=== PATIENT | male | born 1960 | race African-American/Black ===

== ENCOUNTER 2020-07-26 09:32 | Outpatient (REF) | payer MEDICAID, SELFPAY | END 2020-07-26 09:33 | disposition home or self-care (01) | LOC: HO.LAB 09:32 | PROVIDERS: Visit Provider Internal Medicine | DX: Z20.828 Contact with and (suspected) exposure to other viral communicable diseases (principal) | CPT/HCPCS: C9803; U0003 ==

== ENCOUNTER 2020-09-30 14:05 | Outpatient (REF) | payer MEDICAID, SELFPAY | END 2020-09-30 14:06 | disposition home or self-care (01) | LOC: HO.LAB 14:05 | PROVIDERS: Visit Provider Internal Medicine | DX: Z20.822 Contact with and (suspected) exposure to COVID-19 (principal) | CPT/HCPCS: 36415; C9803; U0003 ==

== ENCOUNTER 2020-12-30 09:43 | Outpatient (REF) | payer MEDICAID, SELFPAY ==
--- NOTE | ~2020-12-30 | CT_ITS ---
EXAMINATION: CT CHEST SCREENING CLINICAL INFORMATION: Smoking history COMPARISON: Previous chest CT scans most recent October 2019 TECHNIQUE: Multidetector volumetric CT imaging of the chest is performed without contrast using low dose technique. Additional 2D coronal and sagittal reformatted images and axial 3D maximum intensity projection (MIP) images are generated on the CT workstation. This CT examination was performed using dose optimization techniques as appropriate, variously including the following: *Automated exposure control *Adjustment of mA and/or kV according to patient size (this includes techniques or standardized protocols for targeted exams where dose is matched to indication/reason for exam; i.e. extremities or head) *Use of iterative reconstruction technique DLP: 62 mGy-cm FINDINGS: LUNGS: There is evidence of emphysema. There is a 3 mm triangular-shaped peripheral or subpleural left upper lobe nodule adjacent to the fissure axial image 111 series 4 that is stable. There is a 2 mm calcified right lower lobe nodule axial image series 4 that is stable. There is a 2 mm peripheral right lower lobe nodule axial image 361 series 5 No new pulmonary nodules are seen. No endobronchial or endotracheal lesion is seen. MEDIASTINUM: There is mild coronary artery calcification. The mediastinum is otherwise normal. PLEURA: There is no pleural effusion. No pleural mass or thickening. AXILLA: No lymphadenopathy. UPPER ABDOMEN: There are several small peripheral calcifications in the liver. There is a small calcification in the spleen. There may be diverticulosis of the colon. OSSEOUS STRUCTURES: There are mild degenerative changes of the spine. CT/CT lung screening IMPRESSION: Emphysema. Stable small pulmonary nodules. Mild coronary artery calcification. ASSESSMENT: Lung-RADS category 2: Benign RECOMMENDATION: Annual low-dose chest CT follow-up recommended.
== END 2020-12-30 09:44 | disposition home or self-care (01) ==
LOC: HO.CT 09:43
PROVIDERS: Visit Provider Surgery
DX: Z12.2 Encounter for screening for malignant neoplasm of respiratory organs (principal); F17.210 Nicotine dependence, cigarettes, uncomplicated
CPT/HCPCS: 71271

== ENCOUNTER 2021-03-21 13:00 | Outpatient (RCR) | payer MEDICARE, MEDICAID, SELFPAY | END 2021-03-31 10:13 | disposition home or self-care (01) | LOC: HO.PT 13:00 | PROVIDERS: PCP Internal Medicine; Visit Provider Internal Medicine | DX: M54.5 Low back pain (principal) | CPT/HCPCS: 97110; 97161 ==

== ENCOUNTER 2021-04-17 11:35 | Outpatient (REF) | payer MEDICARE, MEDICAID, SELFPAY ==
--- NOTE | ~2021-04-17 | XR_ITS ---
EXAMINATION: XR THORACIC SPINE CLINICAL INFORMATION: Low back pain COMPARISON: CT of chest December 30, 2020, November 11, 2018. Chest x-ray March 25, 2017 TECHNIQUE: 3 views of the thoracic spine were obtained. FINDINGS: There is slight anterior wedge compression deformity of the T11 and T10 and T9 vertebrae unchanged since prior chest x-ray March 25, 2017. No fracture line. The alignment of the vertebrae is normal. Minor degenerative lipping at the anterior endplates of lumbar vertebrae. Thoracic disc space heights are normal. XR/XR thoracic spine 3V IMPRESSION: 1. Slight anterior wedge compression deformities of T11, T10 and T9 vertebrae unchanged since chest x-ray March 25, 2017. No acute abnormality. 2. Mild degenerative spondylosis of the spine.
--- NOTE | ~2021-04-17 | XR_ITS ---
EXAMINATION: XR LUMBOSACRAL SPINE CLINICAL INFORMATION: Low back pain. COMPARISON: MRI lumbar spine January 24, 2007 TECHNIQUE: Three views of the lumbosacral spine. FINDINGS: Lumbar vertebrae have normal height. There is no fracture or bone destruction. The alignment of the vertebrae is normal. Mild degenerative lipping at the anterior endplates of lumbar vertebrae. Slight lumbar disc height narrowing at L3-L4. There has been mild progression of lumbar degenerative changes since prior MR exam of 2006. Facet joints are normal. No spondylolysis or spondylolisthesis. XR/XR lumbar spine 2-3V IMPRESSION: 1. No acute abnormality. 2. Mild degenerative spondylosis lumbar spine.
== END 2021-04-17 11:36 | disposition home or self-care (01) ==
LOC: HO.XRAY 11:35
PROVIDERS: PCP Internal Medicine; Visit Provider Internal Medicine
DX: M54.5 Low back pain (principal)
CPT/HCPCS: 72072; 72100

== ENCOUNTER 2022-12-29 08:42 | Outpatient (REF) | payer MEDICARE, MEDICAID, SELFPAY ==
--- NOTE | ~2022-12-29 | CT_ITS ---
EXAMINATION: CT CHEST WITHOUT CONTRAST CLINICAL INFORMATION: Emphysema. Pulmonary nodule. COMPARISON: Previous chest CT most recent December 2020 TECHNIQUE: Multidetector volumetric CT imaging of the chest was done. Axial MIP volume rendering provided. Sagittal and coronal reformatted images were obtained. This CT examination was performed using dose optimization techniques as appropriate, variously including the following: *Automated exposure control *Adjustment of mA and/or kV according to patient size (this includes techniques or standardized protocols for targeted exams where dose is matched to indication/reason for exam; i.e. extremities or head) *Use of iterative reconstruction technique DLP: 145 mGy-cm FINDINGS: GLASS CALIBRATOR: LUNGS: There is a new 4 mm left lower lobe nodule axial image 321 series 5. Pulmonary nodules are otherwise stable. No endobronchial or endotracheal lesion. There is evidence of emphysema. There is mild bronchial wall thickening and increased at peribronchial attenuation in the right lower lobe questionable for airways disease/respiratory bronchiolitis. MEDIASTINUM: Question wall thickening of the distal thoracic esophagus. The mediastinum is otherwise normal. CORONARY ARTERY CALCIFICATION: Mild PLEURA: There is no pleural effusion. No pleural mass or thickening. AXILLA: No lymphadenopathy. UPPER ABDOMEN: Small calcifications in the liver and spleen that are stable. OSSEOUS STRUCTURES: Mild degenerative changes of the spine. CT/CT chest wo IV con IMPRESSION: Emphysema. New 4 mm left lower lobe pulmonary nodule. Pulmonary nodules are otherwise stable. According to the UPDATED 2017 Fleischner Society recommendations, the advised follow-up imaging for less than 6 mm solid nodule: Low risk, no chest CT follow-up and high risk, optional chest CT follow-up in one year. Question wall thickening of the distal thoracic esophagus. Fleischner guidelines were followed.
== END 2022-12-29 08:43 | disposition home or self-care (01) ==
LOC: HO.CT 08:42
PROVIDERS: PCP Internal Medicine; Visit Provider Internal Medicine
DX: R91.8 Other nonspecific abnormal finding of lung field (principal); J43.9 Emphysema, unspecified
CPT/HCPCS: 71250

== ENCOUNTER 2023-06-07 18:34 | Outpatient (REF) | payer MEDICARE, MEDICAID, SELFPAY ==
[2023-06-07 19:42] LABS: Influenza A PCR NEGATIVE (Negative); Influenza B PCR NEGATIVE (Negative); Resp Syncy Virus RNA Qual PCR NEGATIVE (Negative); SARS COV2 PCR INHOUSE NEGATIVE (Negative)
== END 2023-06-07 18:35 | disposition home or self-care (01) ==
LOC: HO.HHCLNP 18:34
PROVIDERS: Visit Provider Internal Medicine
DX: Z20.822 Contact with and (suspected) exposure to COVID-19 (principal); J44.1 Chronic obstructive pulmonary disease with (acute) exacerbation
CPT/HCPCS: 0241U

== ENCOUNTER 2023-06-30 14:43 | Outpatient (AMB) | payer MEDICARE, MEDICAID, SELFPAY ==
--- NOTE | 2023-06-30 14:48 | MHC.OFFVIS ---
Intake Vital Signs 06/30/23 14:51 Height 5 ft 4 in Weight 145 lb 8.081 oz BMI 25.0 BP 120/81 Blood Pressure Location Lt brachial Position Sitting Pulse 84 Intake Visit Reasons: abnormalities of esophagus Intake Note: Ronak presents in the office as a new patient. CC: He states that he is having COPD issues - it has been acting up. He states that he only has pains in his stomach when he coughs. He has burning in his throat and has a constant cough that will not go away. Allergies No Known Allergies [No Known Allergies*] Allergy (Unverified 06/30/23 14:51) HPI HPI Comments History of Present Illness Details This is a 63y.o M with PMH of smoking that has led to COPD who is here for abnormal imaging. Pt reports having annual LDCTs for lung cancer screening. Most recent scan was in December of this year which also incidentally showed thickening of lower esophagus. Pt himself does not report any abd pain, chest pain, difficulty swallowing or unintentional weight loss. In terms of colorectal cancer screening, he reports having a cologuard test done through his PCP's office which was negative. Records not available re this. [facility] Family History (Updated 06/30/23 @ 14:53 by ARCELIA Veronica) Paternal Grandfather Colon cancer Social History (Updated 06/30/23 @ 14:52 by ARCELIA Veronica) Household Members: Family Alcohol intake: current Alcohol intake frequency: holidays/special occasions only Patient Tobacco Use Status: Former Tobacco user Substance Use Type: Marijuana Review of Systems Const All systems reviewed & are unremarkable except as noted in HPI and below Physical Exam Vital Signs: Last Vital Signs Pulse 84 06/30/23 14:51 BP 120/81 06/30/23 14:51 BMI result Body Mass Index 25.0 Gen appear: NAD HEENT: nonicteric, no cervical lymphadenopathy Chest: CTA CVS: Regular S1/S2 Abd: soft, nontender, nondistended, bowel sounds + Ext: no peripheral edema Neuro: A/Ox3, noted to move all extremities spontaneously Psych: interacting appropriately Assessment & Plan Assessment & Plan (1) Esophagitis: Code(s): K20.90 - Esophagitis, unspecified without bleeding (2) Colon cancer screening: Code(s): Z12.11 - Encounter for screening for malignant neoplasm of colon Plan 1. Noted incidentally on imaging in December. Pt does not report any sx currently however due to risk factors: age, sex, smoking status, will proceed with direct visualisation within the next few weeks. Ddx include erosive esophagitis, malignancy, underdistention of lower esophagus. Omeprazole 20 mg PO once daily prescribed empirically to be continued till EGD. 2. CRC screening: as above, cologuard negative this year per his report. Encouraged him to consider a colo for next screening which will be due in 3 years. Follow up after EGD. Orders: Orders Complete Blood Count no Diff 06/30/23 K20.90 - Esophagitis, unspecified without bleeding Medications: New omeprazole 20 mg PO DAILY 90 caps 0RF Coding Level of Care Code New Pt Level 4 (22223) Diagnoses Esophagitis K20.90 Colon cancer screening Z12.11
[2023-06-30 14:51] VITALS: BP 120/81; PULSE 84; BMI 25.0
== END 2023-06-30 16:10 | disposition home or self-care (01) ==
PROVIDERS: PCP Internal Medicine; Visit Provider Internal Medicine
DX: K20.90 Esophagitis, unspecified without bleeding (principal); Z12.11 Encounter for screening for malignant neoplasm of colon
CPT/HCPCS: 99204

== ENCOUNTER → 2023-06-30 14:43 | Outpatient (BNVA) | payer MEDICARE, MEDICAID, SELFPAY | PROVIDERS: PCP Internal Medicine; Visit Provider Internal Medicine ==

== ENCOUNTER 2023-08-27 11:07 | Emergency (ER) | payer MEDICARE, MEDICAID, SELFPAY ==
--- NOTE | ~2023-08-27 | XR_ITS ---
EXAMINATION: XR CHEST CLINICAL INFORMATION: Pain COMPARISON: Previous chest x-ray from [address] most recent December 2022 TECHNIQUE: 2 views of the chest were obtained. FINDINGS: The cardiac and mediastinal contours are stable. The lungs are well-inflated suggestive of COPD. The lungs are clear. No pleural effusion or pneumothorax. Mild degenerative changes of the spine. XR/XR chest 2V IMPRESSION: Well-inflated lungs. No evidence for acute disease in the chest.
[2023-08-27 11:30] VITALS: BP 135/103; PULSE 101; RESP 22; TEMP 36.2; O2SAT 97; BMI 23.4
--- NOTE | 2023-08-27 11:32 | ED.GENADULT ---
HPI - General Adult General Chief complaint: Upper Respiratory Symptoms Stated complaint: sob Time Seen by Provider: 08/27/23 16:13 Source: patient and old records reviewed Mode of arrival: ambulatory Limitations: no limitations History of Present Illness HPI narrative: 63 yo male with PMH of gastritis, COPD, asthma does not use home O2 here with c/o wheezing, sputum production and chills since Wednesday - he states he was possibly around someone sick. He came in as his neb and inhalers are not working. He cannot remember the last time he was on prednisone. MD complaint: asthma exacerbation Onset (ago): day(s) (4) Location: chest Radiation: non-radiation Severity: moderate Quality: other (tightness) Relieving factors: rest Exacerbating factors: other (coughing, exertion) Associated symptoms: cough, fever/chills and loss of appetite Treatments prior to arrival: other (INH and neb) Related Data Home Medications Medication Instructions Recorded Confirmed acetaminophen 500 mg tablet 500 mg PO Q6H PRN mild pain 06/30/23 albuterol sulfate 90 mcg/actuation inhalation 06/30/23 aerosol inhaler (Ventolin HFA) budesonide-formoterol HFA 160 inhalation 06/30/23 mcg-4.5 mcg/actuation aerosol inhaler (Symbicort) umeclidinium 62.5 mcg/actuation 1 inh inhalation DAILY 06/30/23 blister powder for inhalation (Incruse Ellipta) varenicline 1 mg tablet mg PO 06/30/23 vit C 250 mg-vit E 90 mg-zinc 40 1 cap PO BID 06/30/23 mg-copper 1 [id number] capsule (PreserVision AREDS-2) Previous Rx's Medication Instructions Recorded omeprazole 20 mg capsule,delayed 20 mg PO DAILY #90 caps 06/30/23 release azithromycin 250 mg tablet 250 mg PO DAILY 4 days #4 tabs 08/27/23 prednisone 20 mg tablet 40 mg (2 x 20 mg) PO DAILY 5 days 08/27/23 #10 tabs Allergies Allergy/AdvReac Type Severity Reaction Status Date / Time No Known Allergies Allergy Verified 08/27/23 11:30 [No Known Allergies*] Review of Systems Review of Systems: Constitutional : No Fever, pos Chills ENT/Mouth : No Hoarseness, No sore throat, No Rhinorrhea Eyes: No Redness, No Discharge, No Vision Changes Cardiovascular : No Chest Pain, positive SOB, positive Dyspnea on Exertion, No Edema Respiratory : positive Cough, No Sputum, positive Wheezing, Gastrointestinal : No Nausea, No Vomiting, No Diarrhea, No abdominal Pain Genitourinary : No Dysuria, No Hematuria Musculoskeletal : No joint pain, No Myalgias Skin : No rash Neuro : No Weakness, No Numbness, No Headache Psych : No anxiety, depression Heme/Lymph: No Bruising, No Bleeding Endocrine : No Polyuria, No Polydipsia All other systems reviewed and are negative [facility] Past Medical History Attestation statement: The following information was validated with the patient. Source: old records reviewed Medical History COPD (chronic obstructive pulmonary disease) Esophagitis Family History Family History (Updated 06/30/23 @ 14:53 by ARCELIA Veronica) Paternal Grandfather Colon cancer Social History Social History Household Members: Family Alcohol intake: current Alcohol intake frequency: holidays/special occasions only Patient Tobacco Use Status: Former Tobacco user Smoked in Last 30 Days: No Use of substances other than those prescribed or required for medical reasons: No Substance Use Type: Marijuana Advance Directives: No Advance Directives Information Provided: Yes Physical Exam ED Vital Signs: Vital Signs - 24 hr 08/27/23 11:30 08/27/23 16:09 08/27/23 16:09 Temperature 97.2 F 98.5 F Pulse Rate 101 H 100 Respiratory Rate 22 H 20 Blood Pressure 135/103 H 126/82 Pulse Oximetry 97 98 98 Oxygen Delivery Method Room Air Room Air Room Air 08/27/23 17:29 Temperature Pulse Rate 78 Respiratory Rate 18 Blood Pressure Pulse Oximetry Oxygen Delivery Method BMI result Body Mass Index 23.4 Appearance: Alert. Oriented X3. No acute distress. Eyes: Pupils equal, round and reactive to light. ENT: Pharynx normal. Neck: Normal inspection. Neck supple. CVS: Normal heart rate and rhythm. Pulses normal. Respiratory: No respiratory distress. Breath sounds diffuse exp and insp wheezes Abdomen: Soft and nontender. Skin: Skin warm and dry. Normal skin color. Normal skin turgor. Extremities: No lower extremity edema. No calf ttp Neuro: Oriented X 3. No motor deficit. No sensory deficit. Course Course Course Narrative: RME- 63-year-old male presents for evaluation shortness of breath for last 3 days. Reports no improvement with inhalers. Plan for viral swab, chest x-ray Medications Administered Discontinued Medications Generic Name Dose Route Start Last Admin Trade Name Helga PRN Reason Stop Dose Admin Albuterol Sulfate 2.5 mg/ 5 mg 08/27/23 17:20 08/27/23 17:27 Albuterol Sulfate 2.5 mg INHALE 08/27/23 17:21 5 mg ONCE ONE Administration Magnesium Sulfate 2 gm in 50 mls @ 150 mls/hr 08/27/23 16:35 08/27/23 17:10 Magnesium Sulfate/H2o IV 08/27/23 16:54 Infused ONCE ONE Infusion Methylprednisolone Sodium Succinate 60 mg 08/27/23 16:34 08/27/23 16:49 Methylprednisolone Sod Succ 125 Mg/2 Ml Vial IVPUSH 08/27/23 16:35 60 mg ONCE ONE Administration Medical Decision Making Medical Decision Making [facility] Narrative: 63 yo male with PMH of gastritis, COPD, asthma here with 4 days of cough, wheezing and chills - no fevers at this time he is wheezing no hypoxia will obtain basic labs, EKG, CXR, viral panel start on neb and IV steroids along with magnesium. Suspect asthma exacerbation - he smokes THC but not cigarettes Differential Diagnosis Differential Diagnoses: The differential diagnosis associated with the presentation includes asthma, COPD Admission/Observation Consideration of admission/observation: Escalation of care including admission/observation considered 98% on RA< feels much better clear lungs stable for DC at this time Lab Data [facility] Lab Attestation statement: I reviewed the patient's lab results. 08/27/23 16:44 08/27/23 16:43 Labs: Lab Results 08/27/23 08/27/23 08/27/23 Range/Units 11:52 16:43 16:44 WBC 3.6 L (4.8-10.8) X10*3/uL RBC 5.23 (4.60-5.80) X10*6/uL Hgb 15.7 (14.0-18.0) g/dl Hct 45.4 (42.0-52.0) % MCV 86.8 (80.0-98.0) fL MCH 30.0 (27.0-33.0) pg MCHC 34.6 (31.0-36.0) g/dl RDW 13.4 (11.0-16.0) % Plt Count 200 (160-400) X10*3/uL MPV 8.4 L (9.4-12.4) fL Immature Gran % (Auto) 0.3 (0.0-0.4) % Neut % (Auto) 46.4 (45-73) % Lymph % (Auto) 33.5 (20-40) % [place] % (Auto) 19.2 H (2-11) % Eos % (Auto) 0.0 (0-4) % Baso % (Auto) 0.6 (0-2) % Lymph # (Auto) 1.2 (1.2-4.9) X10*3/uL [place] # (Auto) 0.7 (0.1-1.2) X10*3/uL Eos # (Auto) 0.0 (0.0-0.4) X10*3/uL Baso # (Auto) 0.0 (0.0-0.2) X10*3/uL Abs Immat Gran (auto) 0.01 (0.00-0.03) X10*3/uL Absolute Neuts (auto) 1.7 L (2.0-8.3) x10*3/uL Absolute Nucleated RBC 0.000 (0.0-0.012) X10*3/uL Nucleated RBC % (auto) 0.0 (0.0-0.2) /100WBC Sodium 136 (135-145) mmol/L Potassium 4.5 (3.3-5.1) mmol/L Chloride 104 (96-108) mmol/L Carbon Dioxide 25 (22-29) mmol/L Anion Gap 12 (12-20) BUN 14 (9-16) mg/dL Creatinine 1.05 (0.5-1.4) mg/dL Estim Creat Clear Calc 59.5 Estimated GFR > 60 Random Glucose 89 (60-115) mg/dL Calcium 9.3 (8.4-10.2) mg/dL Magnesium 2.3 (1.6-2.6) mg/dL Total Bilirubin 0.3 (0.0-1.0) mg/dL Direct Bilirubin 0.1 (0.0-0.5) mg/dL AST 20 (5-37) U/L ALT 13 (0-40) U/L Alkaline Phosphatase 103 (39-117) U/L Total Protein 7.8 (6.5-8.0) g/dL Albumin 4.2 (3.5-5.0) g/dL Influenza Type A (PCR) NEGATIVE (Negative) Influenza Type B (PCR) NEGATIVE (Negative) RSV RNA Qual (PCR) NEGATIVE (Negative) SARS-CoV-2 RNA (RT-PCR) NEGATIVE (Negative) Independent Interpretation I performed an independent interpretation of an: EKG and Plain X-Ray (normal ) Interpretation: Rate: 91 Rhythm: NSR [place]: normal Normal P waves. Normal RAIN. RBBB ST T wave : inverted t wave V1, no ROHAN qTC: normal prior studies: no priors since 2006 RBBB is new The study has been interpreted contemporaneously by me. . Radiology Impression Discussion of test interpretation with radiology: I have reviewed the radiologist's reading. External Record Review External record reviewed: Inpatient record Prescription Management I considered prescription management with: Antibiotic and Other Discharge Plan Discharge Clinical Impression: Acute bronchitis with COPD Patient Disposition: Home, Self-Care Instructions: COPD (Chronic Obstructive Pulmonary Disease) (ED) Additional Instructions: return for worsening breathing, fevers, chest pain no improvement or any other concerns. take all medications. continue to use your inhalers and nebulizer. Prescriptions: New azithromycin 250 mg tablet 250 mg PO DAILY 4 Days Qty: 4 0RF Rx Instructions: start on day 2 of therapy prednisone 20 mg tablet 40 mg PO DAILY 5 Days Qty: 10 0RF No Action albuterol sulfate [Ventolin HFA] 90 mcg/actuation HFA aerosol inhaler inhalation budesonide-formoterol [Symbicort] 160-4.5 mcg/actuation HFA aerosol inhaler inhalation Incruse Ellipta 62.5 mcg/actuation blister with device 1 inh inhalation DAILY acetaminophen 500 mg tablet 500 mg PO Q6H PRN (Reason: mild pain) PreserVision AREDS-2 250-90-40-1 mg capsule 1 cap PO BID varenicline 1 mg tablet PO omeprazole 20 mg capsule,delayed release(DR/EC) 20 mg PO DAILY Qty: 90 0RF
[2023-08-27 12:40] LABS: Influenza A PCR NEGATIVE (Negative); Influenza B PCR NEGATIVE (Negative); Resp Syncy Virus RNA Qual PCR NEGATIVE (Negative); SARS COV2 PCR INHOUSE NEGATIVE (Negative)
[2023-08-27 16:09] VITALS: BP 126/82; PULSE 100; RESP 20; TEMP 36.9; O2SAT 98
--- NOTE | 2023-08-27 16:15 | PC.NURSE ---
a&ox4, vss and up to date aside from being borderline sinus tachy on the laboratory monitor. pt comes in today w/ UR sx x few days. pt verbalizes feeling increased sob upon exertion. pt displays w/ slight sob/wob. pt able to speak in full/clear sentences but tries to catch his breath when speaking. fine crackles noted throughout upon auscultation. O2 stable on RA. no decelerations in O2 when speaking w/ pt. respirations even/slightly labored. pt aware of swab results/waiting to speak w/ ED provider at this time. call pulido placed within reach.
--- NOTE | 2023-08-27 16:34 | ECG_ITS ---
Test Reason : DYPSNEA Blood Pressure : / mmHG Vent. Rate : 091 BPM Atrial Rate : 091 BPM P-R Int : 130 ms QRS Dur : 110 ms QT Int : 336 ms P-R-T Axes : 056 058 056 degrees QTc Int : 413 ms Normal sinus rhythm Low voltage QRS Right bundle branch block Abnormal ECG When compared with ECG of 26-NOV-2006 12:48, Right bundle branch block is now Present Referred By: Melissa Irby Electronically Signed By:KRUPA RICE
[2023-08-27 16:47] LABS: MANUAL DIFF FLAG NO
[2023-08-27] MEDS: methylPREDNISolone Sod Succ 125 MG/2 ML VIAL 60 MG IVPUSH (16:49)
[2023-08-27 16:50] LABS: Basophils Percent Auto 0.6 % (0-2); Hematocrit 45.4 % (42.0-52.0); Hemoglobin 15.7 g/dl (14.0-18.0); Imm Gran Abs Auto 0.01 X10*3/uL (0.00-0.03); Imm Gran Pct Auto 0.3 % (0.0-0.4); Lymphocytes Absolute Auto 1.2 X10*3/uL (1.2-4.9); Lymphocytes Percent Auto 33.5 % (20-40); Mean Corpuscular HGB Conc 34.6 g/dl (31.0-36.0); Mean Corpuscular Volume 86.8 fL (80.0-98.0); Mean Platelet Volume 8.4 fL (9.4-12.4); Monocytes Absolute Auto 0.7 X10*3/uL (0.1-1.2); Monocytes Percent Auto 19.2 % (2-11); Neutrophils Absolute Auto 1.7 x10*3/uL (2.0-8.3); Neutrophils Percent Auto 46.4 % (45-73); Platelet Count 200 X10*3/uL (160-400); Red Blood Count 5.23 X10*6/uL (4.60-5.80); Red Cell Distribution Width 13.4 % (11.0-16.0); White Blood Count 3.6 X10*3/uL (4.8-10.8)
[2023-08-27] MEDS: Magnesium Sulfate/H2O 2 GM/50 ML PIGGYBACK IV (16:50)
--- NOTE | 2023-08-27 16:50 | PC.NURSE ---
20gIV placed in the left AC w/o difficulty - labs drawn and sent to lab. medication administered per provider order.
[2023-08-27 17:07] LABS: Alanine Aminotransferase 13 U/L (0-40); Albumin Level 4.2 g/dL (3.5-5.0); Alkaline Phosphatase 103 U/L (39-117); Anion Gap 12 (12-20); Aspartate Amino Transferase 20 U/L (5-37); Bilirubin Direct 0.1 mg/dL (0.0-0.5); Bilirubin Total 0.3 mg/dL (0.0-1.0); Blood Urea Nitrogen 14 mg/dL (9-16); Calcium 9.3 mg/dL (8.4-10.2); Carbon Dioxide 25 mmol/L (22-29); Chloride 104 mmol/L (96-108); Creatinine Clr Calc Pharmacy 59.5; Estimated Glomerular Filt Rate > 60; Glucose Random 89 mg/dL (60-115); Magnesium 2.3 mg/dL (1.6-2.6); Potassium 4.5 mmol/L (3.3-5.1); Sodium 136 mmol/L (135-145); Total Protein 7.8 g/dL (6.5-8.0)
--- NOTE | 2023-08-27 17:24 | PC.NURSE ---
RT bedside - pt now receiving nebulizer treatment.
[2023-08-27] MEDS: Albuterol Sulfate 2.5 MG, Albuterol Sulfate (0.083%) 2.5 MG 5 MG INHALE (17:27)
[2023-08-27 17:29] VITALS: PULSE 78; RESP 18; O2SAT 96
--- NOTE | 2023-08-27 17:58 | PC.NURSE ---
pt speaking w/ ED provider at this time. pt aware of plan of care.
[2023-08-27] MEDS: Azithromycin 500 MG TABLET PO (18:05)
--- NOTE | 2023-08-27 18:07 | PC.NURSE ---
medication administered per provider order.
== END 2023-08-27 18:17 | disposition home or self-care (01) ==
PROVIDERS: Physician Assistant; Emergency Provider Emergency Medicine
DX: J40 Bronchitis, not specified as acute or chronic (principal); J44.9 Chronic obstructive pulmonary disease, unspecified; R06.02 Shortness of breath; R07.89 Other chest pain; R05.9 Cough, unspecified; R50.9 Fever, unspecified; Z20.822 Contact with and (suspected) exposure to COVID-19; Z20.828 Contact with and (suspected) exposure to other viral communicable diseases; Z79.899 Other long term (current) drug therapy
CPT/HCPCS: 0241U; 36415; 71046; 80048; 80076; 83735; 85025; 93005; 94640; 96365; 96375; 99284; 99285; J2930; J3475

== ENCOUNTER → 2023-08-27 16:34 | Outpatient (BNV) | payer MEDICARE, MEDICAID, SELFPAY | PROVIDERS: Emergency Provider Emergency Medicine; Visit Provider Internal Medicine | DX: R94.31 Abnormal electrocardiogram [ECG] [EKG] (principal) | CPT/HCPCS: 93010 ==

== ENCOUNTER 2023-09-21 12:10 | Outpatient (REF) | payer MEDICARE, MEDICAID, SELFPAY | END 2023-09-21 12:11 | disposition home or self-care (01) | LOC: HO.HHCX 12:10 | PROVIDERS: Visit Provider Internal Medicine | DX: M25.522 Pain in left elbow (principal) | CPT/HCPCS: 73080 ==

== ENCOUNTER 2023-10-28 13:33 | Outpatient (AMB) | payer MEDICARE, MEDICAID, SELFPAY ==
--- NOTE | 2023-10-28 13:36 | MHC.OFFVIS ---
Intake Vital Signs 10/28/23 13:42 Height 5 ft 4 in Weight 141 lb BMI 24.2 BP 90/60 Blood Pressure Location Lt brachial Position Sitting Pulse 72 Pulse Oximetry (%) 98 Intake Visit Reasons: pulmonary emphysema Allergies No Known Allergies [No Known Allergies*] Allergy (Verified 10/28/23 13:36) HPI HPI Comments History of Present Illness Details The patient is here for pulmonary evaluation. The patient is a 63 year old gentleman with known history of COPD and tobacco dependency. The patient states that he has had worsening respiratory symptoms for the last few months. Significant chronic bronchitis significant mucus production. He does complain of shortness of breath even with minimal activity. He has not been able to participate in his kids activities due to the fact that he gets short of breath. He has been on Symbicort and also Incruse. He also has a nebulizer that is helpful. Unfortunately he restarted smoking. He spent about 6 months without smoking. Initially he was able to quit with Chantix and then he stopped the Chantix and it was to stay smoke free. But then something happened that getting back to smoking now smoking about half a pack a day. Since he has been smoking his respiratory status has been worsening. We did review his last CT scan of the chest that was back in December 2022 demonstrating extensive emphysema in addition to that the patient does have pulmonary nodules. He will need a follow-up CT scan. At this point though will work on getting him to swab smoking were also get him to do pulmonary function studies and then hopefully get him to pulmonary rehabilitation as soon as possible. I do believe this will help him improve his respiratory status. Then after that when he follows up with talk about further imaging studies. [facility] Medical History (Updated 10/29/23 @ 08:44 by Rafael Vinson MD) Pulmonary nodules Tobacco dependence Asthma-COPD overlap syndrome COPD (chronic obstructive pulmonary disease) Esophagitis Surgical History (Updated 08/31/23 @ 14:14 by Rachel Armstrong RN) Hx of bilateral cataract extraction Family History (Updated 06/30/23 @ 14:53 by ARCELIA Veronica) Paternal Grandfather Colon cancer Social History (Updated 10/28/23 @ 13:45 by ARCELIA Louis) Household Members: Family Alcohol intake: current Alcohol intake frequency: holidays/special occasions only Patient Tobacco Use Status: Current everyday Tobacco user Cigarette Packs Per Day: 0.5 Cigarettes Per Day: 10 Years Smoked: 30 + Substance Use Type: Marijuana Review of Systems Const Denies weight loss Eyes Denies change in vision ENT Denies change in voice Card Denies chest pain and Reports dyspnea on exertion Resp Reports chest congestion, Reports cough, Reports dyspnea on exertion and Reports wheezing GI Reports no additional complaints Musc Reports no additional complaints Skin/Breast Denies rash Neuro Reports no additional complaints Isidro/Lymph Denies lymphadenopathy Aller/Immun Reports wheezing Physical Exam Vital Signs: Last Vital Signs Pulse 72 10/28/23 13:42 BP 90/60 10/28/23 13:42 Pulse Ox 98 10/28/23 13:42 BMI result Body Mass Index 24.2 Const General: comfortable HEENT Head: Yes normocephalic Neck Neck: Yes supple Chest Chest palpation & inspection: normal inspection of the chest Resp Effort & Inspection: normal respiratory effort and prolonged expiratory phase Auscultation: rhonchi, wheezes and diminished lung sounds Cardio Heart sounds: S1 normal heart sound present and S2 normal heart sound present GI Palpation (GI): Soft to palpation Skin General skin exam: no rashes or lesions noted Extrem General: Yes clubbing, No cyanosis and No edema Assessment & Plan Assessment & Plan (1) Asthma-COPD overlap syndrome: Code(s): J44.89 - Other specified chronic obstructive pulmonary disease (2) Tobacco dependence: Code(s): F17.200 - Nicotine dependence, unspecified, uncomplicated (3) Pulmonary nodules: Code(s): R91.8 - Other nonspecific abnormal finding of lung field Plan stop Symbicort/incruse start Trelegy nebulizer 1-2 times a day start Azithromycin MWF start chantix PFTs/Pulmonary rehab will need addtional imaging studies, will arrange during his f/u F/U 2-3 months Orders: Orders PFT pulmonary function test 10/28/23 J44.89 - Other specified chronic obstructive pulmonary disease Pulmonary Rehab 10/28/23 J44.89 - Other specified chronic obstructive pulmonary disease Medications: New varenicline (Chantix Starting Month Box) PO PER PKG DIR 53 ea 0RF azithromycin Take 1 tablet on Wednesday/Wednesday/Wednesday 250 mg PO 3XW 28 days 12 tabs 2RF K21.9 - Gastro-esophageal reflux disease without esophagitis wxwfzhkilxm-shumydhdx-bdivepav 200-62.5-25 mcg (Trelegy Ellipta) 1 inh inhalation DAILY 30 days 60 ea 12RF Coding Level of Care Code New Pt Level 4 (53760) Diagnoses Asthma-COPD overlap syndrome J44.89 Tobacco dependence F17.200 Pulmonary nodules R91.8 Time Spent (min) 37
[2023-10-28 13:42] VITALS: BP 90/60; PULSE 72; O2SAT 98; BMI 24.2
== END 2023-10-28 14:04 | disposition home or self-care (01) ==
PROVIDERS: PCP Internal Medicine; Referring Provider Internal Medicine; Visit Provider Hospitalist
DX: J44.89 Other specified chronic obstructive pulmonary disease (principal); F17.200 Nicotine dependence, unspecified, uncomplicated; R91.8 Other nonspecific abnormal finding of lung field
CPT/HCPCS: 99204

== ENCOUNTER → 2023-10-28 13:33 | Outpatient (BNVA) | payer MEDICARE, MEDICAID, SELFPAY | PROVIDERS: PCP Internal Medicine; Referring Provider Internal Medicine; Visit Provider Hospitalist | DX: J44.89 Other specified chronic obstructive pulmonary disease (principal); R91.8 Other nonspecific abnormal finding of lung field; F17.210 Nicotine dependence, cigarettes, uncomplicated | CPT/HCPCS: 99202 ==

== ENCOUNTER 2023-12-03 09:50 | Outpatient (REF) | payer MEDICARE, MEDICAID, SELFPAY ==
--- NOTE | 2023-12-03 11:34 | PFT_ITS ---
Indication: COPD Spirometry [FEV1 to FVC 44%; FEV1 1.8 L; FVC 4.1 L. There was a significant response to bronchodilators noted. Maximum voluntary ventilation 61% predicted ] Lung Volumes [Total lung capacity 125% predicted; residual volume 184% predicted] Diffusion Capacity [DLCO 46% predicted] Comparisons [None] Interpretation [There has an obstructive ventilatory defect consistent with moderate COPD. There was a significant response to bronchodilators noted. The patient does have a moderate decrease in maximum voluntary ventilation secondary to likely deconditioning and also worsening dynamic inspiratory capacity. Lung volumes with significant air trapping hyperinflation due to the COPD. The patient also has a moderate to severe diffusion impairment secondary to emphysema and or other parenchymal lung conditions should also be considered. Clinical correlation warranted.] MTDD
== END 2023-12-03 09:51 | disposition home or self-care (01) ==
LOC: HO.RESP 09:50
PROVIDERS: PCP Internal Medicine; Visit Provider Hospitalist
DX: J44.89 Other specified chronic obstructive pulmonary disease (principal)
CPT/HCPCS: 94010; 94727; 94729

== ENCOUNTER → 2023-12-03 11:34 | Outpatient (BNV) | payer MEDICARE, MEDICAID, SELFPAY | PROVIDERS: PCP Internal Medicine; Visit Provider Hospitalist | DX: J44.89 Other specified chronic obstructive pulmonary disease (principal) | CPT/HCPCS: 94060; 94727; 94729 ==

== ENCOUNTER 2025-03-22 10:47 | Outpatient (REF) | payer MEDICARE, MEDICAID, SELFPAY ==
--- NOTE | ~2025-03-22 | XR_ITS ---
EXAMINATION: XR CHEST CLINICAL INFORMATION: cough, sob COMPARISON: August 2023 TECHNIQUE: 2 views of the chest were obtained. FINDINGS: Lungs remain hyperinflated. Lungs are clear. Heart and mediastinal contours are within normal limits. XR/XR chest 2V IMPRESSION: Hyperinflation/air trapping. Electronically signed by: Tung Keenan MD 03/22/2025 11:40 AM EDT
[2025-03-22 14:08] LABS: Alanine Aminotransferase 22 U/L (0-40); Albumin Level 4.5 g/dL (3.5-5.0); Alkaline Phosphatase 103 U/L (39-117); Anion Gap 12 (12-20); Aspartate Amino Transferase 26 U/L (5-37); Blood Urea Nitrogen 15 mg/dL (9-16); Calcium 9.6 mg/dL (8.4-10.2); Carbon Dioxide 27 mmol/L (22-29); Chloride 104 mmol/L (96-108); Estimated Glomerular Filt Rate > 60; Potassium 4.0 mmol/L (3.3-5.1); Sodium 139 mmol/L (135-145); Total Protein 7.2 g/dL (6.5-8.0)
== END 2025-03-22 10:48 | disposition home or self-care (01) ==
LOC: HO.HHCX 10:47
PROVIDERS: PCP Internal Medicine; Visit Provider Internal Medicine
DX: J44.1 Chronic obstructive pulmonary disease with (acute) exacerbation (principal); Z12.5 Encounter for screening for malignant neoplasm of prostate; Z00.00 Encounter for general adult medical examination without abnormal findings
CPT/HCPCS: 36415; 71046; 80053; 84153

== ENCOUNTER → 2025-03-22 11:27 | Outpatient (BNV) | payer MEDICARE, MEDICAID, SELFPAY | PROVIDERS: PCP Internal Medicine; Visit Provider Radiology Diagnostic Radiology | DX: R05.9 Cough, unspecified (principal); R06.02 Shortness of breath | CPT/HCPCS: 71046 ==

== ENCOUNTER 2025-03-26 13:47 | Outpatient (REF) | payer MEDICARE, MEDICAID, SELFPAY ==
[2025-03-26 17:25] LABS: Hematocrit 45.6 % (42.0-52.0); Hemoglobin 15.8 g/dl (14.0-18.0); Mean Corpuscular HGB Conc 34.6 g/dl (31.0-36.0); Mean Corpuscular Hemoglobin 29.9 pg (27.0-33.0); Mean Corpuscular Volume 86.2 fL (80.0-98.0); NRBC Abs Auto 0.000 X10*3/uL (0.0-0.012); NRBC Pct Auto 0.0 /100WBC (0.0-0.2); Platelet Count 310 X10*3/uL (160-400); Red Blood Count 5.29 X10*6/uL (4.60-5.80); White Blood Count 4.7 X10*3/uL (4.8-10.8)
[2025-03-26 17:26] LABS: Alanine Aminotransferase 25 U/L (0-40); Albumin Level 4.2 g/dL (3.5-5.0); Alkaline Phosphatase 96 U/L (39-117); Anion Gap 10 (12-20); Aspartate Amino Transferase 25 U/L (5-37); Blood Urea Nitrogen 15 mg/dL (9-16); Calcium 8.9 mg/dL (8.4-10.2); Carbon Dioxide 27 mmol/L (22-29); Chloride 105 mmol/L (96-108); Estimated Glomerular Filt Rate > 60; Potassium 4.1 mmol/L (3.3-5.1); Sodium 138 mmol/L (135-145); Total Protein 7.0 g/dL (6.5-8.0)
[2025-03-26 17:54] LABS: Iron 72 mcg/dL (45-160); Percent Iron Saturation 22 % (15-50); Total Iron Binding Capacity 326 mcg/dL (228-428); Unsaturated Iron Binding 254 ug/dL
[2025-03-26 18:11] LABS: Ferritin 40 ng/mL (20-250)
== END 2025-03-26 13:48 | disposition home or self-care (01) ==
LOC: HO.HHCL 13:47
PROVIDERS: Absent Provider Internal Medicine; PCP Internal Medicine; Visit Provider Internal Medicine
DX: Z00.00 Encounter for general adult medical examination without abnormal findings (principal); J44.1 Chronic obstructive pulmonary disease with (acute) exacerbation; K20.90 Esophagitis, unspecified without bleeding; R91.8 Other nonspecific abnormal finding of lung field; R06.02 Shortness of breath; R06.01 Orthopnea; F17.210 Nicotine dependence, cigarettes, uncomplicated
CPT/HCPCS: 36415; 80053; 82728; 83540; 84153; 85027; 99212

== ENCOUNTER 2025-03-26 15:27 | Outpatient (AMB) | payer MEDICARE, MEDICAID, SELFPAY ==
--- NOTE | 2025-03-26 15:34 | A.OFFVIS_ITS ---
Vital Signs 03/26/25 15:35 Height 5 ft 4 in Weight 149 lb 14.629 oz BMI 25.7 BP 97/65 Blood Pressure Location Lt brachial Position Sitting Pulse 81 Intake Visit Reasons: abn of esophagus Intake Note: Ronak presents in the office as a follow up for esophgitis. CC: He states he was sent here because they want him to have the EGD - he was having issues with swallowing but it got better. States he was told he has black spots inside his chest. 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 Was last seen 06/2023 and terri for EGD which was canceled a few times due to acute resp issues. Pt has known asthma/COPD overlap, sees pulmonology but reports that his shortness of breath persists. Worse with lying flat and bending. Reports he has previously been told about a weak heart more than a few years ago. Unable to recall where he had cardiac testing. Reports used to smoke 1 PPD now smokes 1-2 cigarettes a day. Peripheral symptoms include cold, numb fingertips at moderate temperatures. [facility] Medical History Pulmonary nodules Tobacco dependence Asthma-COPD overlap syndrome COPD (chronic obstructive pulmonary disease) Esophagitis Surgical History Hx of bilateral cataract extraction Family History Paternal Grandfather Colon cancer Social History Household Members: Family Alcohol intake: current Alcohol intake frequency: holidays/special occasions only Patient Tobacco Use Status: Current everyday Tobacco user Cigarette Packs Per Day: 0.5 Cigarettes Per Day: 10 Years Smoked: 30 + Substance Use Type: Marijuana Review of Systems Const All systems reviewed & are unremarkable except as noted in HPI and below Physical Exam Vital Signs: Last Vital Signs Pulse 81 03/26/25 15:35 BP 97/65 07/07/25 15:35 BMI result Body Mass Index 25.7 No apparent distress Nonicteric Abdomen soft, nondistended Alert and oriented x3, normal gait Assessment & Plan Assessment & Plan (1) Orthopnea: Code(s): R06.01 - Orthopnea Category: Medical (2) Asthma-COPD overlap syndrome: Code(s): J44.89 - Other specified chronic obstructive pulmonary disease Category: Medical (3) Pulmonary nodules: Code(s): R91.8 - Other nonspecific abnormal finding of lung field Category: Medical (4) Dyspnea: Code(s): R06.00 - Dyspnea, unspecified Category: Medical Plan 1. Esophagitis. As above, noted on CT chest 2022. Will start with barium swallow and see if EGD is even indicated at this point. - Plan for barium esophagogram. 2. Dyspnea While likely from asthma/COPD given report of orthopnea and previous weak heart will check echo. Will also get labs to r/o anemia. - Echo - Labs 3. Tobacco Use Disorder - Advise cessation --- Pt was informed and consented to the use of ambient scribe for this encounter. --- Orders: Orders Complete Blood Count no Diff Today R06.00 - Dyspnea, unspecified FL barium swallow Today K20.90 - Esophagitis, unspecified without bleeding CA echo transthoracic complete Today R06.01 - Orthopnea IRON PROFILE Today R06.00 - Dyspnea, unspecified Ferritin Today R06.00 - Dyspnea, unspecified Patient Instructions: - Get the scheduled X-ray esophagua and echocardiogram. - Follow up with your baker pie. - Continue to reduce tobacco use. - Complete scheduled blood work. Coding Level of Care Code Est Pt Level 4 (41697) Diagnoses Orthopnea R06.01 Asthma-COPD overlap syndrome J44.89 Pulmonary nodules R91.8 Dyspnea R06.00
[2025-03-26 15:35] VITALS: BP 97/65; PULSE 81; BMI 25.7
== END 2025-03-26 15:53 | disposition home or self-care (01) ==
LOC: HO.HGI 15:28
PROVIDERS: PCP Internal Medicine; Visit Provider Internal Medicine
DX: R06.01 Orthopnea (principal); J44.89 Other specified chronic obstructive pulmonary disease; R91.8 Other nonspecific abnormal finding of lung field; R06.00 Dyspnea, unspecified
CPT/HCPCS: 99214

== ENCOUNTER → 2025-05-01 10:55 | Outpatient (REF) | payer MEDICARE, MEDICAID, SELFPAY ==
--- NOTE | 2025-05-01 10:57 | CA_ITS ---
Transthoracic Echocardiogram Patient (Last, First, Middle): Ronak Gómez, Gender: Male Date of : 1960 Age: 65 Procedure Date: 05/01/2025 Procedure Type: Transthoracic Echocardiogram Location: OP Height: 162.56 cm Weight: 67.59 kg BSA: 1.73 m2 Heart Rate: bpm BP: 97 / 65 mmHg Carpenter Form: CHRISTINA Referring MD: Wendy Badillo MD Symptoms: R06.01 - Orthopnea Study Quality: Fair ECG Rhythm: Sinus Conclusions: - The left ventricular systolic function is normal. The calculated ejection fraction is 68% by biplane method. - No obvious valvular pathology seen on this study. Findings Left Ventricle Normal left ventricular cavity size. There is normal left ventricular wall thickness. The left ventricular systolic function is normal. The calculated ejection fraction is 68% by biplane method. There is no evidence of regional wall motion abnormalities. Diastolic function is normal for age. Right Ventricle Normal right ventricular cavity size and systolic function. Atria Both atria are normal in size. Aortic Valve There is a normal trileaflet aortic valve. There is no aortic valve stenosis. There is no aortic valve regurgitation. Mitral Valve The mitral valve appears normal. There is no mitral valve regurgitation. There is no mitral valve stenosis. Pulmonic Valve The pulmonic valve is likely normal. Tricuspid Valve There is trace tricuspid valve regurgitation. There is no evidence of pulmonary hypertension. Great Vessels The asc aorta is normal in size. Venous The inferior vena cava is normal in size and collapses greater than 50% with inspiration. Pericardium/Pleural There is no evidence of pericardial effusion. Prior Study Comparison No prior study available for comparison. Recommendations, Care & Conclusions No obvious valvular pathology seen on this study. Measurements 2D Linear Measurements IVSd: 1.00 0.6-0.9/0.6-1.0 cm LVIDd: 3.57 3.9-5.3/4.2-5.9 cm LVIDd Index: 2.06 2.4-3.2/2.2-3.1 cm/m2 LVIDs: 2.40 2.0-3.6 cm LVPWd: 0.91 0.7-1.1 cm LA Diam: 3.50 2.7-3.8/3.0-4.0 cm LAIDs Index: 2.02 1.5-2.3 cm/m2 LV Mass: 123.83 67-162/88-224 g LV Mass Index: 71.58 43-95/49-115 g/m2 LVOT Diam: 2.20 3.0+(-)1.3 cm 2D Systolic Function EF 4C: 67.90 >55% EF 2C: 67.60 >55% EF BiP: 68.20 >55% Mitral Valve MV Pk E: 0.48 MV PK A: 0.70 MV Decel Time: 332.00 E/A: 0.70 E'Lateral: 9.46 E'Medial: 6.64 E/E' Med: 7.20 E/E' Lat: 5.00 PHT: 97.00 MVA PHT: 2.27 Decel Chariton: 1.43 Aortic Valve AoV Pk Trevon: 0.92 AoV Mn Trevon: 0.71 AoV VTI: 0.21 AoV Pk Grad: 3.00 Aov Mn Grad: 2.00 YANNICK Cont.VTI: 2.91 LVOT LVOT Pk Trevon: 0.75 LVOT Mn Trevon: 0.50 LVOT VTI: 0.16 LVOT Pk Grad: 2.00 LVOT Mn Grad: 1.00 LVOT Diam: 2.20 LVOT Area: 3.80 Diastolic Function MV Pk E: 0.48 MV Pk A: 0.70 E/A: 0.70 E'Medial: 6.64 E/E' Med: 7.20 E' Laterial: 9.46 E/E' Lat: 5.00 Right Ventricle TAPSE (mm): 22.60 TVS' Trevon: 10.00 Tricuspid Valve TR Pk Trevon: 1.90 TR Pk Grad: 14.00 RA Press: 3.00 RVSP: 17.00 Great Vessels Aorta Sinus of Valsalva: 3.63 2.0-3.[address] Ridge: 2.97 1.7-3.4 cm Ao Asc: 3.60 2.1-3.4 cm Updated in Other Vendor System with Status of Final Robson Carlos MD electronically signed on 05/01/2025 12:37:14 PM with status of Final
--- OUTSIDE RECORDS SUMMARY | 2025-05-01 12:02 | XMS_ITS | Encounter Summary ---
Author Organization [employer] Address [address] [place] [address] Care Team Providers Care Tech Writer Name Role Phone Emmanuel Hyatt MD Primary Care Provi [facility] Encounter Details Date Type Department Care Team (Late st Contact Info) Description 04/27/2025 Telephone Lung Screening Program - [address] [place] [address] Audrey Mattson MA Social History Tobacco Use Types Packs/Day Years Used Date Smoking Tobacco: Every Day Cigarettes 1 58.7 Started: 09/05/1966 Smokeless Tobacco: Never Sex and Gender Information Value Date Recorded Sex Assigned at Not on file Legal Sex Male 2:16 AM EST Gender Identity Not on file Sexual Orientation Not on file documented as of this encounter Progress Notes * Audrey Mattson MA - 04/27/2025 8:06 AM EDT Ronak Gómez was contacted by the Lung Cancer Screening Program today to confirm the appointment of their Lung Cancer Screening. The patient is currently scheduled to have their screening on [id number], at 730 AM at [facility]. Patient needs to reschedule his appointment,due to day and time wants Wednesday -Wednesday 10 AM or after . New date is May at 1115 AM For all screenings scheduled during the week, the patient will check in at Patient Registration on the first floor of the main hospital. For screenings that take place on the weekend or after 5pm, check-in directly in Radiology. The patient was given the Lung Cancer Screening Program phone number, , to contact if they have any additional questions, concerns or need to reschedule. Patients are encouraged to call our office and reschedule if they are exhibiting any cold-like symptoms, have recently been treated for Pneumonia or Influenza (the flu) or have had another CT of their Chest since their last screening. documented in this encounter Plan of Treatment Upcoming Encounters Date Type Department Care Team (Late st Contact Info) Description 05/24/2025 11:15 AM EDT Appointment [facility] CT Scan [address] [place] [address] documented as of this encounter Visit Diagnoses Not on filedocumented in this encounter Care Teams Tech Writer Relationship Specialty Start Date End Date Emmanuel Hyatt MD [address] [place] [address] [place] [address] PCP - General 09/21/23 documented as of this encounter
--- OUTSIDE RECORDS SUMMARY | 2025-05-01 12:02 | XMS_ITS | Encounter Summary ---
Author Organization [employer] Address [address] [place] [address] [address] [place] [address] Care Team Providers Care Graphite Disk Assembler Name Role Phone Emmanuel Mccarthy MD Primary Care Provide r Reason for Referral * Consultation (Routine) - Authorized Specialty Diagnoses / Procedures Referred By Contprem t Referred To Contact Urology Diagnoses Elevated PSA Emmanuel Mccarthy MD [address] [place] [address] Phone: tel: fax: [facility] Referral ID Status Reason Start Date Expiration Date Visits Requested Visits Authorized [id number] Authorized Specialty Services Required 03/27/2025 03/27/2026 1 1 Reason for Visit * Reason Onset Date Comments Results 03/27/2025 Encounter Details Date Type Department Care Team (Latest Contact Info) Description 03/27/2025 Results Follow-Up [facility] [address] [place], [place] [phone] Emmanuel Mccarthy MD [address] [place], [place] [phone] PSA, Screen, Comprehensive Metabolic Panel Social History Tobacco Use Types Packs/Day Years Used Date Smoking Tobacco: Some Days Cigarettes Passive Smoke Exposure: Current Smokeless Tobacco: Never Alcohol Use Standard Drinks/Week Comments Not Currently 0 (1 standard drink = 0.6 oz pur e alcohol) Depression Answer Date Recorded Patient Health Questionnaire-9 Score 11 12/21/2024 Patient Health Questionnaire-9 Score 11 12/21/2024 Last PHQ-9: Questionnaire Data Not on file 0 12/21/2024 Housing Stability Answer Date Recorded What is your housing situation today? I have zoila foley 01/04/[address] you li ve. Do you have problems with any of the following? None of the above 01/04/2024 Food Insecurity Answer Date Recorded Within the past 12 months, y ou worried that your food would run out before you got money to buy more: Never True 01/04/2024 Within the past 12 months,th e food you bought just didn't last and you didn't have enough money to get more: Never True Transportation Answer Date Recorded In the past 12 months, has l ack of transportation kept you from medical appts, meetings, work or from getting things needed for daily living? No 01/04/2024 Utilities Answer Date Recorded In the past 12 months, has t he electric, gas, oil or water company threatened to shut off services in your home? No 01/04/2024 Depression Answer Date Recorded Patient Health Questionnaire-2 Score 4 12/21/2024 Internet Access Answer Date Recorded Internet Access Q1 Yes 12/21/2024 Internet Access Q2 Not on file 12/21/2024 Sex and Gender Information Value Date Recorded Sex Assigned at Male 07/20/2022 10:16 AM EDT Legal Sex Male 10:16 AM EDT Gender Identity Male 07/20/2022 10:16 AM EDT Sexual Orientation Straight 07/20/2022 10 :16 AM EDT documented as of this encounter Miscellaneous Notes * Telephone Encounter - Juliette Rios RN - 04/27/2025 8:47 AM EDT Placed call to [facility] who states that the pt has a scheduled appt for 05/28/2025 at 2 PM. The ptwill be seeing Dariana Miguel and has been notified of this appt. * Telephone Encounter - Baylee Iraheta RN - 03/27/2025 4:22 PM EDT Called pt, notified of elevated PSA level and that PCP placed urology referral (pending). Advised pt that referral letter will be mailed out in next 10 days and to expect call from urology office to schedule appt. Advised pt to call back if no word regarding the referral in 10 days, pt verbalized understanding, no further questions. * Telephone Encounter - Baylee Iraheta RN - 03/27/2025 4:22 PM EDT ----- Message from Emmanuel Cash MD sent at 03/27/2025 4:05 PM EDT ----- Please contact patient to let him know , his PSA is slightly elevated. I am placing a referral to Urology ----- Message ----- From: Interface, Lab Results In Sent: 03/22/2025 2:09 PM EDT To: Emmanuel Cash MD * Result Encounter Note - Emmanuel Cash MD - 03/27/2025 4:05 PM EDT Please contact patient to let him know , his PSA is slightly elevated. I am placing a referral to Urology documented in this encounter Plan of Treatment Upcoming Encounters Date Type Department Care Team (Late st Contact Info) Description 06/21/2025 11:15 AM EDT Office Visit [facility] [address] [place] [address] Emmanuel Mccarthy MD [address] [place] [address] Scheduled Referrals Name Type Priority Associated Diagnoses Orde r Schedule Referral to Urology Outpatient Referral Routine Elevated PSA Expected: 03/27/2025 (Approximate), Expires: 03/27/2026 documented as of this encounter Visit Diagnoses Diagnosis Elevated PSA- Primary Elevated prostate specific antigen (PSA) documented in this encounter Additional Health Concerns Assessment Noted Time PHQ-9 Depression Total Score: 11 025 1:01 PM EDT documented as of this encounter Care Teams Graphite Disk Assembler Relationship Specialty Start Date End Date Emmanuel Mccarthy MD [address] [place] [id number] PCP - General Internal Medicine 07/31/20 documented as of this encounter
== END ==
LOC: HO.CARD 10:55
PROVIDERS: PCP Internal Medicine; Visit Provider Internal Medicine
DX: R06.01 Orthopnea (principal)
CPT/HCPCS: 93306

== ENCOUNTER → 2025-05-01 10:57 | Outpatient (BNV) | payer MEDICARE, MEDICAID, SELFPAY | PROVIDERS: PCP Internal Medicine; Visit Provider Internal Medicine | DX: R06.01 Orthopnea (principal) | CPT/HCPCS: 93306 ==

== ENCOUNTER 2025-05-28 13:58 | Outpatient (AMB) | payer MEDICARE, MEDICAID, SELFPAY ==
--- OUTSIDE RECORDS SUMMARY | 2025-05-24 11:09 | XMS_ITS | Encounter Summary ---
Author Organization [employer] Address [address] [place] [address] Care Team Providers Care Plating Machine Operator Name Role Phone Emmanuel Hyatt MD Primary Care Provi paz Reason for Referral * Imaging (Routine) - Authorized Specialty Diagnoses / Procedures Referred By Earlac t Referred To Contact Radiology Diagnoses Encounter for screening for malignant neoplasm of respiratory organs Nicotine dependence, cigarettes, uncomplicated Procedures CT Lung Screening Lisbet Morse MD [address] [address] Phone: tel: fax: [address] [address] Phone: tel: Referral ID Status Reason Start Date Expiration Date V isits Requested Visits Authorized [id number] Authorized 04/11/2025 04/11/2026 1 1 Reason for Visit * Imaging (Routine) - Authorized Specialty Diagnoses / Procedures Referred By Contac t Referred To Contact Radiology Diagnoses Encounter for screening for malignant neoplasm of respiratory organs Nicotine dependence, cigarettes, uncomplicated Procedures CT Lung Screening Lisbet Morse MD [address] [address] Phone: tel: fax: [address] [address] Phone: tel: Referral ID Status Reason Start Date Expiration Date V isits Requested Visits Authorized [id number] Authorized 04/11/2025 04/11/2026 1 1 Encounter Details Date Type Department Care Team (Latest Contact Info) Description 05/24/2025 11:09 AM EDT - 05/24/2025 11:59 PM EDT Hospital Encounter [facility] CT Scan [address] [place] [address] Encounter for screening for malignant neoplasm of respiratory organs; Nicotine dependence, cigarettes, uncomplicated Discharge Disposition: Home or Self Care Social History Tobacco Use Types Packs/Day Years Used Date Smoking Tobacco: Every Day Cigarettes 1 58.7 Started: 09/05/1966 Smokeless Tobacco: Never Sex and Gender Information Value Date Recorded Sex Assigned at Not on file Legal Sex Male 2:16 AM EST Gender Identity Not on file Sexual Orientation Not on file documented as of this encounter Discharge Disposition Disposition Code Departure Means Destination Home or Self Care documented in this encounter Plan of Treatment Pending Results Name Type Priority Associated Diagnoses Date /Time CT Lung Screening Imaging Routine Encounter for screening for malignant neoplasm of respiratory organs Nicotine dependence, cigarettes, uncomplicated 05/24/2025 11:20 AM EDT Scheduled Orders Name Type Priority Associated Diagnoses Orde r Schedule CT Lung Screening Imaging Routine Encounter for screening for malignant neoplasm of respiratory organs Nicotine dependence, cigarettes, uncomplicated Once for 1 Occurrences starting 05/24/2025 until 05/24/2025 documented as of this encounter Visit Diagnoses Diagnosis Encounter for screening for malignant neoplasm of respiratory organs Nicotine dependence, cigarettes, uncomplicated documented in this encounter Care Teams Plating Machine Operator Relationship Specialty Start Date End Date Emmanuel Hyatt MD [address] [place] [address] PCP - General 09/21/23 documented as of this encounter
--- NOTE | 2025-05-28 14:19 | MHC.OFFVIS ---
Intake Visit Reasons: elevated PSA 5.27 Intake Note: Patient is present for ELEVATED PSA Urology Medication:NONE Antibiotic Allergy:NONE Blood Thinner:NONE TODAY'S PVR:0ML'S Cell Maker Required: No Allergies No Known Allergies (No Known Allergies*) Allergy (Verified 05/28/25 14:50) Medication List - Last Reconciled 05/28/25 by MIRTA Rodrigez- albuterol sulfate 90 mcg/actuation (Ventolin HFA) inhalation budesonide-formoterol 160-4.5 mcg/actuation (Symbicort) inhalation wqmexromjmv-cqfhefrkk-focmxzkh 200-62.5-25 mcg (Trelegy Ellipta) 1 inh inhalation DAILY 30 days omeprazole 20 mg PO DAILY umeclidinium 62.5 mcg/actuation (Incruse Ellipta) 1 inh inhalation DAILY varenicline tartrate (Chantix Starting Month Box) PO PER PKG DIR vit C,J-Mp-wztsf-lutein-zeaxan 250-90-40-1 mg (PreserVision AREDS-2) 1 cap PO BID HPI Comments Details: Ronak is a pleasant 65-year-old male patient of . He has a past medical history of pulmonary nodules, tobacco dependence, asthma-COPD overlap syndrome, and esophagitis. He presents to the office today as a new patient for an elevated PSA. In discussion with the patient today he reports having followed up with his PCP and had blood work done at which time recommendations were made for redraw of blood work as well as referral to Urology for further assessment evaluation. These results were reviewed and communicated with the patient today. PSA: 04/13 5.3, 04/13 4.3 We did discussed at length potential causes of elevated PSA as well as labile PSA. KATE was offered however deferred. He does not believe he has a family history of prostate cancer. He denies any bothersome urinary issues or concerns. He denies urinary urgency, urinary frequency, incontinence, nocturia, hematuria, dysuria, foul smelling urine, changes to urinary stream, flank pain, fever, and or chills. He is happy with his current voiding parameters. We discussed further workup in risks and benefits of these interventions. All questions were answered. He otherwise offers no other issues or concerns at this time. FORMERLY [facility], [facility] Medical History Pulmonary nodules Tobacco dependence Asthma-COPD overlap syndrome COPD (chronic obstructive pulmonary disease) Esophagitis Surgical History Hx of bilateral cataract extraction Family History Paternal Grandfather Colon cancer Social History Household Members: Family Alcohol intake: current Alcohol intake frequency: holidays/special occasions only Patient Tobacco Use Status: Current everyday Tobacco user Cigarette Packs Per Day: 0.5 Cigarettes Per Day: 10 Years Smoked: 30 + Substance Use Type: Marijuana Review of Systems Const All systems reviewed & are unremarkable except as noted in HPI and below Physical Exam Const General: cooperative, healthy appearing, comfortable, no acute distress, well developed, alert and awake Orientation/consciousness: patient oriented x3 Limitations: no limitations HEENT Head: Yes normal to inspection, Yes normocephalic and Yes atraumatic Ears: hearing grossly normal bilaterally Eyes General: appearance normal, both eyes and all related structures Neck Neck: Yes normal visual inspection and Yes trachea midline Chest Chest palpation & inspection: normal inspection of the chest Resp Effort & Inspection: normal respiratory effort and able to speak in complete sentences Cardio Rate: regular rate GI Inspection: Yes normal to inspection General: Yes no CVA tenderness Back/Spine/Pelvis Back: no CVA tenderness Skin General skin exam: no rashes or lesions noted Neuro General: patient oriented x3 Extrem General: Yes normal to inspection Psych Appearance: grossly normal and well kempt Mental Status: mental status grossly normal Speech and movement: Normal speech and movement present and Clear speech present Affect: normal affect Attitude: cooperative Thought process: Normal thought process present Thought content: Normal thought content present Insight: Fair insight present (Psych) Judgement: Fair judgement present (Psych) Office Procedures Post Void Residual Post Residual Void Post Void Residual (PVR): 0 [id number]-[id number] Void Residual by ultrasound Results AMB Urinalysis, Automated UA Leukoctes 15 Gene/uL Last Edit by JOLENE Escamilla on 05/28/25 16:27 UA Nitrite Negative Last Edit by JOLENE Escamilla on 05/28/25 16:27 UA Urobilinogen 0.2 mg/dL [facility]/28[facility]25 16:27 UA Protein 15 mg/dL Last Edit by Sugar Anderson [facility] on 05/28/25 16:27 UA pH 6.0 Last Edit by Sugar Anderson [facility] on 05/28/25 16:27 UA Blood 0 Alexx/uL Last Edit by Sugar Anderson [facility] on 05/28/25 16:27 UA Specific [place] 1.025 Last Edit by Sugar Anderson [facility] on 05/28/25 16:27 UA Ketone Positive Last Edit by Sugar Anderson [facility] on 05/28/25 16:27 UA Bilirubin 1 mg/dL Last Edit by Sugar Anderson [facility] on 05/28/25 16:27 UA Glucose 0 mg/dL Last Edit by Sugar Anderson [facility] on 05/28/25 16:27 Results Reviewed Results Reviewed: Laboratory Last Values Urine pH (Auto) 6.0 05/28/25 16:25 Specific [place] (Auto) 1.025 05/28/25 16:25 Urine Protein (Auto) 15 mg/dL 05/28/25 16:25 Glucose (UA)(Auto) 0 mg/dL 05/28/25 16:25 Urine Ketones (Auto) Positive 05/28/25 16:25 Urine Blood (Auto) 0 Alexx/uL 05/28/25 16:25 Urine Nitrite (Auto) Negative 05/28/25 16:25 Urine Bilirubin (Auto) 1 mg/dL 05/28/25 16:25 Urine Urobilinogen (Auto) 0.2 mg/dL 05/28/25 16:25 Leukocyte Esterase (Auto) 15 Gene/uL 05/28/25 16:25 Assessment & Plan Assessment & Plan (1) Elevated PSA: Code(s): R97.20 - Elevated prostate specific antigen [PSA] Category: Medical Plan In office urinalysis results reviewed with the patient today; as noted above. PVR 0 mL He currently denies any bothersome urinary issues or concerns. He reports be happy with current voiding parameters. Recent PSA results reviewed with the patient today; as noted above. KATE was offered however deferred. We did discussed at length potential causes of elevated/labile PSA and further treatment options and risks and benefits of these treatment options. All questions were answered. Discussed redraw of PSA with no sex the night before, no caffeine morning of, and no heavy lifting 1-2 days prior. Will obtain retroperitoneal ultrasound for further assessment evaluation. Follow-up in 1-3 months with labs and imaging; or sooner with any issues, concerns, and or questions. Orders: Orders AMB Urinalysis Automated Today Z13.9 - Encounter for screening, unspecified US retroperitoneal comp Today R97.20 - Elevated prostate specific antigen [PSA] PSA,Total (Free>4and<10) Today R97.20 - Elevated prostate specific antigen [PSA] Patient Instructions: The patient had an opportunity to ask questions regarding the treatment plan. All questions were answered. Physical exam, labs, and imaging were discussed and reviewed in detail. As well as risks, benefits, and discussion of treatment choices. No major barriers to understanding were identified. The patient expressed understanding and agreement with the above treatment plan. The patient was made aware they should contact our office by phone for worsening of their current condition, the appearance of new symptoms, or with any questions or concerns. Compliance is encouraged with any medications and follow up testing that is ordered. It is a privilege to be allowed the opportunity to participate in? your urological care.? Again, if you have any questions or concerns If you have any questions or concerns please do not hesitate to contact me. The office is [phone]. This note is constructed using voice recognition software. While every effort has been made to ensure accuracy semiautomatic taper operator errors may have been included. Yours sincerely, SALO Rodrigez Coding Level of Care Code New Pt Level 3 (28639) Diagnoses Elevated PSA R97.20 CPT Codes Post Residual Void - PVR CPT Code: 04643-Ueoj Void Residual by ultrasound ([id number])
--- OUTSIDE RECORDS SUMMARY | 2025-05-28 16:21 | XMS_ITS | Clinical Summary ---
Author Organization [employer] Address [address] [place] [address] [address] [place] [address] Care Team Providers Care Marketing Director Assisted Living Name Role Phone Emmanuel Mccarthy MD Primary Care Provide r Allergies No known active allergies Medications Multiple Vitamins-Mineral s (PreserVision AREDS 2) capsule Take 1 capsule by mouth 2 times daily. Take with food. 60 capsule 11 3 Active silver sulfADIAZINE (Silvadene) 1 % cream Apply topically in the morning. 50 g 3 Active naproxen (Naprosyn) 500 MG tabletIndication s:Left elbow pain Take 1 tablet (500 mg) by mouth with breakfast and with evening meal. 60 tablet 3 Active azithromycin (Zithromax Z-Severiano) 250 MG tabletIndication s:Chronic obstructive pulmonary disease with acute exacerbation (CMS/HCC) Take 2 tabs po x 1 day then 1 tab po daily x 4 days 6 tablet 5 Active albuterol (2.5 MG/3ML) 0.083% nebulizer solutionIndicati ons:COPD exacerbation (CMS/HCC) Take 3 mL (2.5 mg) by nebulization every 6 (six) hours if needed for wheezing. 90 mL 3 5 Active Fluticasone-Umec lidin-Vilant (Trelegy Ellipta) 200-62.5-25 MCG/ACT aerosol powderIndication s:Chronic obstructive pulmonary disease with acute exacerbation (CMS/HCC) Inhale 1 puff Once per day. 28 each 3 5 Active albuterol 108 (90 Base) MCG/ACT inhalerIndicatio ns:Chronic obstructive pulmonary disease with acute exacerbation (CMS/HCC) Inhale 2 puffs every 4 (four) hours if needed for wheezing. 18 g 3 5 Active varenicline (Chantix) 1 MG tabletIndication s:Tobacco dependence syndrome TAKE 1 TABLET BY MOUTH TWICE DAILY WITH A FULL GLASS OF WATER 56 tablet 1 5 Active Active Problems Problem Noted Date Diagnosed Date Left elbow pain 09/16/2023 Assessment & Plan (01/04/2024 1:42 PM EDT): Pt with previous c/o left elbow pain for months, reports hx of an injury years ago Exam suggestive of epicondylitis Plan: NSAIDS, Avoid overuse Plain films left elbow showed: No displaced fracture. Recommend follow-up imaging in 10-14 days if fracture is suspected. Assessment & Plan (09/16/2023 1:48 PM EST): Pt with c/o left elbow pain for months, reports hx of an injury years ago Exam suggestive of epicondylitis Plan: NSAIDS, Avoid overuse Plain films left elbow given hx of injury If no improvement may need a steroid injection Ingrown nail of great toe of right foot 09/16/20 Assessment & Plan (09/16/2023 1:47 PM EST): Pt c/o pain right great toe toenail, difficulty wearing shoes as a result, on exam no redness, no discharge Plan: Podiatry consult Abnormality of esophagus 02/09/2023 Assessment & Plan (03/22/2025 9:58 AM EDT): Pt here for a follow up Previous Incidental finding on CT of Chest for lung cancer screening on 12/29/2022 showed: Question wall thickening of the distal thoracic esophagus. Given that he is a smoker he needed an endoscopy to rule out malignancy Seen by GI 06/30/2023 they recommended EGD. Pt missed the appointment. Last visit he was referred back again, He is supposed to call and schedule his appointment at a time that is convenient for him He has yet to do so. Again I discussed with him that it is very important that he undergoes EGD to rule out an esophageal malignancy that could potentially be deadly if not evaluated on time He verbalizes understanding once again. Assessment & Plan (12/21/2024 1:01 PM EDT): Previous Incidental finding on CT of Chest for lung cancer screening on 12/29/2022 showed: Question wall thickening of the distal thoracic esophagus. Given that he is a smoker he needed an endoscopy to rule out malignancy Seen by GI 06/30/2023 they recommended EGD. Pt missed the appointment , Last visit he told me that he would call to reschedule. He has yet to do so Again I discussed with him that it is very important that he undergoes EGD to rule out an esophageal malignancy that could potentially be deadly if not evaluated on time He verbalizes understanding Assessment & Plan (01/04/2024 1:41 PM EDT): Incidental finding on CT of Chest for lung cancer screening on 12/29/2022 showed: Question wall thickening of the distal thoracic esophagus. Given that he is a smoker he needed an endoscopy to rule out malignancy Seen by GI 06/30/2023 they recommended EGD. Pt missed the appointment , Last visit he told me that he would call to reschedule Assessment & Plan (09/16/2023 1:38 PM EST): Incidental finding on CT of Chest for lung cancer screening on 12/29/2022 showed: Question wall thickening of the distal thoracic esophagus. Given that he is a smoker he needed an endoscopy to rule out malignancy Seen by GI 06/30/2023 they recommended EGD. Pt missed the appointment , today he tells me he will call to reschedule Assessment & Plan (02/09/2023 9:21 AM EDT): Incidental finding on CT of Chest for lung cancer screening on 12/29/2022 showed: Question wall thickening of the distal thoracic esophagus. Given that he is a smoker he needs an endoscopy to rule out malignancy Plan: GI referral Chronic obstructive pulmonar y disease with acute exacerbation 12/17/2022 Assessment & Plan (03/22/2025 10:20 AM EDT): Patient is here for a follow up. Unfortunately, he is still smoking CT of chest 11/14/2019 showed Emphysema (mild) and multiple pulmonary nodules. He used to have a [employer] at [facility]. Dr. Campoverde last note from 02/2021, I counseled about smoking cessation again. I have refilled his Incruse Ellipta, Symbicort and Albuterol He used to be under the care of [employer] Dr Rafael Vinson at [facility] . Last visit he told me he wanted to go to [facility] instead. Referral was placed Last PFTs 12/03/2023 showed Mod emphysema with bronchodilator response Repeat PFTs ordered he no showed appointment 02/01/2025. Today c/o cough productive of phlegm and wheezing. Plan: Refill inhalers, Prednisone taper, Z-pack, Chest x-ray Pt awaiting pulmonology appointment F/u if no improvement Assessment & Plan (12/21/2024 1:57 PM EDT): Patient is here for a follow up. Unfortunately, he is still smoking CT of chest 11/14/2019 showed Emphysema (mild) and multiple pulmonary nodules. He used to have a [employer] at [facility]. Dr. Campoverde last note from 02/2021, I counseled about smoking cessation again. I have refilled his Incruse Ellipta, Symbicort and Albuterol He used to be under the care of [employer] Dr Rafael Vinson at [facility] . Today he tells me he would like to go to [facility] Pul[facility] instead Last PFTs 12/03/2023 showed Mod emphysema with bronchodilator response Today with c/o productive cough and wheezing Office Visit on 12/21/2024 Component Date Value Rapid COVID Ag 12/21/2024 Negative QC Media Lot # 12/21/2024 [id number] Lot# Expiration Date 12/21/2024 [id number] Influenza A 12/21/2024 Negative QC Media Lot # 12/21/2024 [id number] Lot# Expiration Date 12/21/2024 [id number] Influenza B 12/21/2024 Negative QC Media Lot # 12/21/2024 [id number] Lot# Expiration Date 12/21/2024 [id number] Plan: Prednisone taper, Z-pack Referred to [facility] Assessment & Plan (01/04/2024 1:40 PM EDT): Patient is here for a follow up. He is still smoking CT of chest 11/14/2019 showed Emphysema (mild) and multiple pulmonary nodules. He used to have a [employer] at [facility]. Dr. Campoverde last note from 02/2021, But it is unclear if he is still seeing him or not pt is a very poor historian I counseled about smoking cessation again. I have refilled his Incruse Ellipta, Symbicort and Albuterol Repeat CT chest 12/29/2022 showed: IMPRESSION: Emphysema. New 4 mm left lower lobe pulmonary nodule. Pulmonary nodules are otherwise stable. According to the UPDATED 2017 Fleischner Society recommendations, the advised follow-up imaging for less than 6 mm solid nodule: Low risk, no chest CT follow-up and high risk, optional chest Had a repeat LDCT 03/31/2023 No new nodules or findings 1 year repeat recommended Under the care of [employer] Dr Rafael Vinson at [facility] Assessment & Plan (09/16/2023 1:33 PM EST): Patient is here for a follow up. He is still smoking half a pack per day CT of chest 11/14/2019 showed Emphysema (mild) and multiple pulmonary nodules. He used to have a [employer] at [facility]. Dr. Campoverde last note from 02/2021, But it is unclear if he is still seeing him or not pt is a very poor historian I counseled about smoking cessation again. I have refilled his Incruse Ellipta, Symbicort and Albuterol Repeat CT chest 12/29/2022 showed: IMPRESSION: Emphysema. New 4 mm left lower lobe pulmonary nodule. Pulmonary nodules are otherwise stable. According to the UPDATED 2017 Fleischner Society recommendations, the advised follow-up imaging for less than 6 mm solid nodule: Low risk, no chest CT follow-up and high risk, optional chest Had a repeat LDCT 03/31/2023 No new nodules or findings 1 year repeat recommended Plan: Will refer to Pul[place]ology today at [facility] Assessment & Plan (02/09/2023 9:18 AM EDT): Patient is here for a follow up.He is still smking half a pack per day and denies any recent exacerbations CT of chest 11/14/2019 showed Emphysema (mild) and multiple pulmonary nodules. He used to have a [employer] at [facility]. Dr. Campoverde last note from 02/2021, But it is unclear if he is still seeing him or not pt is a very poor historian I counseled about smoking cessation again. I have refilled his Incruse Ellipta, Symbicort and Albuterol Repeat CT chest 12/29/2022 showed: IMPRESSION: Emphysema. New 4 mm left lower lobe pulmonary nodule. Pulmonary nodules are otherwise stable. According to the UPDATED 2017 Fleischner Society recommendations, the advised follow-up imaging for less than 6 mm solid nodule: Low risk, no chest CT follow-up and high risk, optional chest CT follow-up in one year. Assessment & Plan (12/17/2022 3:41 PM EDT): Patient is here after a very long hiatus, he tells me he was living in [facility], but then proceeds to tell me he is seeing a Band Aid Machine Operator in [place] but does not know his name and does not recall who sent him there He is still smking half a pack per day and denies any recent exacerbations CT of chest 11/14/2019 showed Emphysema (mild) and multiple pulmonary nodules. He used to have a [employer] at [facility]. Dr. Campoverde last note from 02/2021, But it is unclear if he is still seeing him or not pt is a very poor historian I counseled about smoking cessation again. I contacted our Pharmacy pt last filled Incruse Ellipta, Symbicort and Albuterol in 2021 He is not using Combivent. I have agreed to refill for him. Blood in stool 12/17/2022 Assessment & Plan (02/09/2023 9:19 AM EDT): Pt had a Positive FOBT, Back in 2020 discussed with him the need for colonoscopy to r/o colon malignancy. Pt verbalized understanding and agreed with plan. He was referred to Dr Kennedy, pt missed appointment . This was then rescheduled and pt did not go. Today he tells me he does not want to do it, rather . CBC in November 2022 was normal Cologuard 01/04/2023 was NEGATIVE will repeat in 3 years Assessment & Plan (12/17/2022 2:46 PM EDT): Pt had a Positive FOBT, Back in 2020 discussed with him the need for colonoscopy to r/o colon malignancy. Pt verbalized understanding and agreed with plan. He was referred to Dr Kennedy, pt missed appointment . This was then rescheduled and pt did not go. Today he tells me he does not want to do it, rather . I have asked if he would be willing to do the Cologuard and he agreed Preventative health care 12/17/2022 Assessment & Plan (03/22/2025 9:59 AM EDT): PSA 12/18/2022: Normal, last visit we ordered a repeat, he has yet to do it, ordered again. Colonoscopy: Refused in the past, Stool cards brought in 03/21/2021 positive, Cologuard 01/04/2023 negative He has been referred to GI multiple times pt keeps not going Assessment & Plan (12/21/2024 1:02 PM EDT): PSA 12/18/2022: Normal Colonoscopy: Refused in the past, Stool cards brought in 03/21/2021 positive, Cologuard 01/04/2023 negative He has been referred to GI multiple times pt keeps not going Assessment & Plan (09/16/2023 1:26 PM EST): Colonoscopy: Refused in the past, Stool cards brought in 03/21/2021 positive, He has been referred to GI multiple times pt keeps not going Cologuard 01/04/2023 negative Assessment & Plan (12/17/2022 2:46 PM EDT): Colonoscopy: Refused in the past, Stool cards brought in 03/21/2021 positive, He has been referred to GI multiple times pt keeps not going Agreed to Cologuard Pulmonary nodules 12/17/2022 Assessment & Plan (12/21/2024 12:58 PM EDT): Chest CT 12/29/2022 showed: IMPRESSION: Emphysema. New 4 mm left lower lobe pulmonary nodule. Pulmonary nodules are otherwise stable. According to the UPDATED 2017 Fleischner Society recommendations, the advised follow-up imaging for less than 6 mm solid nodule: Low risk, no chest CT follow-up and high risk, optional chest CT follow-up in one year. Repeat LDCT 03/31/2023 No new nodules or findings 1 year repeat recommended Most recent 05/19/2024 at [facility]: [facility] 2 1 year follow up recommended Assessment & Plan (09/16/2023 1:25 PM EST): Chest CT 12/29/2022 showed: IMPRESSION: Emphysema. New 4 mm left lower lobe pulmonary nodule. Pulmonary nodules are otherwise stable. According to the UPDATED 2017 Fleischner Society recommendations, the advised follow-up imaging for less than 6 mm solid nodule: Low risk, no chest CT follow-up and high risk, optional chest CT follow-up in one year. Had a repeat LDCT 03/31/2023 No new nodules or findings 1 year repeat recommended Assessment & Plan (02/09/2023 9:18 AM EDT): Chest CT 12/29/2022 showed: IMPRESSION: Emphysema. New 4 mm left lower lobe pulmonary nodule. Pulmonary nodules are otherwise stable. According to the UPDATED 2017 Fleischner Society recommendations, the advised follow-up imaging for less than 6 mm solid nodule: Low risk, no chest CT follow-up and high risk, optional chest CT follow-up in one year. Will repeat in 1 year Assessment & Plan (12/17/2022 3:42 PM EDT): Will schedule for a follow up Chest CT he is high risk for pulmonary malignancy Chronic low back pain 09/07/2012 Assessment & Plan (12/17/2022 2:32 PM EDT): Pt here for a f/u Previous work up included an MRI of his LS spine back in 01/24/07 showed anterior disc bulge L3-S1 with no herniation or stenosis. He has no radicular symptoms. Previous PCP ( Dr Mijares ) was prescribing naproxen 500mg bid and acetaminophen prn. Pt went to PT twice but was discharged due to 2 no shows Plan films 04/17/2021 showed: 1. Slight anterior wedge compression deformities of T11, T10 and T9 vertebrae unchanged since chest x-ray March 25, 2017. No acute abnormality. 2. Mild degenerative spondylosis of the spine. Back in 2020 pt was referred to [facility] for consideration of epidural injections. Tobacco dependence syndrome 09/07/2012 Assessment & Plan (12/21/2024 1:13 PM EDT): Patient started to smoke again Interested in Chantix Assessment & Plan (09/16/2023 1:37 PM EST): Pt tells me he quit smoking Assessment & Plan (12/17/2022 3:42 PM EDT): Smoking half a pack per day, Interested in Chantix he has used in the past with success, knows risks of increase depression, notes to stop if he is to experience Suicidal thoughts or ideation or feels depressed Resolved Problems Problem Noted Date Diagnosed Date Resolved Date Sore throat 01/04/2024 03/22/2025 Assessment & Plan (01/04/2024 2:03 PM EDT): Pt with c/o mild sore throat, dry cough, generalized malaise Rapid strep, Covid and Flu Plan: Supportive measures: Increase fluids, tylenol PRN F/u if c/o productive cough, sob or difficulty breathing Encounters Date Type Department Care Team Description 04/11/2025 Refill [facility] [address] [place] [id number] Denise Merino MD Tobacco dependence syndrome 03/27/2025 Results Follow-Up [address] [address] Emmanuel Mccarthy MD PSA, Screen, Comprehensive Metabolic Panel 03/22/2025 10:00 AM EDT Office Visit [facility] [address] [place] [id number] Emmanuel Mccarthy MD Chronic obstructive pulmonary disease with acute exacerbation (CMS/HCC) (Primary Dx); Abnormality of esophagus; Preventative health care; COPD exacerbation (CMS/HCC) 03/22/2025 Telephone [facility] [address] [facility] [place] [address] Emmanuel Mccarthy MD CRITICAL LAB 03/22/2025 Telephone [facility] [address] [place] [address] Emmanuel Mccarthy MD Appointment Confirmation 03/22/2025 Travel 03/21/2025 Telephone [facility] [address] [place] [address] Emmanuel Mccarthy MD CHART PREP from Last 3 Months Immunizations Immunization Administration Dates Next Due Influenza injectable quadriv alent IIV4 with preservative 07/30/2015 TD (adult), 2 Lf tetanus tox oid, preservative free, adsorbed 08/26/2000 Tdap 08/02/2023,09/07/2012 Family History Medical History Relation Name Comments Lung cancer Father Glaucoma Paternal Grandfather Diabetes Paternal Grandmother Glaucoma Paternal Grandmother Relation Name Status Comments Father Paternal Grandfather Paternal Grandmother Social History Tobacco Use Types Packs/Day Years Used Date Smoking Tobacco: Some Days Cigarettes Passive Smoke Exposure: Current Smokeless Tobacco: Never Tobacco Cessation:Ready to Q uit: Not Asked; Counseling Given: Not Answered Alcohol Use Standard Drinks/Week Comments Not Currently [...] Orientation Straight 07/20/2022 10 :16 AM EDT Last Filed Vital Signs Vital Sign Reading Time Taken Comments Blood Pressure 130/80 03/22/2025 9:58 AM EDT Pulse 95 03/22/2025 9:58 AM EDT Temperature 36.2 C (97.2 F) 03/22/2025 9:58 AM EDT Respiratory Rate 24 03/22/2025 9:58 AM EDT Oxygen Saturation 98% 03/22/2025 9:58 AM EDT Inhaled Oxygen Concentration - - Weight 69.6 kg (153 lb 6.4 oz) 03/22/2025 9:58 A M EDT Height 162.6 cm (5' 4 ) 03/22/2025 9:58 AM EDT Body Mass Index 26.33 03/22/2025 9:58 AM EDT Plan of Treatment Upcoming Encounters Date Type Department Care Team (Late st Contact Info) Description 06/21/2025 11:15 AM EDT Office Visit [facility] [address] [place], [place] [phone] Emmanuel Mccarthy MD [address] [place] [address] Health Maintenance Due Date Last Done Comments CT Colonography 1959 Colonoscopy 1959 FIT 1959 FOBT 1959 Sigmoidoscopy 1959 Pneumococcal Vaccine: 50+ Years (1 of 2 - PCV) 1978 Zoster Vaccines (1 of 2) 2009 RSV Patients and Patients Aged 60 years or older (1 - Risk 60-74 years 1-dose series) 2019 COVID-19 Vaccine (3 - 2024-2 6 season) 2025 12/31/2020, 12/03/2020 Influenza Vaccine (#1) 2025 07/30/2015 Depression Monitoring 06/22/2025 12/21/2024 , 12/21/2024 Alcohol/Substance Use Screening 12/21/2025 12/21/2024 SDOH Screening 12/21/2025 12/21/2024 Colorectal Cancer Screening 02/09/2026 FIT DNA/Cologuard 02/09/2026 02/09/2023 Tobacco Screening 03/22/2026 03/22/2025 Lipid Panel 12/19/2027 12/18/2022, 01/28/2021 DTaP/Tdap/Td Vaccines (3 - T d or Tdap) 08/02/2033 08/02/2023, 09/07/2012, 08/26/2000 Hepatitis C Screening Completed 12/18/2022 HIB Vaccines Aged Out No longer eligi ble based on patient's age to complete this topic HPV Vaccines Aged Out No longer eligi ble based on patient's age to complete this topic Hepatitis A Vaccines Aged Out No long er eligible based on patient's age to complete this topic Hepatitis B Vaccines Aged Out No long er eligible based on patient's age to complete this topic IPV Vaccines Aged Out No longer eligi ble based on patient's age to complete this topic Meningococcal B Vaccine Aged Out No l onger eligible based on patient's age to complete this topic Meningococcal Vaccine Aged Out No candice hair eligible based on patient's age to complete this topic RSV under 20 months Aged Out No longe r eligible based on patient's age to complete this topic Rotavirus Vaccines Aged Out No longer eligible based on patient's age to complete this topic Procedures Procedure Name Priority Date/Time Associated Diagnosis Comments FERRITIN Routine 03/26/2025 4:08 PM EDT Chronic obstructive pulmonary disease with acute exacerbation (CMS/HCC) IRON AND TOTAL IRON BINDING CAPACITY Routine 03/26/2025 4:08 PM EDT Chronic obstructive pulmonary disease with acute exacerbation (CMS/HCC) CBC Routine 03/26/2025 4:08 PM EDT Chronic obstructive pulmonary disease with acute exacerbation (CMS/HCC) PSA, SCREEN Routine 03/26/2025 1:50 PM EDT Chronic obstructive pulmonary disease with acute exacerbation (CMS/HCC) Preventative health care COMPREHENSIVE METABOLIC PANEL Routine 03/26/2025 1:50 PM EDT Preventative health care COMPREHENSIVE METABOLIC PANEL Routine 03/22/2025 11:00 AM EDT Chronic obstructive pulmonary disease with acute exacerbation (CMS/HCC) PSA, SCREEN Routine 03/22/2025 11:00 AM EDT Preventative health care XR CHEST 2 VIEWS Routine 03/22/2025 10:4 8 AM EDT Chronic obstructive pulmonary disease with acute exacerbation (CMS/HCC) HEPATITIS C AB W/REFL TO HCV RNA, QN, PCR Routine 12/18/2022 2:07 PM EDT Preventative health care LIPID PANEL WITH REFLEX TO DIRECT LDL Routine 12/18/2022 2:07 PM EDT Pulmonary emphysema, unspecified emphysema type (CMS/HCC) from Last 3 Months or Most Recently Relevant to Health Maintenance Results * Iron And Total Iron Binding Capacity (03/26/2025 4:08 PM EDT) Iron 72 45 - 160 mcg/dL [facility] Total Iron Binding Capacity 326 228 - 428 mcg/dL [facility] Percent Iron Saturation 22 15 - 50 % [facility] Unsaturated Iron Binding 254 ug/dL [facility] 03/26/2025 4:08 PM EDT 03/26/2025 4:10 PM EDT us Generic External Data Provider LAB BLOOD ORDERAB LES Final Result Performing Organization Address City/[facility]/ZIP Co de Phone Number [facility] [address] [place] [phone] * (ABNORMAL) CBC (03/26/2025 4:08 PM EDT) White Blood Count 4.7(L) 4.8 - 10.8 X10*3/uL [facility] Red Blood Count 5.29 4.60 - 5.80 X10*6/uL [facility] Hemoglobin 15.8 14.0 - 18.0 g/dl [facility] Hematocrit 45.6 42.0 - 52.0 % [facility] Mean Corpuscular Volume 86.2 80.0 - 98.0 fL [facility] Mean Corpuscular Hemoglobin 29.9 27.0 - 33.0 pg [facility] Mean Corpuscular HGB Conc 34.6 31.0 - 36.0 g/dl [facility] Red Cell Distribution Width 13.6 11.0 - 16.0 % [facility] Platelet Count 310 160 - 400 X10*3/uL [facility] Mean Platelet Volume 8.7(L) 9.4 - 12.4 fL [facility] NRBC Pct Auto 0.0 0.0 - 0.2 /100WBC [facility] NRBC Abs Auto 0.000 0.0 - 0.012 X10*3/uL [facility] 03/26/2025 4:08 PM EDT 03/26/2025 4:10 PM EDT us Generic External Data Provider LAB BLOOD ORDERAB LES Final Result Performing Organization Address City/[facility]/ZIP Co de Phone Number [facility] [address] [place] [phone] * Ferritin (03/26/2025 4:08 PM EDT) Pathologist [facility] Ferritin 40 20 - 250 ng/mL [facility] 03/26/2025 4:08 PM EDT 03/26/2025 4:10 PM EDT us Generic External Data Provider LAB BLOOD ORDERAB LES Final Result Performing Organization Address City/[facility]/ZIP Co de Phone Number [facility] [facility] [address] [place] [phone] * (ABNORMAL) PSA, Screen (03/26/2025 1:50 PM EDT) Only the most recent of2 resultswithin the time period is included. [facility] PSA, Total 4.29(H) <0.05 - 4.0 ng/mL [facility] Comment:PSA methodology: Abb tatyana Lo i ChemiluminescentMicroparticle Immunoassay (CMIA) Blood Venous blood specimen / Unknown 03/26/2025 1:50 PM EDT 03/26/2025 5:08 PM EDT us Emmanuel Cash MD LAB BLOOD ORDERABLES Final Result Performing Organization Address [facility] Co de Phone Number [facility] [address] [place] [phone] * (ABNORMAL) Comprehensive Metabolic Panel (03/26/2025 1:50 PM EDT) Only the most recent of2 resultswithin the time period is included. [facility] Sodium 138 135 - 145 mmol/L [facility] Potassium 4.1 3.3 - 5.1 mmol/L [facility] Chloride 105 96 - 108 mmol/L [facility] Carbon Dioxide 27 22 - 29 mmol/L [facility] Anion Gap 10(L) 12 - 20 [facility] Urea Nitrogen (BUN) 15 9 - 16 mg/dL [facility] Creatinine, Serum 0.99 0.5 - 1.4 mg/dL [facility] Estimated Glomerular Filt Rate >60 [facility] Comment:Chronic Kidney Disea se: Estimated GFR < 60 mL/min/1.44r3Sacmnl Kidney Disease: Estimated GFR < 15 mL/min/1.73m2 Glucose 150(H) 60 - 115 mg/dL [facility] Calcium 8.9 8.4 - 10.2 mg/dL [facility] Bilirubin, Total 0.3 0.0 - 1.0 mg/dL [facility] Aspartate Amino Transferase 25 5 - 37 U/L [facility] Alanine Aminotransferase 25 0 - 40 U/L [facility] Total Protein 7.0 6.5 - 8.0 g/dL [facility] Albumin Level 4.2 3.5 - 5.0 g/dL [facility] Alkaline Phosphatase 96 39 - 117 U/L [facility] Blood Venous blood specimen / Unknown 03/26/2025 1:50 PM EDT 03/26/2025 5:08 PM EDT us Emmanuel Cash MD LAB BLOOD ORDERABLES Final Result Performing Organization Address City/State/[facility] Co de Phone Number [facility] [address] [place] [address] [phone] * XR Chest 2 Views (03/22/2025 10:48 AM EDT) Anatomical Region Laterality Modality Chest Radiographic Ariana ging 03/22/2025 10:4 8 AM EDT Narrative 03/22/2025 11:43 AM EDT [address] [address] XRay Report Signed Patient: Ronak Gómez MR#: [id number] [birth year] : 1960 Acct:[id number] Age/Sex: 64 / M ADM Date: 03/22/25 Loc: HO.HHCX Attending Dr: Emmanuel Hyatt MD Ordering Physician: Emmanuel Hyatt MD Date of Service: 03/22/25 Procedure(s): XR chest 2V Accession Number(s): [id number] cc: Emmanuel Hyatt MD EXAMINATION: XR CHEST CLINICAL INFORMATION: cough, sob COMPARISON: August 2023 TECHNIQUE: 2 views of the chest were obtained. FINDINGS: Lungs remain hyperinflated. Lungs are clear. Heart and mediastinal contours are within normal limits. XR/XR chest 2V IMPRESSION: Hyperinflation/air trapping. Electronically signed by: Tung Keenan MD 03/22/2025 11:40 AM EDT RP Dictated By: Tung Keenan MD Signed By: <Electronically signed by Tung Keenan MD in OV> 03/22/25 1140 DD/ 1048 TD/TT: 03/22/25 1136 Technical Support Specialist: Procedure Note Donotuseinterpreter, Image - 03/22/2025 [place] [address] XRay Report Signed Patient: Eleni Gómez#: [id number] 03 : 1960cct:[id number] Age/Sex: 64 / MADM Date: 03/22/25 Loc: HO.HHCX Attending Dr: Emmanuel Hyatt MD Ordering Physician: Emmanuel Hyatt MD Date of Service: 03/22/25 Procedure(s): XR chest 2V Accession Number(s): [id number] cc: Emmanuel Hyatt MD EXAMINATION: XR CHEST CLINICAL INFORMATION: cough, sob COMPARISON: August 2023 TECHNIQUE: 2 views of the chest were obtained. FINDINGS: Lungs remain hyperinflated. Lungs are clear. Heart and mediastinal contours are within normal limits. XR/XR chest 2V IMPRESSION: Hyperinflation/air trapping. Electronically signed by: Tung Keenan MD 03/22/2025 11:40 AM EDT RP Dictated By: Tung Keenan MD Signed By: <Electronically signed by Tung Keenan MD in OV> 03/22/25 1140 DD/ 1048 TD/TT: 03/22/25 1136 Technical Support Specialist: Emmanuel Cash MD IMG XR PROCEDURES Juve dwight Result - Final * (ABNORMAL) Lipid Panel with Reflex to Direct LDL (12/18/2022 2:07 PM EDT) Cholesterol, Total 209(H) <200 mg/dL [facility] HDL Cholesterol 55 > OR = 40 mg/dL [facility] Triglycerides 96 <150 mg/dL [facility] LDL Cholesterol 134(H) mg/dL (calc) [facility] Comment: Reference range: <100 Desirable range <100 mg/dL for primary prevention; <70 mg/dL for patients with CHD or diabetic patients with > or = 2 CHD risk factors. LDL-C is now calculated using the Josh-Rose calculation, which is a validated novel method providing better accuracy than the Friedewald equation in the estimation of LDL-C. Josh SS et al. KATIANA. 2013;310(19): 8526-4309 (http://education.[employer]/faq/DZO019) Chol/HDLC Ratio 3.8 <5.0 (calc) [facility] Non-HDL Cholesterol 154(H) <130 mg/dL (calc) [facility] Comment: For patients with diabetes plus 1 major ASCVD risk factor, treating to a non-HDL-C goal of <100 mg/dL (LDL-C of <70 mg/dL) is considered a therapeutic option. 12/18/2022 2:07 PM EDT 12/18/2022 2:07 PM EDT Narrative [facility] - 12/19/2022 9:22 AM EDT FASTING:YES FASTING: YES Emmanuel Cash MD LAB BLOOD ORDERABLES Final Result [facility] [address], [place] [address] [facility] [address] [place] [address] * Hepatitis C Antibody with Reflex to HCV, RNA, Quantitative, Real-Time PCR (12/18/2022 2:07 PM EDT) Hepatitis C Antibody NON-REACT IAIN NON-REACT IAIN [facility] Index 0.03 <1.00 [facility] Comment: HCV antibody was non-reactive. There is no laboratory evidence of HCV infection. In most cases, no further action is required. However, if recent HCV exposure is suspected, a test for HCV RNA (test code 57985) is suggested. For additional information please refer to http://education.[employer]/faq/GZH24z7 (This link is being provided for informational/ educational purposes only.) Blood Venous blood specimen / Unknown 12/18/2022 2:07 PM EDT 12/18/2022 2:07 PM EDT Narrative [facility] - 12/19/2022 9:22 AM EDT FASTING:YES FASTING: YES Emmanuel Cash MD LAB BLOOD ORDERABLES Final Result [facility] [address], [place] [address] [facility] [address] [place] [address] from Last 3 Months or Most Recently Relevant to Health Maintenance Insurance [facility] [employer] MEDIC[employer] Care Teams Marketing Director Assisted Living Relationship Specialty Start Date End Date Emmanuel Mccarthy MD [address] [place] [address] PCP - General Internal Medicine 07/31/20
--- OUTSIDE RECORDS SUMMARY | 2025-05-28 16:21 | XMS_ITS | Encounter Summary ---
Author Organization [employer] Address [address] [facility] 7t [place] [address] Care Team Providers Care Veneer Sample Maker Name Role Phone Emmanuel Mccarthy MD Primary Care Provide r Encounter Details Date Type Department Care Team (Latest Contact Info) Description 06/26/2019 Abstract [facility] CONVERSIONS Dental, Provider, DDS Social History Tobacco Use Types Packs/Day Years Used Date Smoking Tobacco: Never Assessed Sex and Gender Information Value Date Recorded Sex Assigned at Male 07/20/2022 10:16 AM EDT Legal Sex Male 10:16 AM EDT Gender Identity Male 07/20/2022 10:16 AM EDT Sexual Orientation Straight 07/20/2022 10 :16 AM EDT documented as of this encounter Plan of Treatment Upcoming Encounters Date Type Department Care Team (Late st Contact Info) Description 06/21/2025 11:15 AM EDT Office Visit [facility] MEDICINE [address] [place] [phone] Emmanuel Mccarthy MD [address] [place] [phone] documented as of this encounter Visit Diagnoses Not on filedocumented in this encounter Care Teams Veneer Sample Maker Relationship Specialty Start Date End Date Emmanuel Mccarthy MD [address] [place] [address] [phone] PCP - General Internal Medicine 07/31/20 documented as of this encounter
--- OUTSIDE RECORDS SUMMARY | 2025-05-28 16:21 | XMS_ITS | Encounter Summary ---
Author Organization [employer] Address [address] [facility] 7t [place] [address] Care Team Providers Care Crop Insurance Claims Adjuster Name Role Phone Emmanuel Mccarthy MD Primary Care Provide r Reason for Visit * Reason Comments Med Refill Encounter Details Date Type Department Care Team ([facility] st Contact Info) Description 09/16/2023 Refill [facility] [address] [place] [address] [phone] Samina Correa MD [address] [place], [place] [phone] COPD exacerbation (CMS/HCC) Social History Tobacco Use Types Packs/Day Years Used Date Smoking Tobacco: Former Cigarettes Passive Smoke Exposure: Past Smokeless Tobacco: Never Alcohol Use Standard Drinks/Week Comments Not Currently 0 (1 standard drink = 0.6 oz pur e alcohol) Depression Answer Date Recorded Patient Health Questionnaire-9 Score 0 12/17/2022 Housing Stability Answer Date Recorded What is your housing situation today? I have housing today, but I am worried about losing housing in the future 07/06/[address] you li ve. Do you have problems with any of the following? None of the above 07/06/2023 Food Insecurity Answer Date Recorded Within the past 12 months, y ou worried that your food would run out before you got money to buy more: Never True 07/06/2023 Within the past 12 months,th e food you bought just didn't last and you didn't have enough money to get more: Never True Transportation Answer Date Recorded In the past 12 months, has l ack of transportation kept you from medical appts, meetings, work or from getting things needed for daily living? No 07/06/2023 Utilities Answer Date Recorded In the past 12 months, has t he electric, gas, oil or water company threatened to shut off services in your home? No 07/06/2023 Depression Answer Date Recorded Patient Health Questionnaire-2 Score 0 12/17/2022 Sex and Gender Information Value Date Recorded Sex Assigned at Male 07/20/2022 10:16 AM EDT Legal Sex Male 10:16 AM EDT Gender Identity Male 07/20/2022 10:16 AM EDT Sexual Orientation Straight 07/20/2022 10 :16 AM EDT documented as of this encounter Plan of Treatment Upcoming Encounters Date Type Department Care Team (Late st Contact Info) Description 06/21/2025 11:15 AM EDT Office Visit [facility] MEDICINE [address] [place] [address] Emmanuel Mccarthy MD [address] [place] [address] documented as of this encounter Visit Diagnoses Diagnosis COPD exacerbation ([facility]) Obstructive chronic bronchitis with exacerbation documented in this encounter Additional Health Concerns Assessment Noted Time PHQ-9 Depression Total Score: 0 12/18/19 23 2:25 PM EDT documented as of this encounter Care Teams Crop Insurance Claims Adjuster Relationship Specialty Start Date End Date Emmanuel Mccarthy MD [address] [place] [address] PCP - General Internal Medicine 07/31/20 documented as of this encounter
--- OUTSIDE RECORDS SUMMARY | 2025-05-28 16:21 | XMS_ITS | Clinical Summary ---
Author Organization [facility] [address] [facility] Address [address] [place] [address] Phone Care Team Providers Care Elevated Motorman Name Role Phone Emmanuel Hyatt MD Primary Care Provi paz Encounters Date Type Department Care Team Description 05/24/2025 11:09 AM EDT - 05/24/2025 11:59 PM EDT Hospital Encounter [facility] CT Scan [address] [place] [address] Encounter for screening for malignant neoplasm of respiratory organs; Nicotine dependence, cigarettes, uncomplicated Discharge Disposition: Home or Self Care 04/27/2025 Telephone Lung Screening Program - [address] [place] [address] Audrey Mattson MA from Last 3 Months Surgical History Surgery Date Site/Laterality Comments OTHER SURGICAL HISTORY 2007 Bilateral PROCEDURE: GA XCAPSL CTRC RMVL INSJ IO LENS PROSTH CPLX WO ECP Medical History Medical History Date Comments Back pain DX:Back pain COPD (chronic obstructive pu lmonary disease) (CMS/HCC V24, CMS/HCC V28) DX:COPD (chronic o bstructive pulmonary disease) ([facility]) Pulmonary nodules DX:Pulmonary n odules Social History Tobacco Use Types Packs/Day Years Used Date Smoking Tobacco: Every Day Cigarettes 1 58.7 Started: 09/05/1966 Smokeless Tobacco: Never Sex and Gender Information Value Date Recorded Sex Assigned at Not on file Legal Sex Male 2:16 AM EST Gender Identity Not on file Sexual Orientation Not on file Obstetrics History Last Filed Vital Signs Vital Sign Reading Time Taken Comments Blood Pressure 107/71 12/02/2021 2:26 PM EDT Sit ting L Arm Pulse 87 12/02/2021 2:26 PM EDT Temperature - - Respiratory Rate - - Oxygen Saturation - - Inhaled Oxygen Concentration - - Weight 64 kg (141 lb) 10/06/2023 1:28 PM EST Height 162.6 cm (5' 4 ) 10/06/2023 1:28 PM EST Body Mass Index 24.2 10/06/2023 1:28 PM EST Plan of Treatment Health Maintenance Due Date Last Done Comments Pneumococcal Vaccine: 50+ Years (1 of 2 - PCV) 1978 Zoster Vaccines (1 of 2) 2009 RSV Immunization Adult Patients (1 - Risk 60-74 years 1-dose series) 2019 Abdominal Aortic Aneurysm (AAA) Screen 08/23/2022 Cholesterol Screening (Lipid Panel) 08/23/2022 Colorectal Cancer Screening: Colonoscopy 08/23/2022 Medicare Annual Wellness Visit 08/23/2022 Social Influencers of Health Screening 08/23/2022 Falls Risk Assessment 2024 Depression Screening 09/20/2024 Lung Cancer Screening (Low Dose CT) 05/19/2025 05/19/2024, 04/01/2023, 12/08/2021, Additional history exists COVID-19 Vaccine (3 - season) 2025 12/31/2020, 12/03/2020 Influenza Vaccine (#1) 2025 07/30/2015 DTaP,Tdap,and Td Vaccines (4 - Td or Tdap) 08/02/2033 08/02/2023, 09/07/2012, 08/26/2000 Hepatitis [...] on patient's age to complete this topic MMR Vaccines Aged Out No longer eligi ble based on patient's age to complete this topic Meningococcal ACWY Vaccine Aged Out N o longer eligible based on patient's age to complete this topic Meningococcal B Vaccine Aged Out No l onger eligible based on patient's age to complete this topic RSV Immunization Patients Under 20 months Aged Out No longer eligible based on patient's age to complete this topic Varicella Vaccines Aged Out No longer eligible based on patient's age to complete this topic Procedures Procedure Name Priority Date/Time Associated Diagnosis Comments CT LUNG SCREENING LOW DOSE Routine 05/19/2024 1:16 PM EDT Nicotine dependence, cigarettes, uncomplicated from Last 3 Months or Most Recently Relevant to Health Maintenance Results * CT LUNG SCREENING LOW DOSE (05/19/2024 1:16 PM EDT) Anatomical Region Laterality Modality Computed Tomogra phy 05/19/2024 11:0 7 AM EDT Narrative 05/19/2024 1:16 PM EDT [facility] Diagnostic Imaging Department [address] [place] [phone] Patient: OSCAR LEAHYBERTO /Age/Sex: 1960 - 64 - M Unit#: [id number] Location/Status: [facility] Mnemonic/Ordering Site: [facility] Ordering Physician: LISBET CALVILLO MD CT Lung Screening Low Dose - 05/19/24 - 1113 Report Status:Signed Chest CT, 05/19/2024 12:35 PM. TECHNIQUE: Low-dose CT of the chest without intravenous contrast administration. Coronal and sagittal reformats and MIP reconstructions were created. Dose length product: 125 mGy-cm. HISTORY: CURRENT SMOKER, 56 [address]INT COMPARISON: 03/31/2023. FINDINGS: Lungs/pleura: Normal caliber airways. No endobronchial nodule. Moderate centrilobular emphysema. A 5 mm left lower lobe nodule, series 3 image 131 is stable. Small nodules along the left major fissure, series 3 image 57, also unchanged. Stable 3 mm right upper lobe nodule, image 108. A previously noted stellate lesion in the left upper lobe measuring 5 mm, image 51, is unchanged. There are a few other scattered nodules measuring 2 mm or less. No new suspicious nodule. No pleural effusion or pneumothorax. Mediastinum/chelita: No mediastinal mass or lymphadenopathy. No appreciable hilar lymphadenopathy on limited noncontrast evaluation. Vasculature: Mild atherosclerotic calcifications. Normal caliber pulmonary arteries. Cardiac: Normal heart size. Mild coronary artery calcifications. Chest wall: No mass or lymphadenopathy. Limited abdomen: Scattered calcified granulomas in the liver. Calcified granuloma in the inferior spleen. Bones: Degenerative changes of the spine. IMPRESSION: Lung RADS 2. Guidelines recommend repeat low-dose screening CT in 12 months. Dictating Physician: JAMAL DELCID MD Electronically Signed by: JAMAL DELCID MD Dic Date/Time: 05/19/24 1235 Sign date/Time: 05/19/24 1316 Procedure Note Jamal Delcid MD - 07/05/2024 [facility] Diagnostic Imaging Department [address] [place] [address] Patient: LEAHYKRISTINA./Age/Sex: 1960 - 64 - M Unit#: [id number] Location/Status: SPDICATLS/REG CLI Mnemonic/Ordering Site: [facility] Ordering Physician: LISBET CALVILLO MD CT Lung Screening Low Dose - 05/19/24 - 1113 Report Status:Signed Chest CT, 05/19/2024 12:35 PM. TECHNIQUE: Low-dose CT of the chest without intravenous contrast administration. Coronal and sagittal reformats and MIP reconstructionswere created. Dose length product: 125 mGy-cm. HISTORY: CURRENT SMOKER, 56 CLINT COMPARISON: 03/31/2023. FINDINGS: Lungs/pleura: Normal caliber airways. No endobronchial nodule.Moderate centrilobular emphysema. A 5 mm left lower lobe nodule, series 3 [id number] is stable. Small nodules along the left major fissure, series 3 image 57,also unchanged. Stable 3 mm right upper lobe nodule, image 108. A previouslynoted stellate lesion in the left upper lobe measuring 5 mm, image 51, isunchanged. There are a few other scattered nodules measuring 2 mm or less. No new suspicious nodule. No pleural effusion or pneumothorax. Mediastinum/chelita: No mediastinal mass or lymphadenopathy. No appreciablehilar lymphadenopathy on limited noncontrast evaluation. Vasculature: Mild atherosclerotic calcifications. Normal caliberpulmonary arteries. Cardiac: Normal heart size. Mild coronary artery calcifications. Chest wall: No mass or lymphadenopathy. Limited abdomen: Scattered calcified granulomas in the liver. Calcified granuloma in the inferior spleen. Bones: Degenerative changes of the spine. IMPRESSION: Lung RADS 2. Guidelines recommend repeat low-dose screening CT in 12months. Dictating Physician: JAMAL DELCID MD Electronically Signed by: JAMAL DELCID MD Dic Date/Time: 05/19/24 1235 Sign date/Time: 05/19/24 1316 Lisbet Calvillo MD IM CT PROCEDURES Final Result from Last 3 Months or Most Recently Relevant to Health Maintenance Insurance [place] [id number] MEDICAID - [place] MEDICARE Care Teams Elevated Motorman Relationship Specialty Start Date End Date Emmanuel Hyatt MD [address] [place] [address] [place] [address] PCP - General 09/21/23
== END 2025-05-28 14:53 | disposition home or self-care (01) ==
LOC: HO.HUSH 13:59
PROVIDERS: PCP Internal Medicine; Visit Provider Nurse Practitioner Family
DX: Z13.9 Encounter for screening, unspecified (principal); R97.20 Elevated prostate specific antigen [PSA]
CPT/HCPCS: 99203

== ENCOUNTER → 2025-05-28 13:58 | Outpatient (BNVA) | payer MEDICARE, MEDICAID, SELFPAY | PROVIDERS: PCP Internal Medicine; Visit Provider Nurse Practitioner Family | DX: R97.20 Elevated prostate specific antigen [PSA] (principal); Z13.9 Encounter for screening, unspecified | CPT/HCPCS: 51798; 81003; 99202 ==

== ENCOUNTER 2025-07-13 14:26 | Outpatient (REF) | payer MEDICARE, MEDICAID, SELFPAY ==
--- OUTSIDE RECORDS SUMMARY | 2025-07-13 16:20 | XMS_ITS | Encounter Summary ---
Author Organization [facility] [facility] [employer] Address [address] [facility] 7[address] [place] [address] Care Team Providers Care Salad Bar Clerk Name Role Phone Emmanuel Mccarthy MD Primary Care Provide r Reason for Visit * Reason Comments Med Refill Encounter Details Date Type Department Care Team ([facility] st Contact Info) Description 09/16/2023 Refill [facility] [address] [place] [address] [phone] Samina Correa MD [address] [place], [place] [phone] COPD exacerbation (CMS/HCC) Social History Tobacco Use [...] as of this encounter Plan of Treatment Not on file documented as of this encounter Visit Diagnoses Diagnosis COPD exacerbation (CMS/HCC) (HCC) Obstructive chronic bronchitis with exacerbation documented in this encounter Additional Health Concerns Assessment Noted Time PHQ-9 Depression Total Score: 0 12/18/19 23 2:25 PM EDT documented as of this encounter Care Teams Salad Bar Clerk Relationship Specialty Start Date End Date Emmanuel Mccarthy MD [address] [place] [phone] PCP - General Internal Medicine 07/31/20 documented as of this encounter
--- OUTSIDE RECORDS SUMMARY | 2025-07-13 16:20 | XMS_ITS | Clinical Summary ---
Author Organization [facility] [address] [facility] Address [address] [place] [address] Phone Care Team Providers Care Craft Artist Name Role Phone Emmanuel Hyatt MD Primary Care Provi paz Encounters Date Type Department Care Team Description 05/24/2025 11:09 AM EDT - 05/24/2025 11:59 PM EDT Hospital Encounter [facility] CT Scan [address] [place] [address] Encounter for screening for malignant neoplasm of respiratory organs; Nicotine dependence, cigarettes, uncomplicated Discharge Disposition: Home or Self Care 04/27/2025 Telephone Lung Screening Program - [address] [place] [address] Audrey Mattson MA from Last 3 Months Surgical History Surgery Date Site/Laterality Comments OTHER SURGICAL HISTORY 2007 Bilateral PROCEDURE: KS XCAPSL CTRC RMVL INSJ IO LENS PROSTH CPLX WO ECP Medical History Medical History Date Comments Back pain DX:Back pain COPD (chronic obstructive pu lmonary disease) (CMS/HCC V24, CMS/HCC V28) DX:COPD (chronic o bstructive pulmonary disease) ([facility]) Pulmonary nodules DX:Pulmonary n odules Social History Tobacco Use Types Packs/Day Years Used Date Smoking Tobacco: Every Day Cigarettes 1 58.9 Started: 09/05/1966 Smokeless Tobacco: Never Sex and [...] Health Maintenance Due Date Last Done Comments Colorectal Cancer Screening: Colonoscopy 1959 Pneumococcal Vaccine: 50+ Years (1 of 2 - PCV) 1978 RSV Immunization Adult Patients (1 - Risk 50-74 years 1-dose series) 2009 Zoster Vaccines (1 of 2) 2009 Abdominal Aortic Aneurysm (AAA) Screen 08/23/2022 Cholesterol Screening (Lipid Panel) 08/23/2022 Medicare Annual Wellness Visit 08/23/2022 Social Influencers of Health Screening 08/23/2022 Falls Risk Assessment 2024 Depression Screening 09/20/2024 COVID-19 Vaccine (3 - season) 2025 12/31/2020, 12/03/2020 Influenza Vaccine (#1) 2025 07/30/2015 Lung Cancer Screening (Low Dose CT) 05/24/2026 05/24/2025, 05/19/2024, 04/01/2023, Additional history exists DTaP,Tdap,and Td Vaccines (4 - Td or [...] Date/Time Associated Diagnosis Comments CT LUNG SCREENING Routine 05/24/2025 11: 20 AM EDT Encounter for screening for malignant neoplasm of respiratory organs Nicotine dependence, cigarettes, uncomplicated from Last 3 Months Results * CT Lung Screening (05/24/2025 11:20 AM EDT) Anatomical Region Laterality Modality Chest Computed Tomogra phy 06/04/2025 10:4 6 AM EDT Impressions 06/04/2025 10:59 AM EDT Impression: New 4 mm juxtapleural solid right upper lobe nodule, probably benign, for which a follow-up low-dose CT is recommended in 6 months. Lung-RADS Category: Lung-RADS 3: Probably benign nodule(s). Recommend follow up with Low Dose Chest CT in 6 months. Telerad PA ([id number]) -------- FINAL REPORT -------- Dictated By: Daniela Edmonds Dictated Date: 06/04/2025 10:46 ET Assigned Physician: Daniela Edmonds Reviewed and Electronically Signed By: Daniela Edmonds Signed Date: 06/04/2025 10:59 ET Workstation ID: [id number] Transcribed By: Self Edit Transcribed Date: 06/04/2025 10:46 ET Narrative 06/04/2025 10:59 AM EDT History: 65 year-old 58 pack-year current smoker, asymptomatic, for lung cancer screening. Comparison: 05/19/24 Technique: Helical volumetric imaging of the thorax was performed, using low- dose technique, without IV contrast. DLP: 122.04 mGy/cm CTDIvol: 3.22 mGy [employer] VCT Iterative reconstruction technique Findings: Lungs and Airways: The trachea and central bronchial tree remain patent. Diffuse bronchial wall thickening is again noted, consistent with bronchitis. Severe emphysematous destruction of the pulmonary parenchyma is again seen. A new 4 mm solid, noncalcified juxtapleural nodule is seen in the right upper lobe (image 87 series 3). Stable solid, noncalcified nodules include a 4 mm left lower lobe nodule (image 121 series 3), a 3 mm left lower lobe nodule (image 142), a 4 mm juxtapleural left upper lobe nodule (image 98), a 4 mm right upper lobe nodule (image 97), and a 3 mm right lower lobe nodule (image 167). Pleura: No pleural or pericardial effusions are seen. Base of neck, mediastinum and heart: The heart remains normal in size. Mild coronary artery calcification is again noted. No developing thoracic lymphadenopathy is seen. Soft tissues: The overlying soft tissues are unremarkable. Abdomen: This study was performed without contrast and with lower than standard dose. These factors reduce the sensitivity for detection of small lesions in the upper abdomen. No significant abnormality is seen. Procedure Note Daniela Edmonds MD - 06/04/2025 History: 65 year-old 58 pack-year current smoker, asymptomatic, for lungcancer screening. Comparison: 05/19/24 Technique: Helical volumetric imaging of the thorax was performed, usinglow-dose technique, without IV contrast. DLP: 122.04 mGy/cm CTDIvol: 3.22 mGy [employer] VCT Iterative reconstruction technique Findings: Lungs and Airways: The trachea and central bronchial tree remain patent.Diffuse bronchial wall thickening is again noted, consistent withbronchitis. Severe emphysematous destruction of the pulmonary parenchymais again seen. A new 4 mm solid, noncalcified juxtapleural nodule is seen in the rightupper lobe (image 87 series 3). Stable solid, noncalcified nodules include a 4 mm left lower lobe nodule(image 121 series 3), a 3 mm left lower lobe nodule (image 142), a 4 mmjuxtapleural left upper lobe nodule (image 98), a 4 mm right upper lobenodule (image 97), and a 3 mm right lower lobe nodule (image 167). Pleura: No pleural or pericardial effusions are seen. Base of neck, mediastinum and heart: The heart remains normal in size.Mild coronary artery calcification is again noted. No developing thoraciclymphadenopathy is seen. Soft tissues: The overlying soft tissues are unremarkable. Abdomen: This study was performed without contrast and with lower thanstandard dose. These factors reduce the sensitivity for detection of smalllesions in the upper abdomen. No significant abnormality is seen. IMPRESSION: Impression: New 4 mm juxtapleural solid right upper lobe nodule, probably benign, forwhich a follow-up low-dose CT is recommended in 6 months. Lung-RADS Category: Lung-RADS 3: Probably benign nodule(s). Recommendfollow up with Low Dose Chest CT in 6 months. Telerad JOYCE ([id number]) -------- FINAL REPORT -------- Dictated By: Daniela Edmonds Dictated Date: 06/04/2025 10:46 ET Assigned Physician: Daniela Edmonds Reviewed and Electronically Signed By: Daniela Edmonds Signed Date: 06/04/2025 10:59 ET Workstation ID: [id number] Transcribed By: Self Edit Transcribed Date: 06/04/2025 10:46 ET Lisbet Morse MD IMG CT PROCEDURES Final Result from Last 3 Months Insurance MEDICA[place] - [place] MEDICARE Care Teams Craft Artist Relationship Specialty Start Date End Date Emmanuel Hyatt MD [address] [place] [address] [facility] [place] [address] PCP - General 09/21/23
--- OUTSIDE RECORDS SUMMARY | 2025-07-13 16:20 | XMS_ITS | Encounter Summary ---
Author Organization [employer] Address [address] [facility] [address] [place] [address] Care Team Providers Care Commissary Steward Name Role Phone Emmnauel Mccarthy MD Primary Care Provide r Encounter Details Date Type Department Care Team ([facility] Contact Info) Description 06/05/2025 Orders Only [facility] [address] [place], [place] [phone] ProviderReynaldo MD Social History Tobacco Use Types Packs/Day Years [...] your housing situation today? I have zoila sing 01/04/[address] you li [...] t he electric, gas, oil or water [employer] threatened to shut off services in your [...] on file documented as of this encounter Procedures Procedure Name Priority Date/Time Associated Diagnosis Comments CT LUNG SCREENING Routine 05/24/2025 8:09 AM EDT documented in this encounter Results * CT Lung Screening Low dose (05/24/2025 8:09 AM EDT) Anatomical Region Laterality Modality Lung Computed Tomogra phy us Historical Provider MD FORBES CT PROCEDURES Final R esult documented in this encounter Visit Diagnoses Not on filedocumented in this encounter Additional Health Concerns Assessment Noted Time PHQ-9 Depression Total Score: 11 025 1:01 PM EDT documented as of this encounter Care Teams Commissary Steward Relationship Specialty Start Date End Date Emmanuel Mccarthy MD [address] [place] [address] PCP - General Internal Medicine 07/31/20 documented as of this encounter
--- OUTSIDE RECORDS SUMMARY | 2025-07-13 16:20 | XMS_ITS | Clinical Summary ---
Author Organization [employer] Address [address] [place] [address] [address] [place] [address] Care Team Providers Care Switcher Name Role Phone Emmanuel Mccarthy MD Primary Care Provide r Allergies No known active allergies Medications Multiple Vitamins-Minera ls (PreserVision AREDS 2) capsule Take 1 capsule by mouth 2 times daily. Take with food. 60 capsule 11 023 Active silver sulfADIAZINE (Silvadene) 1 % cream Apply topically in the morning. 50 g 023 Active naproxen (Naprosyn) 500 MG tabletIndicatio ns:Left elbow pain Take 1 tablet (500 mg) by mouth with breakfast and with evening meal. 60 tablet 023 Active albuterol (2.5 MG/3ML) 0.083% nebulizer solutionIndicat ions:COPD exacerbation (CMS/HCC) (HCC) Take 3 mL (2.5 mg) by nebulization every 6 (six) hours if needed for wheezing. 90 mL 3 025 Active Fluticasone-Ume clidin-Vilant (Trelegy Ellipta) 200-62.5-25 MCG/ACT aerosol powderIndicatio ns:Chronic obstructive pulmonary disease with acute exacerbation (CMS/HCC) (HCC) Inhale 1 puff Once per day. 28 each 3 025 Active albuterol 108 (90 Base) MCG/ACT inhalerIndicati ons:Chronic obstructive pulmonary disease with acute exacerbation (CMS/HCC) (HCC) Inhale 2 puffs every 4 (four) hours if needed for wheezing. 18 g 3 025 Active varenicline (Chantix) 1 MG tabletIndicatio ns:Tobacco dependence syndrome TAKE 1 TABLET BY MOUTH TWICE DAILY WITH A FULL GLASS OF WATER 56 tablet 1 025 Active azithromycin (Zithromax Z-Severiano) 250 MG tabletIndicatio ns:Chronic obstructive pulmonary disease with acute exacerbation (CMS/HCC) (HCC) Take 2 tabs po x 1 day then 1 tab po daily x 4 days 6 tablet 025 2024 Discontinued(T herapy completed) albuterol 108 (90 Base) MCG/ACT inhalerIndicati ons:Chronic obstructive pulmonary disease with acute exacerbation (CMS/HCC) ([facility]) Inhale 2 puffs every 4 (four) hours if needed for wheezing. 18 g 3 025 2024 Discontinued(R eorder (will not trigger notification to Pharmacy)) varenicline (Chantix) 1 MG tabletIndicatio ns:Tobacco dependence syndrome TAKE 1 TABLET BY MOUTH TWICE DAILY WITH A FULL GLASS OF WATER 56 tablet 1 025 2024 Discontinued(R eorder (will not trigger notification to Pharmacy)) predniSONE (Deltasone) 20 MG tabletIndicatio ns:Asthma Take 2 tablets (40 mg) by mouth Once per day for 3 days, THEN 1 tablet (20 mg) Once per day for 2 days, THEN 0.5 tablets (10 mg) Once per day for 2 days. 9 tablet 025 2024 Active Problems Problem Noted Date Diagnosed Date Elevated PSA 06/21/2025 Assessment & Plan (06/21/2025 11:31 AM EDT): Seen by Urology 05/28/2025 will continue to follow with them PSA 03/26/2025 4.29 Depressed mood 06/21/2025 Assessment & Plan (06/21/2025 11:35 AM EDT): Patient feels depressed, due to familiar problems that he declines to discuss He declines to speak to a therapist He states he can manage on his own Denies SI Left elbow pain 09/16/2023 Assessment & Plan [...] Abnormality of esophagus 02/09/2023 Assessment & Plan (06/21/2025 11:28 AM EDT): Pt here for a follow up Previous Incidental finding on CT of Chest for lung cancer screening on 12/29/2022 showed: Question wall thickening of the distal thoracic esophagus. Given that he is a smoker he needed an endoscopy to rule out malignancy Seen by GI 06/30/2023 they recommended EGD. Pt missed the appointment. Finally see by GI 03/26/2025 they recommended to repeat a Barium Swallow and based on those results they would decide if he needs an EGD or not Assessment & Plan (03/22/2025 9:58 AM EDT): [...] obstructive pulmonar y disease with acute exacerbation (CMS/HCC) 12/17/2022 Assessment & Plan (06/21/2025 11:39 AM EDT): Patient is here for a follow up. Unfortunately, he started smoking again CT of chest 11/14/2019 showed Emphysema (mild) and multiple pulmonary nodules. He used to have a Layer Off at [facility]. Dr. Campoverde last note from 02/2021, I counseled about smoking cessation again. I have refilled his Incruse Ellipta, Symbicort and Albuterol He used to be under the care of Layer Off Dr Rafael Vinson at [facility] . Last visit he told me he wanted to go to [facility] instead. Referral was placed Last PFTs 12/03/2023 showed Mod emphysema with bronchodilator response Repeat PFTs ordered he no showed appointment 02/01/2025.rescheduled for 05/30/2025 he no showed again Today c/o cough and wheezing. Plan: Refill inhalers, Prednisone taper Pt no showed for pulmonology appointment F/u if no improvement Assessment & Plan (03/22/2025 10:20 AM EDT): Patient is here for a follow up. Unfortunately, he is still smoking CT of chest 11/14/2019 showed Emphysema (mild) and multiple pulmonary nodules. He used to have a Layer Off at [facility]. Dr. Campoverde last note from 02/2021, I counseled about smoking cessation again. I have refilled his Incruse Ellipta, Symbicort and Albuterol He used to be under the care of Layer Off Dr Rafael Vinson at [facility] . Last visit he told me he wanted to go to [facility] Pulmon[facility] instead. Referral was placed Last PFTs [...] pulmonary nodules. He used to have a Layer Off at [facility]. Dr. Campoverde last note from 02/2021, I counseled about smoking cessation again. I have refilled his Incruse Ellipta, Symbicort and Albuterol He used to be under the care of Layer Off Dr Rafael Vinson at [facility] . Today he tells me he would like to go to [facility] Pulmon[facility] instead Last PFTs 12/03/2023 showed Mod emphysema with bronchodilator response Today with c/o productive cough and wheezing Office Visit on 12/21/2024 Component Date Value Rapid COVID Ag 12/21/2024 Negative QC Media Lot # 12/21/2024 [id number] Lot# Expiration Date 12/21/2024 [id number] Influenza A 12/21/2024 Negative QC Media Lot # 12/21/2024 [id number] Lot# Expiration Date 12/21/2024 [id number] Influenza B 12/21/2024 Negative QC Media Lot # 12/21/2024 [id number] Lot# Expiration Date 12/21/2024 [id number] Plan: Prednisone taper, Z-pack Referred to [facility] Pulmon[facility] Assessment & Plan (01/04/2024 1:40 PM EDT): Patient is here for a follow up. He is still smoking CT of chest 11/14/2019 showed Emphysema (mild) and multiple pulmonary nodules. He used to have a Layer Off at [facility]. Dr. Campoverde last note from 02/2021, [...] year repeat recommended Under the care of Layer Off Dr Rafael Vinson at [facility] Assessment & Plan (09/16/2023 1:33 PM EST): Patient is here for a follow up. He is still smoking half a pack per day CT of chest 11/14/2019 showed Emphysema (mild) and multiple pulmonary nodules. He used to have a Layer Off at [facility]. Dr. Campoverde last note from 02/2021, [...] Plan: Will refer to Pulmonology today at [facility] Assessment & Plan (02/09/2023 9:18 AM EDT): Patient is here for a follow up.He is still smking half a pack per day and denies any recent exacerbations CT of chest 11/14/2019 showed Emphysema (mild) and multiple pulmonary nodules. He used to have a Layer Off at [facility]. Dr. Campoverde last note from 02/2021, [...] he tells me he was living in [facility], but then proceeds to tell me he is seeing a [facility] in [place] but does not know his name and does not recall who sent him there He is still smking half a pack per day and denies any recent exacerbations CT of chest 11/14/2019 showed Emphysema (mild) and multiple pulmonary nodules. He used to have a Layer Off at [facility]. Dr. Campoverde last note from 02/2021, [...] repeat recommended Most recent 05/19/2024 at [facility]: LungRads 2 1 year [...] Tobacco dependence syndrome 09/07/2012 Assessment & Plan (06/21/2025 11:29 AM EDT): Most recent Low dose CT showed 06/04/2025 10:59 AM EDT Impression: New 4 mm juxtapleural solid right upper lobe nodule, probably benign, for which a follow-up low-dose CT is recommended in 6 months. Lung-RADS Category: Lung-RADS 3: Probably benign nodule(s). Recommend follow up with Low Dose Chest CT in 6 months. Assessment & Plan (12/21/2024 1:13 PM EDT): [...] Encounters Date Type Department Care Team Description 06/21/2025 11:15 AM EDT Office Visit [facility] [address] [place] [phone] Emmanuel Mccarthy MD Abnormality of esophagus (Primary Dx); Tobacco dependence syndrome; Elevated PSA; Chronic obstructive pulmonary disease with acute exacerbation (CMS/HCC) (HCC); Depressed mood 06/21/2025 Travel 06/20/2025 Telephone [facility] [address] [place] [address] Emmanuel Mccarthy MD chart prep 06/05/2025 Orders Only [facility] [address] [place] [address] Provider, MD Reynaldo from Last 3 Months Immunizations Immunization Administration [...] Answer Date Recorded Patient Health Questionnaire-9 Score 7 06/21/2025 Patient Health Questionnaire-9 Score 7 06/21/2025 Last PHQ-9: Questionnaire Data Not on file 1 Housing Stability Answer Date Recorded What is your housing situation today? I have zoilaisabel foley 01/04/[address] you [...] Answer Date Recorded Patient Health Questionnaire-2 Score 2 06/21/2025 Internet Access Answer Date Recorded Internet Access [...] Sign Reading Time Taken Comments Blood Pressure 150/80 06/21/2025 11:26 AM EDT Pulse 88 06/21/2025 11:26 AM EDT Temperature 36.3 C (97.3 F) 06/21/2025 11:26 AM EDT Respiratory Rate 20 06/21/2025 11:26 AM EDT Oxygen Saturation 98% 06/21/2025 11:26 AM EDT Inhaled Oxygen Concentration - - Weight 65.8 kg (145 lb) 06/21/2025 11:26 AM EDT Height 162.6 cm (5' 4 ) 06/21/2025 11:26 AM EDT Body Mass Index 24.89 06/21/2025 11:26 AM EDT Plan of Treatment Health Maintenance Due Date [...] 12/31/2020, 12/03/2020 Influenza Vaccine (#1) 2025 07/30/2015 Alcohol/Substance Use Screening 12/21/2025 12/21/2024 SDOH Screening 12/21/2025 12/21/2024 Colorectal Cancer Screening 02/09/2026 FIT DNA/Cologuard 02/09/2026 02/09/2023 Depression Screening 06/21/2026 06/21/2025, 06/21/2025 Tobacco Screening 06/21/2026 06/21/2025 Lipid Panel 12/19/2027 12/18/2022, 01/28/2021 DTaP/Tdap/Td Vaccines [...] Diagnosis Comments CT LUNG SCREENING Routine 05/24/2025 8:0 9 AM EDT HEPATITIS C AB W/REFL TO HCV RNA, QN, PCR Routine 12/18/2022 2:07 PM EDT Preventative health care LIPID PANEL WITH REFLEX TO DIRECT LDL Routine 12/18/2022 2:07 PM EDT Pulmonary emphysema, unspecified emphysema type (CMS/HCC) from Last 3 Months or Most Recently Relevant to Health Maintenance Results * CT Lung Screening Low dose (05/24/2025 8:09 AM EDT) Anatomical Region Laterality Modality Lung Computed Tomogra phy us Historical Provider MD FORBES CT PROCEDURES Final R esult * (ABNORMAL) Lipid Panel with Reflex to Direct LDL (12/18/2022 2:07 PM EDT) Cholesterol, Total 209(H) <200 mg/dL [facility] [employer] [place] [employer] HDL Cholesterol 55 > OR = 40 mg/dL [facility] [place] [employer] Triglycerides 96 <150 mg/dL [employer] LDL Cholesterol 134(H) mg/dL (calc) [facility] [employer] [facility] [place] [employer] Comment: Reference range: <100 Desirable range <100 mg/dL for primary prevention; <70 mg/dL for patients with CHD or diabetic patients with > or = 2 CHD risk factors. LDL-C is now calculated using the Dilma calculation, which is a validated novel method providing better accuracy than the Friedewald equation in the estimation of LDL-C. Josh RAMIREZ et al. KATIANA. 2013;310(19): 3792-5381 (http://education.[employer]/faq/GVX528) Chol/HDLC Ratio 3.8 <5.0 (calc) [facility] [place] [employer] Non-HDL Cholesterol 154(H) <130 mg/dL (calc) [employer] [facility] [place] [employer] Comment: For patients with diabetes plus 1 major ASCVD risk factor, treating to a non-HDL-C goal of <100 mg/dL (LDL-C of <70 mg/dL) is considered a therapeutic option. 12/18/2022 2:07 PM EDT 12/18/2022 2:07 PM EDT Narrative [facility] - 12/19/2022 9:22 AM EDT FASTING:YES FASTING: YES Result [facility] Emmanuel Cash MD LAB BLOOD ORDERABLES Final Result [address], [place] [address] [facility] [employer] [facility] [place] [employer] [address] [place] [address] * Hepatitis C Antibody with Reflex to HCV, RNA, Quantitative, Real-Time PCR (12/18/2022 2:07 PM EDT) Hepatitis C Antibody NON-REACT IAIN NON-REACT IAIN [facility] [employer] [facility] [place] [employer] Index 0.03 <1.00 [facility] [place] [employer] Comment: HCV antibody was non-reactive. There is no laboratory evidence of HCV infection. In most cases, no further action is required. However, if recent HCV exposure is suspected, a test for HCV RNA (test code 33187) is suggested. For additional information please refer to http://education.[employer]/faq/NWK19g9 (This link is being provided for informational/ educational purposes only.) Blood Venous blood specimen / Unknown 12/18/2022 2:07 PM EDT 12/18/2022 2:07 PM EDT Narrative [facility] - 12/19/2022 9:22 AM EDT FASTING:YES FASTING: YES us Emmanuel Cash MD LAB BLOOD ORDERABLES Final Result [facility] [address] [facility], [facility], [place] [address] [employer] [facility] [address] [place] [address] from Last 3 Months or Most Recently Relevant to Health Maintenance Insurance [employer] [employer] MEDICARE Care Teams Switcher Relationship Specialty Start Date End Date Emmanuel Mccarthy MD [address] [place] [address] PCP - General Internal Medicine 07/31/20
--- OUTSIDE RECORDS SUMMARY | 2025-07-13 16:20 | XMS_ITS | Encounter Summary ---
Author Organization [employer] Address [address] [facility] [address] [place] [address] Care Team Providers Care Assistant Accounting Manager Name Role Phone Emmanuel Mccarthy MD Primary Care Provide r Encounter Details Date Type Department Care Team (Latest Contact Info) Description 06/26/2019 Abstract [facility] CONVERSIONS Dental, Provider, DDS Social History Tobacco [...] on filedocumented in this encounter Care Teams Assistant Accounting Manager Relationship Specialty Start Date End Date Emmanuel Mccarthy MD [address] [place] [address] PCP - General Internal Medicine 07/31/20 documented as of this encounter
[2025-07-13 17:37] LABS: PSA,Total (Free>4and<10) 5.92 ng/mL (0.00-4.00)
[2025-07-16 13:44] LABS: Free Prostate Spec Ag 0.8 ng/mL; Percent Free Prostate Spec Ag 16 % (calc) (>25)
== END 2025-07-13 14:27 | disposition home or self-care (01) ==
LOC: HO.HHCL 14:26
PROVIDERS: PCP Internal Medicine; Visit Provider Nurse Practitioner Family
DX: R97.20 Elevated prostate specific antigen [PSA] (principal); Z12.5 Encounter for screening for malignant neoplasm of prostate
CPT/HCPCS: 36415; 84153; 84154

== ENCOUNTER 2025-07-16 09:54 | Outpatient (REF) | payer MEDICARE, MEDICAID, SELFPAY ==
--- NOTE | ~2025-07-16 | FL_ITS ---
EXAMINATION: XR BARIUM SWALLOW CLINICAL INFORMATION: Esophagitis. Difficulty swallowing solid food. COMPARISON: None available. TECHNIQUE: Routine upright barium swallow with thick barium and barium coated saltine crackers coated with barium paste and thin barium in prone lying position was performed. FINDINGS: Following oral administration of thick barium there is normal propagation of bolus from the oral cavity through the distal esophagus. There is moderate-sized severe spasm which is intermittently but significantly narrowing the distal esophagus and the GE junction. No laryngeal penetration or aspiration. On oral administration of saltine crackers coated barium paste there is normal oral mastication and propagation of solid food from the oral cavity through the pharynx, esophagus into stomach. On placing patient prone lying and oral administration of thin barium there is good distention of the entire esophagus without any intraluminal filling defect or extrinsic compression. A small sliding hiatal hernia is suspected. FLUOROSCOPY TIME: 3 minutes and 14 seconds. DOSE AREA PRODUCT: 1751 uGy-m2 (microgray-meter squared) FL/FL barium swallow IMPRESSION: Intermittent high-grade spasm along the distal esophagus. No focal lesion or mass seen. Suspect small sliding hiatal hernia. Electronically signed by: Chetan Peterson MD 07/16/2025 12:11 PM EDT
--- OUTSIDE RECORDS SUMMARY | 2025-07-16 11:29 | XMS_ITS | Encounter Summary ---
Author Organization [employer] Address [address] [facility] 7t [place] [address] Care Team Providers Care Automotive Parts Interpreter Name Role Phone Emmanuel Mccarthy MD Primary Care Provide r Encounter Details Date Type Department Care Team ([facility] Contact Info) Description 07/13/2025 Orders Only GENERIC EXTERNAL DATA DEPARTMENT Provider, Generic External Data Social History Tobacco Use Types Packs/Day Years [...] Procedure Name Priority Date/Time Associated Diagnosis Comments PSA, TOTAL WITH REFLEX TO PSA, FREE Routine 07/13/2025 2:48 PM EDT documented in this encounter Results * (ABNORMAL) PSA, Total With Reflex to PSA, Free (07/13/2025 2:48 PM EDT) PSA,Total (Free>4and<10) 5.92(H) 0.00 - 4.00 ng/mL [facility] Comment:PSA methodology: David Lo i ChemiluminescentMicroparticle Immunoassay (CMIA) 07/13/2025 2:48 PM EDT 07/13/2025 4:07 PM EDT us Generic External Data Provider LAB BLOOD ORDERAB LES Final Result [facility] [address] [place] [phone] documented in this encounter Visit Diagnoses Not on filedocumented in this encounter Additional Health Concerns Assessment Noted Time PHQ-9 Depression Total Score: 7 06/21/20 25 11:27 AM EDT documented as of this encounter Care Teams Automotive Parts Interpreter Relationship Specialty Start Date End Date Emmanuel Mccarthy MD [address] [place] [phone] PCP - General Internal Medicine 07/31/20 documented as of this encounter
--- OUTSIDE RECORDS SUMMARY | 2025-07-16 11:29 | XMS_ITS | Encounter Summary ---
Author Organization [employer] Address [address] [facility] 7t [place] [address] Care Team Providers Care Tool Shaper Set Up Operator Name Role Phone Emmanuel Mccarthy MD Primary Care Provide r Encounter Details Date Type Department Care Team (Latest Contact Info) Description 06/26/2019 Abstract [facility] CONVERSIONS Dental, Provider, DDS Social History Tobacco [...] on filedocumented in this encounter Care Teams Tool Shaper Set Up Operator Relationship Specialty Start Date End Date Emmanuel Mccarthy MD [address] [place] [phone] PCP - General Internal Medicine 07/31/20 documented as of this encounter
--- OUTSIDE RECORDS SUMMARY | 2025-07-16 11:29 | XMS_ITS | Clinical Summary ---
Author Organization [facility] [address] [facility] Address [address] [place] [address] Phone Care Team Providers Care Congressional Aide Name Role Phone Emmanuel Hyatt MD Primary Care Provi paz Encounters Date Type Department Care Team Description 05/24/2025 11:09 AM EDT - 05/24/2025 11:59 PM EDT Hospital Encounter [facility] CT Scan [address] [place] [address] Encounter for screening for malignant neoplasm of respiratory organs; Nicotine dependence, cigarettes, uncomplicated Discharge Disposition: Home or Self Care 04/27/2025 Telephone Lung Screening Program - [address] [place] [address] Audrey Mattson MA from Last 3 Months Surgical History Surgery Date Site/Laterality Comments OTHER SURGICAL HISTORY 2007 Bilateral PROCEDURE: OR XCAPSL CTRC RMVL INSJ IO LENS PROSTH CPLX WO ECP Medical History Medical History Date Comments Back pain DX:Back pain COPD (chronic obstructive pu lmonary disease) (CMS/HCC V24, CMS/HCC V28) DX:COPD (chronic o bstructive pulmonary disease) ([facility]) Pulmonary nodules DX:Pulmonary n odules Social History [...] Chest CT in 6 months. [place] ([id number]) -------- FINAL REPORT -------- Dictated By: Daniela Edmonds Dictated Date: 06/04/2025 10:46 ET Assigned Physician: Daniela Edmonds Reviewed and Electronically Signed By: Daniela Edmonds Signed Date: 06/04/2025 10:59 ET Workstation ID: [id number] Transcribed By: Self Edit Transcribed Date: 06/04/2025 10:46 ET Narrative 06/04/2025 10:59 AM EDT History: 65 year-old 58 pack-year current smoker, asymptomatic, for lung cancer screening. Comparison: 05/19/24 Technique: Helical volumetric imaging of the thorax was performed, using low- dose technique, without IV contrast. DLP: 122.04 mGy/cm CTDIvol: 3.22 mGy Deminos VCT Iterative reconstruction technique Findings: Lungs and [...] contrast. DLP: 122.04 mGy/cm CTDIvol: 3.22 mGy Deminos VCT Iterative reconstruction technique Findings: Lungs and [...] Chest CT in 6 months. Teler[facility] JOYCE ([id number]) -------- FINAL REPORT -------- Dictated By: Daniela Edmonds Dictated Date: 06/04/2025 10:46 ET Assigned Physician: Daniela Edmonds Reviewed and Electronically Signed By: Daniela Edmonds Signed Date: 06/04/2025 10:59 ET Workstation ID: [id number] Transcribed By: Self Edit Transcribed Date: 06/04/2025 10:46 ET Lisbet Morse MD IMG CT PROCEDURES Final Result from Last 3 Months Insurance MEDICAID - [place] MEDICARE Care Teams Congressional Aide Relationship Specialty Start Date End Date Emmanuel Hyatt MD [address] [place] [address] [facility] [place] [phone] PCP - General 09/21/23
--- OUTSIDE RECORDS SUMMARY | 2025-07-16 11:29 | XMS_ITS | Clinical Summary ---
Author Organization [employer] Address [address] [place] [address] 7t [place] [address] Care Team Providers Care Giver Name Role Phone Emmanuel Mccarthy MD Primary [...] obstructive pulmonary disease with acute exacerbation (CMS/HCC) ([facility]) Inhale 2 puffs every 4 (four) hours [...] pulmonary nodules. He used to have a Special Weapons And Tactics Officer at [facility]. Dr. Campoverde last note from 02/2021, I counseled about smoking cessation again. I have refilled his Incruse Ellipta, Symbicort and Albuterol He used to be under the care of Special Weapons And Tactics Officer Dr Rafael Vinson [place] [facility] [place] Last visit he told me he wanted to go to [facility] instead. Referral was placed Last PFTs [...] pulmonary nodules. He used to have a Special Weapons And Tactics Officer at [facility]. Dr. Campoverde last note from 02/2021, I counseled about smoking cessation again. I have refilled his Incruse Ellipta, Symbicort and Albuterol He used to be under the care of Special Weapons And Tactics Officer Dr Rafael Vinson at [facility] . Last visit he told me he wanted to go to [facility] instead. Referral was placed Last PFTs [...] pulmonary nodules. He used to have a Special Weapons And Tactics Officer at [facility]. Dr. Campoverde last note from 02/2021, I counseled about smoking cessation again. I have refilled his Incruse Ellipta, Symbicort and Albuterol He used to be under the care of Special Weapons And Tactics Officer Dr Rafael Vinson at [facility] . Today he tells me he would like to go to [facility] instead Last PFTs 12/03/2023 showed Mod emphysema with bronchodilator response Today with c/o productive cough and wheezing Office Visit on 12/21/2024 Component Date Value Rapid COVID Ag 12/21/2024 Negative QC Media Lot # 12/21/2024 [id number] Lot# Expiration Date 12/21/2024 [id number] Influenza A 12/21/2024 Negative QC Media Lot # 12/21/2024 [id number] Lot# Expiration Date 12/21/2024 [id number] Influenza B 12/21/2024 Negative QC Media Lot # 12/21/2024 [id number] Lot# Expiration Date 12/21/2024 [id number] Plan: Prednisone taper, Z-pack Referred to [facility] Assessment & Plan (01/04/2024 1:40 PM EDT): Patient is here for a follow up. He is still smoking CT of chest 11/14/2019 showed Emphysema (mild) and multiple pulmonary nodules. He used to have a Special Weapons And Tactics Officer at [facility]. Dr. Campoverde last note from 02/2021, But [...] year repeat recommended Under the care of Special Weapons And Tactics Officer Dr Rafael Vinson at [facility] Assessment & Plan (09/16/2023 1:33 PM EST): Patient is here for a follow up. He is still smoking half a pack per day CT of chest 11/14/2019 showed Emphysema (mild) and multiple pulmonary nodules. He used to have a Special Weapons And Tactics Officer at [facility]. Dr. Campoverde last note from 02/2021, But [...] Plan: Will refer to Pulmonology today at [facility] Assessment & Plan (02/09/2023 9:18 AM EDT): Patient is here for a follow up.He is still smking half a pack per day and denies any recent exacerbations CT of chest 11/14/2019 showed Emphysema (mild) and multiple pulmonary nodules. He used to have a Special Weapons And Tactics Officer at [facility]. Dr. Campoverde last note from 02/2021, But [...] he tells me he was living in [facility], but then proceeds to tell me he is seeing a Assistant Professor Of Radiology in [place] but does not know his name and does not recall who sent him there He is still smking half a pack per day and denies any recent exacerbations CT of chest 11/14/2019 showed Emphysema (mild) and multiple pulmonary nodules. He used to have a Special Weapons And Tactics Officer at [facility]. Dr. Campoverde last note from 02/2021, But [...] year repeat recommended Most recent 05/19/2024 at [facility]: [facility] 2 1 year follow up [...] Encounters Date Type Department Care Team Description 07/13/2025 Orders Only GENERIC EXTERNAL DATA DEPARTMENT Provider, Generic External Data 06/21/2025 11:15 AM EDT Office Visit [facility] [address] [place] [phone] Emmanuel Mccarthy MD Abnormality of esophagus (Primary Dx); Tobacco dependence syndrome; Elevated PSA; Chronic obstructive pulmonary disease with acute exacerbation (CMS/HCC) (HCC); Depressed mood 06/21/2025 Travel 06/20/2025 Telephone [facility] [address] [place] [phone] Emmanuel Mccarthy MD chart prep 06/05/2025 Orders Only [facility] [address] [place] [address] Provider, MD Reynaldo from Last [...] is your housing situation today? I have ozila foley 01/04/[address] you [...] PSA, FREE Routine 07/13/2025 2:[address] LUNG SCREENING Routine 05/24/2025 8:0 9 AM EDT HEPATITIS C AB W/REFL TO HCV RNA, QN, PCR Routine 12/18/2022 2:07 PM EDT Preventative health care LIPID PANEL WITH REFLEX TO DIRECT LDL Routine 12/18/2022 2:07 PM EDT Pulmonary emphysema, unspecified emphysema type (CMS/HCC) from Last 3 Months or Most Recently Relevant to Health Maintenance Results * (ABNORMAL) PSA, Total With Reflex to PSA, Free (07/13/2025 2:48 PM EDT) PSA,Total (Free>4and<10) 5.92(H) 0.00 - 4.00 ng/mL [facility] Comment:PSA methodology: David Lo i ChemiluminescentMicroparticle Immunoassay (CMIA) 07/13/2025 2:48 PM EDT 07/13/2025 4:07 PM EDT us Generic External Data Provider LAB BLOOD ORDERAB LES Final Result [facility] [address] [place] [phone] * CT Lung Screening Low dose (05/24/2025 8:09 AM EDT) Anatomical Region Laterality Modality Lung Computed Tomogra phy Historical Provider IMJeff CT PROCEDURES Final R esult * (ABNORMAL) Lipid Panel with Reflex to Direct LDL (12/18/2022 2:07 PM EDT) Cholesterol, Total 209(H) <200 mg/dL [facility] [employer] HDL Cholesterol 55 > OR = 40 mg/dL [facility] [employer] Triglycerides 96 <150 mg/dL [facility] [employer] LDL Cholesterol 134(H) mg/dL (calc) [facility] [employer] Comment: Reference range: <100 Desirable range <100 mg/dL for primary prevention; <70 mg/dL for patients with CHD or diabetic patients with > or = 2 CHD risk factors. LDL-C is now calculated using the Dilma calculation, which is a validated novel method providing better accuracy than the Friedewald equation in the estimation of LDL-C. Josh SS et al. KATIANA. 2013;310(19): 8202-6152 (http://education.[employer]/faq/SZY458) Chol/HDLC Ratio 3.8 <5.0 (calc) [facility] [employer] Non-HDL Cholesterol 154(H) <130 mg/dL (calc) [facility] [employer] Comment: For patients with diabetes plus 1 major ASCVD risk factor, treating to a non-HDL-C goal of <100 mg/dL (LDL-C of <70 mg/dL) is considered a therapeutic option. 12/18/2022 2:07 PM EDT 12/18/2022 2:07 PM EDT Narrative [facility] - 12/19/2022 9:22 AM EDT FASTING:YES FASTING: YES Emmanuel Cash MD LAB BLOOD ORDERABLES Final Result [facility] [address], [place] [address] [facility] [employer] [address] [place] [address] * Hepatitis C Antibody with Reflex to HCV, RNA, Quantitative, Real-Time PCR (12/18/2022 2:07 PM EDT) Hepatitis C Antibody NON-REACT IAIN NON-REACT IAIN [facility] [facility] Index 0.03 <1.00 [facility] Comment: HCV antibody was non-reactive. There is no laboratory evidence of HCV infection. In most cases, no further action is required. However, if recent HCV exposure is suspected, a test for HCV RNA (test code 65202) is suggested. For additional information please refer to http://education.[employer]/faq/RMD01g2 (This link is being provided for informational/ educational purposes only.) Blood Venous blood specimen / Unknown 12/18/2022 2:07 PM EDT 12/18/2022 2:07 PM EDT Narrative [facility] - 12/19/2022 9:22 AM EDT FASTING:YES FASTING: YES Emmanuel Cash MD LAB BLOOD ORDERABLES Final Result [facility] [address], [place] [address] [facility] [employer] [address] [place] [address] from Last 3 Months or Most Recently Relevant to Health Maintenance Insurance [facility] MEDICARE Care Teams Giver Relationship Specialty Start Date End Date Emmanuel Mccarthy MD [address] [place] [phone] PCP - General Internal Medicine 07/31/20
--- OUTSIDE RECORDS SUMMARY | 2025-07-16 11:29 | XMS_ITS | Encounter Summary ---
Author Organization [employer] Address [address] [facility] 7t [place] [address] Care Team Providers Care School Health Assistant Name Role Phone Emmanuel Mccarthy MD Primary Care Provide r Reason for Visit * Reason Comments Med Refill Encounter Details Date Type Department Care Team ([facility] st Contact Info) Description 09/16/2023 Refill [facility] [address] [place] [address] [phone] Samina Correa MD [address] [place], [place] [phone] COPD exacerbation (CMS/HCC) Social History Tobacco Use [...] documented as of this encounter Care Teams School Health Assistant Relationship Specialty Start Date End Date Emmanuel Mccarthy MD [address] [place] [phone] PCP - General Internal Medicine 07/31/20 documented as of this encounter
--- OUTSIDE RECORDS SUMMARY | 2025-07-16 11:29 | XMS_ITS | Encounter Summary ---
Author Organization [employer] Address [address] [facility] 7t [place] [address] Care Team Providers Care Edger Machine Helper Name Role Phone Emmanuel Mccarthy MD Primary Care Provide r Encounter Details Date Type Department Care Team ([facility] Contact Info) Description 06/05/2025 Orders Only [facility] [address] [place], [place] [phone] ProviderReynaldo MD Social History Tobacco Use Types [...] t he electric, gas, oil or water [employer] threatened to shut off services in your [...] documented as of this encounter Care Teams Edger Machine Helper Relationship Specialty Start Date End Date Emmanuel Mccarthy MD [address] [place] [address] PCP - General Internal Medicine 07/31/20 documented as of this encounter
== END 2025-07-16 09:55 | disposition home or self-care (01) ==
LOC: HO.XRAY 09:54
PROVIDERS: PCP Internal Medicine; Visit Provider Internal Medicine
DX: K20.90 Esophagitis, unspecified without bleeding (principal)
CPT/HCPCS: 74220

== ENCOUNTER → 2025-07-16 09:56 | Outpatient (BNV) | payer MEDICARE, MEDICAID, SELFPAY | PROVIDERS: PCP Internal Medicine; Visit Provider Radiology Diagnostic Radiology | DX: R13.10 Dysphagia, unspecified (principal); K20.90 Esophagitis, unspecified without bleeding | CPT/HCPCS: 74221 ==

== ENCOUNTER 2025-07-25 09:45 | Outpatient (AMB) | payer MEDICARE, MEDICAID, SELFPAY ==
--- NOTE | 2025-07-25 09:54 | MHC.OFFVIS ---
Vital Signs 07/25/25 09:55 Height 5 ft 4 in Weight 163 lb 2.273 oz BMI 28.0 BP 144/92 H Blood Pressure Location Lt brachial Position Sitting Pulse 93 Intake Visit Reasons: f/u BA swallow Intake Note: Ronak presents in the office as a follow up for his BA swallow. CC: choking has gotten better. No other concerns. General Merchandise Salesperson Required: No Allergies No Known Allergies (No Known Allergies*) Allergy (Verified 05/28/25 14:50) HPI Comments Details: The patient is a 64-year-old male presenting for esophagitis noted on CT scan 12/2022 who is coming to re-establish care. Was last seen 06/2023 and terri for EGD which was canceled a few times due to acute resp issues. Pt has known asthma/COPD overlap, sees pulmonology but reports that his shortness of breath persists. Worse with lying flat and bending. Reports he has previously been told about a weak heart more than a few years ago. Unable to recall where he had cardiac testing. Reports used to smoke 1 PPD now smokes 1-2 cigarettes a day. Peripheral symptoms include cold, numb fingertips at moderate temperatures. Barium swallow 07/16/25: IMPRESSION: Intermittent high-grade spasm along the distal esophagus. No focal lesion or mass seen. Suspect small sliding hiatal hernia. 07/25/25: Here for follow up. Results of the barium swallow reviewed. Suprisingly pt mentions reduced burden of sx now. He is unsure what helped. Reviewed wiht the pt that will recommend diagnostic egd for luminal eval and to r/o esophagitis and EoE. If EGD neg, next step will be HREM if dysphagia persists. Pt also due for colorectal ca screening however declines endoscopic evaluation despite detailed discussion re indication, benefits and anesthesia. He is agreeable to stool based testing instead. Reports did cologuard 3-4 years ago but does not remember results. No fam hx, rectal bleeding, diarrhea or anemia. PFSH Medical History Pulmonary nodules Tobacco dependence Asthma-COPD overlap syndrome COPD (chronic obstructive pulmonary disease) Esophagitis Surgical History Hx of bilateral cataract extraction Family History Paternal Grandfather Colon cancer Social History Household Members: Family Alcohol intake: current Alcohol intake frequency: holidays/special occasions only Patient Tobacco Use Status: Current everyday Tobacco user Cigarette Packs Per Day: 0.5 Cigarettes Per Day: 10 Years Smoked: 30 + Substance Use Type: Marijuana Review of Systems Const All systems reviewed & are unremarkable except as noted in HPI and below Physical Exam Exam Exam: No apparent distress Nonicteric Abdomen soft, nondistended Alert and oriented x3, normal gait Vital Signs: Last Vital Signs Pulse 93 07/25/25 09:55 BP 144/92 H 07/25/25 09:55 BMI result Body Mass Index 28.0 Assessment & Plan Assessment & Plan (1) Dysphagia: Code(s): R13.10 - Dysphagia, unspecified Category: Medical (2) Colon cancer screening: Code(s): Z12.11 - Encounter for screening for malignant neoplasm of colon Category: Medical (3) Esophageal spasm: Code(s): K22.4 - Dyskinesia of esophagus Category: Medical (4) Asthma-COPD overlap syndrome: Code(s): J44.89 - Other specified chronic obstructive pulmonary disease Category: Medical (5) Tobacco dependence: Code(s): F17.200 - Nicotine dependence, unspecified, uncomplicated Category: Medical Plan 1. dysphagia suspect dysmotility is at play here but needs a diagnostic EGD to r/o esophagitis, EoE, ring/web etc. pt currently smokes and we reviewed risks of cristian-procedure resp complications with ongoing tobacco use disorder. He is trying to slowly cut down. he also has known asthma/copd and reports dyspnea on exertion. Has not followed up with pulm >1 year. He is aware our office will coordinate a clearance prior to EGD. Plan: - EGD to be booked - Pulm clearance given current sx 2. CRC screening overdue. Declines colonoscopy. Plan: - cologuard ordered as per pt preference - pt aware that if positive will need a diagnostic colo - he was encouraged to submit cologuard as early as possible so in case he needs a colo, can be booked alongside the planned egd Follow up after procedures Orders: Referrals GI Procedure Notification R13.10 - Dysphagia, unspecified Coding Level of Care Code Est Pt Level 5 (99641) Complex EM visit Add On G2211 Diagnoses Dysphagia R13.10 Colon cancer screening Z12.11 Esophageal spasm K22.4 Asthma-COPD overlap syndrome J44.89 Tobacco dependence F17.200
[2025-07-25 09:55] VITALS: BP 144/92; PULSE 93; BMI 28.0
--- OUTSIDE RECORDS SUMMARY | 2025-07-25 11:02 | XMS_ITS | Clinical Summary ---
Author Organization [employer] Address [address] [facility] 7t [place] [address] Care Team Providers Care Oil Lease Broker Name Role Phone Emmanuel Mccarthy MD Primary Care Provide r Allergies No known active allergies Medications Multiple Vitamins-Mineral s (PreserVision AREDS 2) capsule Take 1 capsule by mouth 2 times daily. Take with food. 60 capsule 11 01/30/20 23 Active silver sulfADIAZINE (Silvadene) 1 % cream Apply topically in the morning. 50 g 08/02/20 23 Active naproxen (Naprosyn) 500 MG tabletIndication s:Left elbow pain Take 1 tablet (500 mg) by mouth with breakfast and with evening meal. 60 tablet 09/16/20 23 Active albuterol (2.5 MG/3ML) 0.083% nebulizer solutionIndicati ons:COPD exacerbation (CMS/HCC) (HCC) Take 3 mL (2.5 mg) by nebulization every 6 (six) hours if needed for wheezing. 90 mL 3 03/22/20 25 Active Fluticasone-Umec lidin-Vilant (Trelegy Ellipta) 200-62.5-25 MCG/ACT aerosol powderIndication s:Chronic obstructive pulmonary disease with acute exacerbation (CMS/HCC) (HCC) Inhale 1 puff Once per day. 28 each 3 03/22/20 25 Active albuterol 108 (90 Base) MCG/ACT inhalerIndicatio ns:Chronic obstructive pulmonary disease with acute exacerbation (CMS/HCC) (HCC) Inhale 2 puffs every 4 (four) hours if needed for wheezing. 18 g 3 06/21/20 25 Active varenicline (Chantix) 1 MG tabletIndication s:Tobacco dependence syndrome TAKE 1 TABLET BY MOUTH TWICE DAILY WITH A FULL GLASS OF WATER 56 tablet 1 06/21/20 25 Active predniSONE (Deltasone) 20 MG tabletIndication s:Asthma Take 2 tablets (40 mg) by mouth Once per day for 3 days, THEN 1 tablet (20 mg) Once per day for 2 days, THEN 0.5 tablets (10 mg) Once per day for 2 days. 9 tablet 06/21/20 25 025 Active Problems Problem Noted Date Diagnosed Date [...] pulmonary nodules. He used to have a Public Improvement Inspector at [facility]. Dr. Campoverde last note from 02/2021, I counseled about smoking cessation again. I have refilled his Incruse Ellipta, Symbicort and Albuterol He used to be under the care of Public Improvement Inspector Dr Rafael Vinson at [facility] . Last visit he told me he wanted to go to [facility] instead. Referral was placed Last PFTs [...] pulmonary nodules. He used to have a Public Improvement Inspector at [facility]. Dr. Campoverde last note from 02/2021, I counseled about smoking cessation again. I have refilled his Incruse Ellipta, Symbicort and Albuterol He used to be under the care of Public Improvement Inspector Dr Rafael Vinson at [facility] . Last visit he told me he wanted to go to [facility] instead. Referral was placed Last PFTs [...] pulmonary nodules. He used to have a Public Improvement Inspector at [facility]. Dr. Campoverde last note from 02/2021, I counseled about smoking cessation again. I have refilled his Incruse Ellipta, Symbicort and Albuterol He used to be under the care of Public Improvement Inspector Dr Rafael Vinson at [facility] . Today he tells me he would like to go to [facility] instead Last PFTs 12/03/2023 showed Mod emphysema with bronchodilator response Today with c/o productive cough and wheezing Office Visit on 12/21/2024 Component Date Value Rapid COVID Ag 12/21/2024 Negative QC Media Lot # 12/21/2024 [id number] Lot# Expiration Date 12/21/[phone] Influenza A 12/21/2024 Negative QC Media Lot # 12/21/2024 [id number] Lot# Expiration Date 12/21/2024 [phone] Influenza B 12/21/2024 Negative QC Media Lot # 12/21/2024 [id number] Lot# Expiration Date 12/21/2024 [id number] Plan: Prednisone taper, Z-pack Referred to [facility] Assessment & Plan (01/04/2024 1:40 PM EDT): Patient is here for a follow up. He is still smoking CT of chest 11/14/2019 showed Emphysema (mild) and multiple pulmonary nodules. He used to have a Public Improvement Inspector at [facility]. Dr. Campoverde last note from 02/2021, [...] year repeat recommended Under the care of Public Improvement Inspector Dr Rafael Vinson at [facility] Assessment & Plan (09/16/2023 1:33 PM EST): Patient is here for a follow up. He is still smoking half a pack per day CT of chest 11/14/2019 showed Emphysema (mild) and multiple pulmonary nodules. He used to have a Public Improvement Inspector at [facility]. Dr. Campoverde last note from 02/2021, [...] Plan: Will refer to Pulmonology today at [facility] Assessment & Plan (02/09/2023 9:18 AM EDT): Patient is here for a follow up.He is still smking half a pack per day and denies any recent exacerbations CT of chest 11/14/2019 showed Emphysema (mild) and multiple pulmonary nodules. He used to have a Public Improvement Inspector at [facility]. Dr. Campoverde last note from 02/2021, But [...] he tells me he was living in [facility], but then proceeds to tell me he is seeing a [employer] in [place] but does not know his name and does not recall who sent him there He is still smking half a pack per day and denies any recent exacerbations CT of chest 11/14/2019 showed Emphysema (mild) and multiple pulmonary nodules. He used to have a Public Improvement Inspector at [facility]. Dr. Campoverde last note from 02/2021, But [...] to do the Cologuard and he agreed [facility] health care 12/17/2022 Assessment & Plan (03/22/2025 [...] year repeat recommended Most recent 05/19/2024 at [facility]: [facility] 2 1 year follow [...] Encounters Date Type Department Care Team Description 07/23/[address] [address] Emmanuel Mccarthy MD Prior Authorization 07/17/[address] [address] Emmanuel Mccarthy MD September recall 07/13/2025 Orders Only GENERIC EXTERNAL DATA DEPARTMENT Provider, Generic External Data 06/21/2025 11:15 AM EDT Office Visit [address] [address] Emmanuel Mccarthy MD Abnormality of esophagus (Primary Dx); Tobacco dependence syndrome; Elevated PSA; Chronic obstructive pulmonary disease with acute exacerbation (CMS/HCC) (HCC); Depressed mood 06/21/2025 Travel 06/20/[address] [address] Emmanuel Mccarthy MD chart prep 06/05/2025 Orders Only [facility] [address] [place] [address] [phone] Provider, MD Reynaldo from Last 3 Months [...] 06/21/2025 11:26 AM EDT Plan of Treatment Upcoming Encounters Date Type Department Care Team (Late st Contact Info) Description 10/04/2025 1:15 PM EST Office Visit [facility] [address] [facility] [place] [address] Emmanuel Mccarthy MD [address] [facility] [place] [address] Health Maintenance Due Date Last Done Comments [...] Procedure Name Priority Date/Time Associated Diagnosis Comments FL ESOPHAGUS BARIUM SWALLOW Routine 07/16/2025 10:09 AM EDT PSA, FREE AND TOTAL Routine 07/13/2025 5 :37 PM EDT PSA, TOTAL WITH REFLEX TO PSA, FREE [...] Recently Relevant to Health Maintenance Results * FL Esophagus Barium Swallow (07/16/2025 10:09 AM EDT) Anatomical Region Laterality Modality Head, Neck Radiographic Ariana ging 07/16/2025 10:0 9 AM EDT Narrative 07/16/2025 12:13 PM EDT [place] [address] Fluoroscopy Report Signed Patient: Ronak Gómez MR#: [id number] 03 : 1960 Acct:[id number] Age/Sex: 65 / M ADM Date: 07/16/25 Loc: HO.XRAY Attending Dr: Wendy Badillo MD Ordering Physician: Wendy Badillo MD Date of Service: 07/16/25 Procedure(s): FL barium swallow Accession Number(s): [id number] cc: Emmanuel Hyatt MD; Wendy Badillo MD Reason for Exam: K20.90 - Esophagitis, unspecified without bleeding EXAMINATION: XR BARIUM SWALLOW CLINICAL INFORMATION: Esophagitis. Difficulty swallowing solid food. COMPARISON: None available. TECHNIQUE: Routine upright barium swallow with thick barium and barium coated saltine crackers coated with barium paste and thin barium in prone lying position was performed. FINDINGS: Following oral administration of thick barium there is normal propagation of bolus from the oral cavity through the distal esophagus. There is moderate-sized severe spasm which is intermittently but significantly narrowing the distal esophagus and the GE junction. No laryngeal penetration or aspiration. On oral administration of saltine crackers coated barium paste there is normal oral mastication and propagation of solid food from the oral cavity through the pharynx, esophagus into stomach. On placing patient prone lying and oral administration of thin barium there is good distention of the entire esophagus without any intraluminal filling defect or extrinsic compression. A small sliding hiatal hernia is suspected. FLUOROSCOPY TIME: 3 minutes and 14 seconds. DOSE AREA PRODUCT: 1751 uGy-m2 (microgray-meter squared) FL/FL barium swallow IMPRESSION: Intermittent high-grade spasm along the distal esophagus. No focal lesion or mass seen. Suspect small sliding hiatal hernia. Electronically signed by: Chetan Peterson MD 07/16/2025 12:11 PM EDT Dictated By: Chetan Peterson MD Signed By: <Electronically signed by Chetan Peterson MD in OV> 07/16/25 1211 DD/ 1009 TD/TT: 07/16/25 1019 Ballistics Expert Forensic: [place] Procedure Note Donotuseinterpreter, Image - 07/16/[address] [address] Fluoroscopy Report Signed Patient: Eleni Gómez#: [id number] 03 : 9Acct:[id number] Age/Sex: 65 / MADM Date: 07/16/25 Loc: HO.XRAY Attending Dr: Wendy Badillo MD Ordering Physician: Wendy Badillo MD Date of Service: 07/16/25 Procedure(s): FL barium swallow Accession Number(s): [id number] cc: Emmanuel Hyatt MD; Wendy Badillo MD Reason for Exam: K20.90 - Esophagitis, unspecified without bleeding EXAMINATION: XR BARIUM SWALLOW CLINICAL INFORMATION: Esophagitis. Difficulty swallowing solid food. COMPARISON: None available. TECHNIQUE: Routine upright barium swallow with thick barium and barium coated saltine crackers coated with barium paste and thin barium in prone lying position was performed. FINDINGS: Following oral administration of thick barium there is normal propagation of bolus from the oral cavity through the distal esophagus. There is moderate-sized severe spasm which is intermittently but significantly narrowing the distal esophagus and the GE junction. No laryngeal penetration or aspiration. On oral administration of saltine crackers coated barium paste there is normal oral mastication and propagation of solid food from the oral cavity through the pharynx, esophagus into stomach. On placing patient prone lying and oral administration of thin barium there is good distention of the entire esophagus without any intraluminal filling defect or extrinsic compression. A small sliding hiatal hernia is suspected. FLUOROSCOPY TIME: 3 minutes and 14 seconds. DOSE AREA PRODUCT: 1751 uGy-m2 (microgray-meter squared) FL/FL barium swallow IMPRESSION: Intermittent high-grade spasm along the distal esophagus. No focal lesion or mass seen. Suspect small sliding hiatal hernia. Electronically signed by: Chetan Peterson MD 07/16/2025 12:11 PM EDT Dictated By: Chetan Peterson MD Signed By: <Electronically signed by Chetan Peterson MD in OV> 07/16/25 1211 DD/ 1009 TD/TT: 07/16/25 1019 Ballistics Expert Forensic: [facility] Exter nal Provider IMG FLUOROSCOPY PROCEDURES Edited Result - Final * (ABNORMAL) PSA, Free and Total (07/13/2025 5:37 PM EDT) PSA, Total 5.0(A) < OR = 4.0 ng/mL [facility] PSA % Free 16(A) >25 % (calc) [facility] Comment: PSA(ng/mL) Free PSA(%) Estimated(x) Probability of Cancer(as%)0-2.5 (*) Approx. 12.6-4.0(1) 0-27(2) 24(3)4.1-10(4) 0-10 56 11-15 28 16-20 20 21-25 16 >or =26 8>10(+) N/A >50References:(1)Letha et al.:Urology 60: 469-474 (2001) (2)Letha et al.:J.Urol 168: 922-925 (2001) Free PSA(%) Sensitivity(%) Specificity(%) < or = 25 85 19 < or = 30 93 9 (3)Catalona et al.:KATIANA 277: 2521-6833 (1996) (4)Catalona et al.:KATIANA 279: 9333-8781 (1997)(x)These estimates vary with age, ethnicity, family history and KATE results.(*)The diagnostic usefulness of % Free PSA has not been established in patients with total PSA below 2.6 ng/mL(+)In men with PSA above 10 ng/mL, prostate cancer risk is determined by total PSA alone.The Total PSA value from this assay system isstandardized against the equimolar PSA standard.The test result will be approximately 20% higherwhen compared to the WHO-standardized Total PSA(Siemens assay). Comparison of serial PSA resultsshould be interpreted with this fact in mind.PSA was performed using the Juan CoulterImmunoassay method. Values obtained from differentassay methods cannot be used interchangeably. PSAlevels, regardless of value, should not be interpretedas absolute evidence of the presence or absence ofdisease.THIS TEST WAS PERFORMED AT:[employer] [place] [phone] JAVIER WINKLER MD PSA, Free 0.8 ng/mL [facility] 07/13/2025 5:37 PM EDT 07/13/2025 5:37 PM EDT us Generic External Data Provider LAB BLOOD ORDERAB LES Final Result [facility] [address] [place] [phone] * (ABNORMAL) PSA, Total With Reflex to PSA, Free (07/13/2025 2:48 PM EDT) PSA,Total (Free>4and<10) 5.92(H) 0.00 - 4.00 ng/mL [facility] Comment:PSA methodology: David Lo i ChemiluminescentMicroparticle Immunoassay (CMIA) 07/13/2025 2:48 PM EDT 07/13/2025 4:07 PM EDT us Generic External Data Provider LAB BLOOD ORDERAB LES Final Result [facility] [address] [place] [address] [phone] * CT Lung Screening Low dose (05/24/2025 8:09 AM EDT) Anatomical Region Laterality Modality Lung Computed Tomogra phy us Historical Provider MD FORBES CT PROCEDURES Final R esult * (ABNORMAL) Lipid Panel with Reflex to Direct LDL (12/18/2022 2:07 PM EDT) Pathologist [facility] Cholesterol, Total 209(H) <200 mg/dL [email or web address] HDL Cholesterol 55 > OR = 40 mg/dL [email or web address] Triglycerides 96 <150 mg/dL [facility] LDL Cholesterol 134(H) mg/dL (calc) [facility] Comment: Reference range: <100 Desirable range <100 mg/dL for primary prevention; <70 mg/dL for patients with CHD or diabetic patients with > or = 2 CHD risk factors. LDL-C is now calculated using the Dilma calculation, which is a validated novel method providing better accuracy than the Friedewald equation in the estimation of LDL-C. Josh RAMIREZ et al. KATIANA. 2013;310(19): 8692-9795 (http://education.Involvio.Kirusa/faq/YRR468) Chol/HDLC Ratio 3.8 <5.0 (calc) [facility] Non-HDL Cholesterol 154(H) <130 mg/dL (calc) [email or web address] Comment: For patients with diabetes plus 1 major ASCVD risk factor, treating to a non-HDL-C goal of <100 mg/dL (LDL-C of <70 mg/dL) is considered a therapeutic option. 12/18/2022 2:07 PM EDT 12/18/2022 2:07 PM EDT Narrative [facility] - 12/19/2022 9:22 AM EDT FASTING:YES FASTING: YES Emmanuel Cash MD LAB BLOOD ORDERABLES Final Result Performing Organization Address [facility]/ZIP Co de Phone Number [address], [facility] [place] [address] [email or web address] [address] [place] [phone] * Hepatitis C Antibody with Reflex to HCV, RNA, Quantitative, Real-Time PCR (12/18/2022 2:07 PM EDT) Hepatitis C Antibody NON-REACT IAIN NON-REACT IAIN [email or web address] Index 0.03 <1.00 [email or web address] Comment: HCV antibody was non-reactive. There is no laboratory evidence of HCV infection. In most cases, no further action is required. However, if recent HCV exposure is suspected, a test for HCV RNA (test code 55563) is suggested. For additional information please refer to http://education.Fliggo/faq/QHD89t5 (This link is being provided for informational/ educational purposes only.) Blood Venous blood specimen / Unknown 12/18/2022 2:07 PM EDT 12/18/2022 2:07 PM EDT Narrative [facility] - 12/19/2022 9:22 AM EDT FASTING:YES FASTING: YES us Emmanuel Cash MD LAB BLOOD ORDERABLES Final Result Performing Organization Address City/[facility]/ZIP Co de Phone Number [address], [place] [address] [facility] [address] [place] [phone] from Last 3 Months or Most Recently Relevant to Health Maintenance Insurance [facility] STANDARD MEDICARE Care Teams Oil Lease Broker Relationship Specialty Start Date End Date Emmanuel Mccarthy MD [address] [place], [place] PCP - General Internal Medicine 07/31/20
--- OUTSIDE RECORDS SUMMARY | 2025-07-25 11:02 | XMS_ITS | Encounter Summary ---
Author Organization [employer] Address [address] [facility] 7t [place] [address] Care Team Providers Care Dextrine Mixer Name Role Phone Emmanuel Mccarthy MD Primary Care Provide r Encounter Details Date Type Department Care Team ([facility] Contact Info) Description 06/05/2025 Orders Only [facility] Management [address] [place], [place] [phone] ProviderReynaldo MD Social History Tobacco Use Types [...] t he electric, gas, oil or water [employer] threatened to shut off services in your [...] Description 10/04/2025 1:15 PM EST Office Visit [facility] [address] [place] [address] Emmanuel Mccarthy MD [address] [place] [address] documented as of this encounter Procedures Procedure [...] documented as of this encounter Care Teams Dextrine Mixer Relationship Specialty Start Date End Date Emmanuel Mccarthy MD [address] [place] [address] PCP - General Internal Medicine 07/31/20 documented as of this encounter
--- OUTSIDE RECORDS SUMMARY | 2025-07-25 11:02 | XMS_ITS | Encounter Summary ---
Author Organization [employer] Address [address] [facility] 7t [place] [address] Care Team Providers Care Cocoa Butter Filter Operator Name Role Phone Emmanuel Mccarthy MD Primary Care Provide r Reason for Visit * Reason Comments Med Refill Encounter Details Date Type Department Care Team ([facility] st Contact Info) Description 09/16/2023 Refill [facility] [address] [place] [phone] Samina Correa MD [address] [place], [place] [phone] COPD exacerbation (CMS/HCC) Social History Tobacco Use [...] Description 10/04/2025 1:15 PM EST Office Visit [facility] [address] [place] [address] Emmanuel Mccarthy MD [address] [place] [address] documented as of this encounter Visit Diagnoses Diagnosis COPD exacerbation (CMS/HCC) (HCC) Obstructive chronic bronchitis with exacerbation documented in this encounter Additional Health Concerns Assessment Noted Time PHQ-9 Depression Total Score: 0 12/18/19 23 2:25 PM EDT documented as of this encounter Care Teams Cocoa Butter Filter Operator Relationship Specialty Start Date End Date Emmanuel Mccarthy MD [address] [place] [address] PCP - General Internal Medicine 07/31/20 documented as of this encounter
--- OUTSIDE RECORDS SUMMARY | 2025-07-25 11:02 | XMS_ITS | Encounter Summary ---
Author Organization [employer] Address [address] [facility] 7t [place] [address] Care Team Providers Care Analysis Manager Name Role Phone Emmanuel Mccarthy MD Primary Care Provide r Encounter Details Date Type Department Care Team (Latest Contact Info) Description 06/26/2019 Abstract [facility] CONVERSIONS Dental, Provider, DDS Social [...] Description 10/04/2025 1:15 PM EST Office Visit [facility]IC[facility] [address] [place] [phone] Emmanuel Mccarthy MD [address] [place] [address] documented as of this encounter Visit Diagnoses Not on filedocumented in this encounter Care Teams Analysis Manager Relationship Specialty Start Date End Date Emmanuel Mccarthy MD [address] [place] [address] [phone] PCP - General Internal Medicine 07/31/20 documented as of this encounter
--- OUTSIDE RECORDS SUMMARY | 2025-07-25 11:02 | XMS_ITS | Clinical Summary ---
Author Organization [facility] [address] [facility] Address [address] [place] [address] Phone Care Team Providers Care Global Program Manager Name Role Phone Emmanuel Hyatt MD Primary Care Provi paz Encounters Date Type Department Care Team Description 05/24/2025 11:09 AM EDT - 05/24/2025 11:59 PM EDT Hospital Encounter [facility] CT Scan [address] [place] [address] Encounter for screening for malignant neoplasm of respiratory organs; Nicotine dependence, cigarettes, uncomplicated Discharge Disposition: Home or Self Care 04/27/2025 Telephone Lung Screening Program - [address] [place] [address] Audrey Mattson MA from Last 3 Months Surgical History Surgery Date Site/Laterality Comments OTHER SURGICAL HISTORY 2007 Bilateral PROCEDURE: WI XCAPSL CTRC RMVL INSJ IO LENS PROSTH CPLX WO ECP Medical History Medical History Date Comments Back pain DX:Back pain COPD (chronic obstructive pu lmonary disease) (CMS/HCC V24, CMS/HCC V28) DX:COPD (chronic o bstructive pulmonary disease) ([facility]) Pulmonary nodules DX:Pulmonary n odules [...] Chest CT in 6 months. [facility] [place] ([id number]) -------- FINAL REPORT -------- Dictated By: Daniela Edmonds Dictated Date: 06/04/2025 10:46 ET Assigned Physician: Daniela Edmonds Reviewed and Electronically Signed By: Daniela Edmonds Signed Date: 06/04/2025 10:59 ET Workstation ID: [id number] Transcribed By: Self Edit Transcribed Date: 06/04/2025 10:46 ET Narrative 06/04/2025 10:59 AM EDT History: 65 year-old 58 pack-year current smoker, asymptomatic, for lung cancer screening. Comparison: 05/19/24 Technique: Helical volumetric imaging of the thorax was performed, using low- dose technique, without IV contrast. DLP: 122.04 mGy/cm CTDIvol: 3.22 mGy [facility] VCT Iterative reconstruction technique Findings: Lungs and [...] contrast. DLP: 122.04 mGy/cm CTDIvol: 3.22 mGy [facility] VCT Iterative reconstruction technique Findings: Lungs and [...] Chest CT in 6 months. [facility] JOYCE ([id number]) -------- FINAL REPORT -------- Dictated By: Daniela Edmonds Dictated Date: 06/04/2025 10:46 ET Assigned Physician: Daniela Edmonds Reviewed and Electronically Signed By: Daniela Edmonds Signed Date: 06/04/2025 10:59 ET Workstation ID: [id number] Transcribed By: Self Edit Transcribed Date: 06/04/2025 10:46 ET Lisbet Morse MD IMG CT PROCEDURES Final Result from Last 3 Months Insurance MEDICAID - [place] MEDICARE Care Teams Global Program Manager Relationship Specialty Start Date End Date Emmanuel Hyatt MD [address] [place] [address] [facility] [place] [phone] PCP - General 09/21/23
--- OUTSIDE RECORDS SUMMARY | 2025-07-25 11:02 | XMS_ITS | Encounter Summary ---
Author Organization [email or web address] Address [address] [place] [address] Care Team Providers Care Real Time Operator Name Role Phone Emmanuel Mccarthy MD Primary Care Provide r Reason for Visit * Reason Onset Date Comments Prior Authorization 07/23/2025 Encounter Details Date Type Department Care Team ([facility] Contact Info) Description 07/23/2025 Telephone [facility] [address] [place] [address] Emmanuel Mccarthy MD [address] [place] [address] Prior Authorization Social History Tobacco Use Types Packs/Day Years [...] encounter Miscellaneous Notes * Telephone Encounter - Ijeoma Scanlon - 07/23/2025 11:46 AM EST PA request received for albuterol nebulizer solution. Per [facility] pharmacist/Gerardo, medication covered byMedicare part B plan therefore Med B form generated and sent to pcp for review and signature via [employer]. Once signed, will be faxed to [facility] pharmacy and sent to scan. documented in this encounter Plan of Treatment Upcoming Encounters Date Type Department Care Team (Late st Contact Info) Description 10/04/2025 1:15 PM EST Office Visit [facility] [address] [place] [address] Emmanuel Mccarthy MD [address] [place] [address] documented as of this encounter Visit Diagnoses Not on filedocumented in this encounter Additional Health Concerns Assessment Noted Time PHQ-9 Depression Total Score: 7 06/21/20 11:27 AM EDT documented as of this encounter Care Teams Real Time Operator Relationship Specialty Start Date End Date Emmanuel Mccarthy MD [address] [place] [id number] PCP - General Internal Medicine 07/31/20 documented as of this encounter
== END 2025-07-25 10:26 | disposition home or self-care (01) ==
PROVIDERS: PCP Internal Medicine; Visit Provider Internal Medicine
DX: R13.10 Dysphagia, unspecified (principal); K22.4 Dyskinesia of esophagus; J44.89 Other specified chronic obstructive pulmonary disease; F17.200 Nicotine dependence, unspecified, uncomplicated
CPT/HCPCS: 99214; G2211

== ENCOUNTER 2025-07-25 13:54 | Outpatient (REF) | payer MEDICARE, MEDICAID, SELFPAY ==
--- NOTE | ~2025-07-25 | US_ITS ---
CLINICAL HISTORY: R97.20 - Elevated prostate specific antigen [PSA] US Renal Comparison: None provided Findings: Right kidney is 9.5 cm in length. Increased echogenicity of the right kidney. Left kidney is 9.7 cm in length. Increased echogenicity of the left kidney. No hydronephrosis. Normal color Doppler. Urinary bladder is full. Prevoid urinary bladder volume of 331 mL. Postvoid urinary bladder volume of 30 mL. Bilateral ureteral jets are visualized. Multiple Bilateral echogenic foci in the kidneys which do not demonstrate shadowing or twinkle and may be due to fat. Prostate volume of 30 mL which is at the upper limits of normal. Evidence of chronic bilateral renal disease. IMPRESSION: 1. Prostate volume of 30 mL which is at the upper limits of normal. 2. Evidence of chronic bilateral renal disease. 3. No hydronephrosis. This document has been electronically signed by: Den Anders DO on 07/26/2025 11:05:15
== END 2025-07-25 13:55 | disposition home or self-care (01) ==
LOC: HO.HMGCX 13:54
PROVIDERS: PCP Internal Medicine; Visit Provider Nurse Practitioner Family
DX: R13.10 Dysphagia, unspecified (principal); R97.20 Elevated prostate specific antigen [PSA]; K22.4 Dyskinesia of esophagus; J44.89 Other specified chronic obstructive pulmonary disease; F17.210 Nicotine dependence, cigarettes, uncomplicated; Z12.11 Encounter for screening for malignant neoplasm of colon
CPT/HCPCS: 76770; 99212

== ENCOUNTER → 2025-07-25 13:56 | Outpatient (BNV) | payer MEDICARE, MEDICAID, SELFPAY | PROVIDERS: PCP Internal Medicine; Visit Provider Family Medicine | DX: R97.20 Elevated prostate specific antigen [PSA] (principal) | CPT/HCPCS: 76770 ==

== ENCOUNTER 2025-07-31 14:44 | Outpatient (AMB) | payer MEDICARE, MEDICAID, SELFPAY ==
--- NOTE | 2025-07-31 14:57 | A.OFFVIS_ITS ---
Intake Visit Reasons: 1.5 MO WITH TOTAL PSA AND US Intake Note: Patient is present for 1.5M PSA/US Urology Medication:NONE Antibiotic Allergy:NONE Blood Thinner:NONE Government Minister Required: No Allergies No Known Allergies (No Known Allergies*) Allergy (Verified 07/31/25 21:05) Medication List - Last Reconciled 07/31/25 by COLIN RodrigezP- albuterol sulfate 90 mcg/actuation (Ventolin HFA) inhalation budesonide-formoterol 160-4.5 mcg/actuation (Symbicort) inhalation eejvnybddwu-jduuzcaax-nvuablyu 200-62.5-25 mcg (Trelegy Ellipta) 1 inh inhalation DAILY 30 days omeprazole 20 mg PO DAILY umeclidinium 62.5 mcg/actuation (Incruse Ellipta) 1 inh inhalation DAILY varenicline tartrate 1 mg PO BID vit C,I-Er-tdjtv-lutein-zeaxan 250-90-40-1 mg (PreserVision AREDS-2) 1 cap PO BID HPI Comments Details: Ronak is a pleasant 65-year-old male patient of . He has a past medical history of pulmonary nodules, tobacco dependence, asthma- COPD overlap syndrome, and esophagitis. He presents to the office today for follow-up. Of note, patient was seen approximately 2 months ago as a new patient for an elevated PSA at which time a retroperitoneal ultrasound and redraw of PSA were ordered for further assessment evaluation. These results were reviewed and communicated with the patient today. 08/14 bilateral kidneys with no hydronephrosis. The urinary bladder is full. Postvoid bladder volume 30 mL. Evidence of chronic bilateral renal disease. Prostate volume of 30 mL. PSAs are as follows: PSA: 04/13 5.3, 04/13 4.3, 07/14 5.6 % free PSA 16% We did discuss at length potential causes of elevated PSA as well as labile PSA. KATE was offered however deferred. He does not believe he has a family history of prostate cancer. He denies any bothersome urinary issues or concerns. He denies urinary urgency, urinary frequency, incontinence, nocturia, hematuria, dysuria, foul smelling urine, changes to urinary stream, flank pain, fever, and or chills. He is happy with his current voiding parameters. He does discuss his main concern is ongoing respiratory issues with COPD. We discussed further workup and risks and benefits of these interventions. All questions were answered. He otherwise offers no other issues or concerns at this time. [facility] Medical History Pulmonary nodules Tobacco dependence Asthma-COPD overlap syndrome COPD (chronic obstructive pulmonary disease) Esophagitis Surgical History Hx of bilateral cataract extraction Family History Paternal Grandfather Colon cancer Social History Household Members: Family Alcohol intake: current Alcohol intake frequency: holidays/special occasions only Patient Tobacco Use Status: Current everyday Tobacco user Cigarette Packs Per Day: 0.5 Cigarettes Per Day: 10 Years Smoked: 30 + Substance Use Type: Marijuana Review of Systems Const All systems reviewed & are unremarkable except as noted in HPI and below Physical Exam Const General: cooperative, healthy appearing, comfortable, no acute distress, well developed, alert and awake Orientation/consciousness: patient oriented x3 Limitations: no limitations HEENT Head: Yes normal to inspection, Yes normocephalic and Yes atraumatic Ears: hearing grossly normal bilaterally Eyes General: appearance normal, both eyes and all related structures Neck Neck: Yes normal visual inspection and Yes trachea midline Chest Chest palpation & inspection: normal inspection of the chest Resp Effort & Inspection: normal respiratory effort and able to speak in complete sentences Cardio Rate: regular rate GI Inspection: Yes normal to inspection General: Yes no CVA tenderness Back/Spine/Pelvis Back: no CVA tenderness Skin General skin exam: no rashes or lesions noted Neuro General: patient oriented x3 Extrem General: Yes normal to inspection Psych Appearance: grossly normal and well kempt Mental Status: mental status grossly normal Speech and movement: Normal speech and movement present and Clear speech present Affect: normal affect Attitude: cooperative Thought process: Normal thought process present Thought content: Normal thought content present Insight: Fair insight present (Psych) Judgement: Fair judgement present (Psych) Results AMB Urinalysis, Automated UA Leukoctes 0 Gene/uL Last Edit by JOLENE Ramirez on 07/31/25 16:31 UA Nitrite Negative Last Edit by Jefferson Fiore [facility] on 07/31/25 16:31 UA Urobilinogen 0.2 mg/dL Last Edit by Jefferson Fiore [facility] on 07/31/25 16:3 1 UA Protein 15 mg/dL Last Edit by Jefferson Fiore [facility] on 07/31/25 16:31 UA pH 6.0 Last Edit by Jefferson Fiore [facility] on 07/31/25 16:31 UA Blood 0 Alexx/uL Last Edit by Jefferson Fiore [facility] on 07/31/25 16:31 UA Specific [place] 1.025 Last Edit by Jefferson Fiore [facility] on 07/31/25 16: 31 UA Ketone Negative Last Edit by Jefferson Fiore [facility] on 07/31/25 16:31 UA Bilirubin 0 mg/dL Last Edit by Jefferson Fiore [facility] on 07/31/25 16:31 UA Glucose 0 mg/dL Last Edit by Jefferson Fiore [facility] on 07/31/25 16:31 Results Reviewed Results Reviewed: Laboratory Last Values Urine pH (Auto) 6.0 07/31/25 16:30 Specific [place] (Auto) 1.025 07/31/25 16:30 Urine Protein (Auto) 15 mg/dL 07/31/25 16:30 Glucose (UA)(Auto) 0 mg/dL 07/31/25 16:30 Urine Ketones (Auto) Negative 07/31/25 16:30 Urine Blood (Auto) 0 Alexx/uL 07/31/25 16:30 Urine Nitrite (Auto) Negative 07/31/25 16:30 Urine Bilirubin (Auto) 0 mg/dL 07/31/25 16:30 Urine Urobilinogen (Auto) 0.2 mg/dL 07/31/25 16:30 Leukocyte Esterase (Auto) 0 Gene/uL 07/31/25 16:30 Date of Service: 07/25/25 Procedure(s): US retroperitoneal comp Findings: Right kidney is 9.5 cm in length. Increased echogenicity of the right kidney. Left kidney is 9.7 cm in length. Increased echogenicity of the left kidney. No hydronephrosis. Normal color Doppler. Urinary bladder is full. Prevoid urinary bladder volume of 331 mL. Postvoid urinary bladder volume of 30 mL. Bilateral ureteral jets are visualized. Multiple Bilateral echogenic foci in the kidneys which do not demonstrate shadowing or twinkle and may be due to fat. Prostate volume of 30 mL which is at the upper limits of normal. Evidence of chronic bilateral renal disease. IMPRESSION: 1. Prostate volume of 30 mL which is at the upper limits of normal. 2. Evidence of chronic bilateral renal disease. 3. No hydronephrosis. Assessment & Plan Assessment & Plan (1) Elevated PSA: Code(s): R97.20 - Elevated prostate specific antigen [PSA] Category: Medical Plan In office urinalysis results reviewed with the patient today; as noted above. KATE was offered however deferred. We did discuss and review potential causes of elevated PSA as well as further treatment options and risks and benefits of these treatment options. All questions were answered. Will redraw of PSA with no sex the night before, no caffeine morning of, and no heavy lifting 1-2 days prior. Will also obtain MRI of the prostate for further assessment evaluation. He currently denies any bothersome urinary issues or concerns. He reports be happy with current voiding parameters. Follow-up in 1-3 months with imaging and labs; or sooner with any issues, concerns, and or questions. Orders: Orders PSA,Total (Free>4and<10) Today R97.20 - Elevated prostate specific antigen [PSA] AMB Urinalysis Automated Today Z13.9 - Encounter for screening, unspecified MR Prostate wo/w con Today R97.20 - Elevated prostate specific antigen [PSA] Patient Instructions: The patient had an opportunity to ask questions regarding the treatment plan. All questions were answered. Physical exam, labs, and imaging were discussed and reviewed in detail. As well as risks, benefits, and discussion of treatment choices. No major barriers to understanding were identified. The patient expressed understanding and agreement with the above treatment plan. The patient was made aware they should contact our office by phone for worsening of their current condition, the appearance of new symptoms, or with any questions or concerns. Compliance is encouraged with any medications and follow up testing that is ordered. It is a privilege to be allowed the opportunity to participate in? your urological care.? Again, if you have any questions or concerns If you have any questions or concerns please do not hesitate to contact me. The office is [phone]. This note is constructed using voice recognition software. While every effort has been made to ensure accuracy fur tanner errors may have been included. Yours sincerely, MIRTA Rodrigez-MARINO Coding Level of Care Code Est Pt Level 3 (50319) Complex EM visit Add On G2211 Diagnoses Elevated PSA R97.20
--- OUTSIDE RECORDS SUMMARY | 2025-07-31 16:30 | XMS_ITS | Clinical Summary ---
Author Organization [employer] Address [address] [facility] 7t [place] [address] Care Team Providers Care Plumbing Service Technician Name Role Phone Emmanuel Mccarthy MD Primary [...] with evening meal. 60 tablet 3 Active albuterol (2.5 MG/3ML) 0.083% nebulizer solutionIndicati [...] endoscopy to rule out malignancy Seen by 06/30/2023 they recommended EGD. Pt missed the appointment. Finally see by 03/26/2025 they recommended to repeat a Barium [...] endoscopy to rule out malignancy Seen by 06/30/2023 they recommended EGD. Pt missed the [...] endoscopy to rule out malignancy Seen by 06/30/2023 they recommended EGD. Pt missed the [...] endoscopy to rule out malignancy Seen by 06/30/2023 they recommended EGD. Pt missed the [...] pulmonary nodules. He used to have a Silk Screen Etcher at [facility]. Dr. Campoverde last note from 02/2021, I counseled about smoking cessation again. I have refilled his Incruse Ellipta, Symbicort and Albuterol He used to be under the care of Silk Screen Etcher Dr Rafael Vinson at [facility] . Last visit he told me he wanted to go to [facility] Pulmonology instead. Referral was placed Last PFTs [...] pulmonary nodules. He used to have a Silk Screen Etcher at [facility]. Dr. Campoverde last note from 02/2021, I counseled about smoking cessation again. I have refilled his Incruse Ellipta, Symbicort and Albuterol He used to be under the care of Silk Screen Etcher Dr Rafael Vinson at [facility] . Last visit he told me he wanted to go to [facility] Pulmonology instead. Referral was placed Last PFTs [...] pulmonary nodules. He used to have a Silk Screen Etcher at [facility]. Dr. Campoverde last note from 02/2021, I counseled about smoking cessation again. I have refilled his Incruse Ellipta, Symbicort and Albuterol He used to be under the care of Silk Screen Etcher Dr Rafael Vinson at [facility] . Today he tells me he would like to go to [facility] Pulmonology instead Last PFTs 12/03/2023 showed Mod emphysema with bronchodilator response Today with c/o productive cough and wheezing Office Visit on 12/21/2024 Component Date Value Rapid COVID Ag 12/21/2024 Negative QC Media Lot # 12/21/2024 [id number] Lot# Expiration Date 12/21/2024 [id number] Influenza A 12/21/2024 Negative QC Media Lot # 12/21/2024 [id number] Lot# Expiration Date 12/21/2024 [id number] Influenza B 12/21/2024 Negative QC Media Lot # 12/21/2024 [id number] Lot# Expiration Date 12/21/2024 [id number] Plan: Prednisone taper, Z-pack Referred to [facility] Pulmonology Assessment & Plan (01/04/2024 1:40 PM EDT): Patient is here for a follow up. He is still smoking CT of chest 11/14/2019 showed Emphysema (mild) and multiple pulmonary nodules. He used to have a Silk Screen Etcher at [facility]. Dr. Campoverde last note from 02/2021, But [...] year repeat recommended Under the care of Silk Screen Etcher Dr Rafael Vinson at [facility] Assessment & Plan (09/16/2023 1:33 PM EST): Patient is here for a follow up. He is still smoking half a pack per day CT of chest 11/14/2019 showed Emphysema (mild) and multiple pulmonary nodules. He used to have a Silk Screen Etcher at [facility]. Dr. Campoverde last note from [...] Plan: Will refer to Pulmonology today at [facility] Assessment & Plan (02/09/2023 9:18 AM EDT): Patient is here for a follow up.He is still smking half a pack per day and denies any recent exacerbations CT of chest 11/14/2019 showed Emphysema (mild) and multiple pulmonary nodules. He used to have a Silk Screen Etcher at [facility]. Dr. Campoverde last note from [...] he tells me he was living in [facility], but then proceeds to tell me he is seeing a Master Brewer in [place] but does not know his name and does not recall who sent him there He is still smking half a pack per day and denies any recent exacerbations CT of chest 11/14/2019 showed Emphysema (mild) and multiple pulmonary nodules. He used to have a Silk Screen Etcher at [facility]. Dr. Campoverde last note from [...] year repeat recommended Most recent 05/19/2024 at [facility]: [facility] 2 1 year follow [...] Type Department Care Team Description 07/23/2025 Telephone [facility] [address] [place] [phone] Emmanuel Mccarthy MD Prior Authorization 07/17/2025 Telephone [facility] [address] [place] [address] Emmanuel Mccarthy MD September recall 07/13/2025 Orders Only GENERIC EXTERNAL DATA DEPARTMENT Provider, Jack External Data 06/21/2025 11:15 AM EDT Office Visit [facility] [address] [place] [address] Emmanuel Mccarthy MD Abnormality of esophagus (Primary Dx); Tobacco dependence syndrome; Elevated PSA; Chronic obstructive pulmonary disease with acute exacerbation (CMS/HCC) (HCC); Depressed mood 06/21/2025 Travel 06/20/2025 Telephone [facility] [address] [place] [address] Emmanuel Mccarthy MD chart prep 06/05/2025 Orders Only [facility] [address] [place] [address] ProviderReynaldo MD from Last 3 Months Immunizations Immunization Administration [...] Description 10/04/2025 1:15 PM EST Office Visit [facility] [address] [place], [place] [phone] Emmanuel Mccarthy MD [address] [place], [place] [phone] Health Maintenance Due Date Last Done Comments [...] Procedure Name Priority Date/Time Associated Diagnosis Comments US RETROPERITONEAL COMPLETE Routine 07/26/2025 11:05 AM EST FL ESOPHAGUS BARIUM SWALLOW Routine 07/16/2025 10:09 [...] Recently Relevant to Health Maintenance Results * US Retroperitoneal Complete (07/26/2025 11:05 AM EST) Anatomical Region Laterality Modality Ultrasound 07/26/2025 11:0 5 AM EST Narrative 07/26/2025 11:06 AM EST [facility] Primary Care [address] [place] [address] Dr. Rodriguez, [place]LENA [address] Ultrasound Report Signed Patient: Ronak Gómez MR#: [id number] 03 : 1960 Acct:[id number] Age/Sex: 65 / M ADM Date: 07/25/25 Loc: HO.HMGCX Attending Dr: Keli LEONG Ordering Physician: Keli Miguel Date of Service: 07/25/25 Procedure(s): US retroperitoneal comp Accession Number(s): [id number] cc: Emmanuel Hyatt MD; Keli Miguel Reason for Exam: R97.20 - Elevated prostate specific antigen [PSA] CLINICAL HISTORY: R97.20 - Elevated prostate specific antigen [PSA] US Renal Comparison: None provided Findings: Right kidney is 9.5 cm in length. Increased echogenicity of the right kidney. Left kidney is 9.7 cm in length. Increased echogenicity of the left kidney. No hydronephrosis. Normal color Doppler. Urinary bladder is full. Prevoid urinary bladder volume of 331 mL. Postvoid urinary bladder volume of 30 mL. Bilateral ureteral jets are visualized. Multiple Bilateral echogenic foci in the kidneys which do not demonstrate shadowing or twinkle and may be due to fat. Prostate volume of 30 mL which is at the upper limits of normal. Evidence of chronic bilateral renal disease. IMPRESSION: 1. Prostate volume of 30 mL which is at the upper limits of normal. 2. Evidence of chronic bilateral renal disease. 3. No hydronephrosis. This document has been electronically signed by: Den Anders DO on 07/26/2025 11:05:15 Dictated By: Den Anders DO Signed By: <Electronically signed by Den Anders DO in OV> 07/26/25 1106 DD/ 1105 TD/TT: 07/26/25 1105 Energy Trader: Procedure Note Donotuseinterpreter, Image - 07/26/2025 [facility] Adult Primary Care [facility] [address] Ultrasound Report Signed Patient: Eleni Gómez#: [id number] 03 : 9Acct:[id number] Age/Sex: 65 / MADM Date: 07/25/25 Loc: .HMGCX Attending Dr: Keli LEONG Ordering Physician: Keli Miguel Date of Service: 07/25/25 Procedure(s): US retroperitoneal comp Accession Number(s): [id number] cc: Emmanuel Hyatt MD; Keli Miguel Reason for Exam: R97.20 - Elevated prostate specific antigen [PSA] CLINICAL HISTORY: R97.20 - Elevated prostate specific antigen [PSA] US Renal Comparison: None provided Findings: Right kidney is 9.5 cm in length. Increased echogenicity of the right kidney. Left kidney is 9.7 cm in length. Increased echogenicity of the left kidney. No hydronephrosis. Normal color Doppler. Urinary bladder is full. Prevoid urinary bladder volume of 331 mL. Postvoid urinary bladder volume of 30 mL. Bilateral ureteral jets are visualized. Multiple Bilateral echogenic foci in the kidneys which do not demonstrate shadowing or twinkle and may be due to fat. Prostate volume of 30 mL which is at the upper limits of normal. Evidence of chronic bilateral renal disease. IMPRESSION: 1. Prostate volume of 30 mL which is at the upper limits of normal. 2. Evidence of chronic bilateral renal disease. 3. No hydronephrosis. This document has been electronically signed by: Den Anders DO on 07/26/2025 11:05:15 Dictated By: Den Anders DO Signed By: <Electronically signed by Den Anders DO in OV> 07/26/25 1106 DD/ 110 TD/TT: 07/26/25 110 Energy Trader: us [facility] External Provider IMG US PROCEDURES Final Result * FL Esophagus Barium Swallow (07/16/2025 10:09 AM EDT) Anatomical Region Laterality Modality Head, Neck Radiographic Ariana ging 07/16/2025 10:0 9 AM EDT Narrative 07/16/2025 12:13 PM EDT [place] [address] Fluoroscopy Report Signed Patient: Ronak Gómez MR#: [id number] [birth year] : 1960 Acct:[id number] Age/Sex: 65 / M ADM Date: 07/16/25 Loc: HO.XRAY Attending Dr: Wendy Badillo MD Ordering Physician: Wendy Badillo MD Date of Service: 07/16/25 Procedure(s): FL barium swallow Accession Number(s): [id number] cc: Emmanuel Hyatt MD; Wendy Badillo MD [...] Chetan Peterson MD 07/16/2025 12:11 PM EDT RP Dictated By: Chetan Peterson MD Signed By: <Electronically signed by Chetan Peterson MD in OV> 07/16/25 1211 DD/ 1009 TD/TT: 07/16/25 1019 Energy Trader: SUGEY Procedure Note Donotuseinterpreter, Image - 07/16/2025 [place] [address] Fluoroscopy Report Signed Patient: Eleni Gómez#: [id number] 03 : 1960cct:[id number] Age/Sex: 65 / MADM Date: 07/16/25 Loc: HO.XRAY Attending Dr: Wendy Badillo MD Ordering Physician: Wendy Badillo MD Date of Service: 07/16/25 Procedure(s): FL barium swallow Accession Number(s): [id number] cc: Emmanuel Hyatt MD; Wendy aBdillo MD Reason for Exam: K20.90 - Esophagitis, [...] 07/16/25 1211 DD/ 1009 TD/TT: 07/16/25 1019 Energy Trader: SUGEY [facility] Exter nal Provider IMG FLUOROSCOPY PROCEDURES Edited Result - Final * (ABNORMAL) PSA, Free and Total (07/13/2025 5:37 PM EDT) PSA, Total 5.0(A) < OR = 4.0 ng/mL [facility] PSA % Free 16(A) >25 % (calc) [facility] Comment: PSA(ng/mL) Free PSA(%) Estimated(x) Probability of Cancer(as%)0-2.5 (*) Approx. 12.6-4.0(1) 0-27(2) 24(3)4.1-10(4) 0-10 56 11-15 28 16-20 20 21-25 16 >or =26 8>10(+) N/A >50References:(1)Letha et al.:Urology 60: 469-474 (2001) (2)Letha et al.:J.Urol 168: 922-925 (2001) Free PSA(%) Sensitivity(%) Specificity(%) < or = 25 85 19 < or = 30 93 9 (3)Catalona et al.:KATIANA 277: 2819-5827 (1996) (4)Catalona et al.:KATIANA 279: 6216-9566 (1997)(x)These estimates vary with age, ethnicity, family [...] presence or absence ofdisease.THIS TEST WAS PERFORMED AT:[facility] [place] [phone] JAVIER WINKLER MD PSA, Free 0.8 ng/mL [facility] 07/13/2025 5:37 PM EDT 07/13/2025 5:37 PM EDT us Generic External Data Provider LAB BLOOD ORDERAB LES Final Result [facility] [address] [place] [address] [phone] * (ABNORMAL) PSA, Total With Reflex to PSA, Free (07/13/2025 2:48 PM EDT) PSA,Total (Free>4and<10) 5.92(H) 0.00 - 4.00 ng/mL [facility] Comment:PSA methodology: Abb tatyana Aliadwoaty i ChemiluminescentMicroparticle Immunoassay (CMIA) 07/13/2025 2:48 PM EDT 07/13/2025 4:07 PM EDT us Generic External Data Provider LAB BLOOD ORDERAB LES Final Result [facility] [address] [place] [phone] * CT Lung Screening Low dose (05/24/2025 8:09 AM EDT) Anatomical Region Laterality Modality Lung Computed Tomogra phy Historical Provider MD FORBES CT PROCEDURES Final R esult * (ABNORMAL) Lipid Panel with Reflex to Direct LDL (12/18/2022 2:07 PM EDT) Cholesterol, Total 209(H) <200 mg/dL [facility] HDL Cholesterol 55 > OR = 40 mg/dL [facility] Triglycerides 96 <150 mg/dL [facility] LDL Cholesterol 134(H) mg/dL (calc) [facility] Comment: Reference range: <100 Desirable range <100 mg/dL for primary prevention; <70 mg/dL for patients with CHD or diabetic patients with > or = 2 CHD risk factors. LDL-C is now calculated using the Josh-Rose calculation, which is a validated novel method providing better accuracy than the Friedewald equation in the estimation of LDL-C. Josh RAMIREZ et al. KATIANA. 2013;310(19): 1217-4585 (http://education.[employer].StackSearch/faq/HES178) Chol/HDLC Ratio 3.8 <5.0 (calc) [facility] Non-HDL Cholesterol 154(H) <130 mg/dL (calc) [facility] Comment: For patients with diabetes plus 1 major ASCVD risk factor, treating to a non-HDL-C goal of <100 mg/dL (LDL-C of <70 mg/dL) is considered a therapeutic option. 12/18/2022 2:07 PM EDT 12/18/2022 2:07 PM EDT Narrative Chain - 12/19/2022 9:22 AM EDT FASTING:YES FASTING: YES Result [facility] Emmanuel Cash MD LAB BLOOD ORDERABLES Final Result Performing Organization Address City/[facility]/ZIP Co de Phone Number [facility] [address] [place] [address], [facility] [place] [address] [facility] [address] [place] [phone] * Hepatitis C Antibody with Reflex to HCV, RNA, Quantitative, Real-Time PCR (12/18/2022 2:07 PM EDT) Hepatitis C Antibody NON-REACT IAIN NON-REACT IAIN [facility] Index 0.03 <1.00 [facility] [employer] Comment: HCV antibody was non-reactive. There is no laboratory evidence of HCV infection. In most cases, no further action is required. However, if recent HCV exposure is suspected, a test for HCV RNA (test code 70831) is suggested. For additional information please refer to http://education.YouBeQB/faq/ETA69d3 (This link is being provided for informational/ educational purposes only.) Blood Venous blood specimen / Unknown 12/18/2022 2:07 PM EDT 12/18/2022 2:07 PM EDT Narrative [facility] - 12/19/2022 9:22 AM EDT FASTING:YES FASTING: YES Emmanuel Cash MD LAB BLOOD ORDERABLES Final Result Performing Organization Address City/[facility]/ZIP Co de Phone Number [address], [place] [address] [facility] [address] [place] [phone] from Last 3 Months or Most Recently Relevant to Health Maintenance Insurance [facility] STANDARD MEDICARE Care Teams Plumbing Service Technician Relationship Specialty Start Date End Date Emmanuel Mccarthy MD [address] [place] [address] PCP - General Internal Medicine 07/31/20
--- OUTSIDE RECORDS SUMMARY | 2025-07-31 16:30 | XMS_ITS | Clinical Summary ---
Author Organization [facility] [address] [facility] Address [address] [place] [address] Phone Care Team Providers Care Game Show Host Name Role Phone Emmanuel Hyatt MD Primary Care Provi paz Encounters Date Type Department Care Team Description 05/24/2025 11:09 AM EDT - 05/24/2025 11:59 PM EDT Hospital Encounter [facility] CT Scan [address] [place] [address] Encounter for screening for malignant neoplasm of respiratory organs; Nicotine dependence, cigarettes, uncomplicated Discharge Disposition: Home or Self Care from Last 3 Months Surgical History Surgery Date Site/Laterality Comments OTHER SURGICAL HISTORY 2007 Bilateral PROCEDURE: [place] XCAPSL CTRC RMVL INSJ IO LENS PROSTH CPLX WO ECP Medical History Medical History Date Comments Back pain DX:Back pain COPD (chronic obstructive pu lmonary disease) (CMS/HCC V24, CMS/HCC V28) DX:COPD (chronic o bstructive pulmonary disease) ([facility]) Pulmonary nodules DX:Pulmonary n odules Social History [...] Assessment 2024 Depression Screening 09/20/2024 COVID-19 Vaccine ( - season) 2025 12/31/2020, 12/03/2020 Influenza Vaccine [...] Chest CT [place] 6 [place] ([id number]) -------- FINAL REPORT -------- Dictated By: Daniela Edmonds Dictated Date: 06/04/2025 10:46 ET Assigned Physician: Daniela Edmonds Reviewed and Electronically Signed By: Daniela Edmonds Signed Date: 06/04/2025 10:59 ET Workstation ID: [id number] Transcribed By: Self Edit Transcribed Date: 06/04/2025 10:46 ET Narrative 06/04/2025 10:59 AM EDT History: 65 year-old 58 pack-year current smoker, asymptomatic, for lung cancer screening. Comparison: 05/19/24 Technique: Helical volumetric imaging of the thorax was performed, using low- dose technique, without IV contrast. DLP: 122.04 mGy/cm CTDIvol: 3.22 mGy [employer] VCT Iterative reconstruction technique Findings: Lungs and [...] contrast. DLP: 122.04 mGy/cm CTDIvol: 3.22 mGy [employer] VCT Iterative reconstruction technique Findings: Lungs and [...] Chest CT in 6 months. [facility] JOYCE ([id number]) -------- FINAL REPORT -------- Dictated By: Daniela Edmonds Dictated Date: 06/04/2025 10:46 ET Assigned Physician: Daniela Edmonds Reviewed and Electronically Signed By: Daniela Edmonds Signed Date: 06/04/2025 10:59 ET Workstation ID: [id number] Transcribed By: Self Edit Transcribed Date: 06/04/2025 10:46 ET Lisbet Morse MD IMG CT PROCEDURES Final Result from Last 3 Months Insurance MEDICAID - [place] MEDICARE Care Teams Game Show Host Relationship Specialty Start Date End Date Emmanuel Hyatt MD [address] [place] [address] [place] [phone] PCP - General 09/21/23
--- OUTSIDE RECORDS SUMMARY | 2025-07-31 16:30 | XMS_ITS | Encounter Summary ---
Author Organization [employer] Address [address] [facility] 7t [place] [address] Care Team Providers Care Cigar Machine Feeder Name Role Phone Emmanuel Mccarthy MD Primary Care Provide r Reason for Visit * Reason Comments Med Refill Encounter Details Date Type Department Care Team ([facility] st Contact Info) Description 09/16/2023 Refill [facility] [address] [place] [phone] Samina Correa MD [address] [place], [place] [phone] COPD exacerbation (CMS/HCC) Social History Tobacco Use [...] Description 10/04/2025 1:15 PM EST Office Visit [facility] [address] [place] [address] Emmanuel Mccarthy MD [address] [place] [address] documented as of this encounter Visit Diagnoses Diagnosis COPD exacerbation (CMS/HCC) (HCC) Obstructive chronic bronchitis with exacerbation documented in this encounter Additional Health Concerns Assessment Noted Time PHQ-9 Depression Total Score: 0 12/18/19 23 2:25 PM EDT documented as of this encounter Care Teams Cigar Machine Feeder Relationship Specialty Start Date End Date Emmanuel Mccarthy MD [address] [place] [address] PCP - General Internal Medicine 07/31/20 documented as of this encounter
--- OUTSIDE RECORDS SUMMARY | 2025-07-31 16:30 | XMS_ITS | Encounter Summary ---
Author Organization [employer] Address [address] [facility] 7t [place] [address] Care Team Providers Care Hide Salter Name Role Phone Emmanuel Mccarthy MD Primary Care Provide r Encounter Details Date Type Department Care Team (Latest Contact Info) Description 06/26/2019 Abstract [facility] CONVERSIONS Dental, Provider, DDS Social History Tobacco [...] Description 10/04/2025 1:15 PM EST Office Visit [facility] MEDICINE [address] [place] [phone] Emmanuel Mccarthy MD [address] [place] [address] documented as of this encounter Visit Diagnoses Not on filedocumented in this encounter Care Teams Hide Salter Relationship Specialty Start Date End Date Emmanuel Mccarthy MD [address] [place] [phone] PCP - General Internal Medicine 07/31/20 documented as of this encounter
--- OUTSIDE RECORDS SUMMARY | 2025-07-31 16:30 | XMS_ITS | Encounter Summary ---
Author Organization [employer] Address [address] [facility] 7t [place] [address] Care Team Providers Care Surveillance Specialist Name Role Phone Emmanuel Mccarthy MD Primary Care Provide r Encounter Details Date Type Department Care Team ([facility] Contact Info) Description 06/05/2025 Orders Only [facility] [address] [place], [place] [phone] ProviderReynaldo MD Social History Tobacco Use Types [...] t he electric, gas, oil or water [employer] threatened to shut off services in your [...] Description 10/04/2025 1:15 PM EST Office Visit [facility] [address] [place] [address] Emmanuel Mccarthy MD [address] [place] [address] documented as of this encounter Procedures Procedure [...] documented as of this encounter Care Teams Surveillance Specialist Relationship Specialty Start Date End Date Emmanuel Mccarthy MD [address] [place] [address] PCP - General Internal Medicine 07/31/20 documented as of this encounter
== END 2025-07-31 15:52 | disposition home or self-care (01) ==
LOC: HO.HUSH 14:45
PROVIDERS: PCP Internal Medicine; Visit Provider Nurse Practitioner Family
DX: R97.20 Elevated prostate specific antigen [PSA] (principal); Z13.9 Encounter for screening, unspecified
CPT/HCPCS: 99213; G2211

== ENCOUNTER → 2025-07-31 14:44 | Outpatient (BNVA) | payer MEDICARE, MEDICAID, SELFPAY | PROVIDERS: PCP Internal Medicine; Visit Provider Nurse Practitioner Family | DX: R97.20 Elevated prostate specific antigen [PSA] (principal) | CPT/HCPCS: 81003; 99212 ==